=== PATIENT | female | born 1940 | race African-American/Black ===

== ENCOUNTER 2018-06-29 11:01 | Inpatient (IN) | payer MEDICARE, OTHER ==
[~2018-06-29] VITALS: Ht 177.8 cm; Wt 87.5 kg
[2018-06-29 11:02] VITALS: BP 110/41
[2018-06-29] MEDS ORDERED: PANTOPRAZOLE SO40 MG ORAL (11:05)
[2018-06-29] MEDS ORDERED: NAMENDA10 MG ORAL (11:05)
[2018-06-29] MEDS ORDERED: XALATAN2.5 ML LEFT EYE (11:05)
[2018-06-29] MEDS ORDERED: CENTRUM COMPLE1 EAC1 PO (11:05)
[2018-06-29] MEDS ORDERED: TRILEPTAL600 MG PO (11:05)
[2018-06-29] MEDS ORDERED: METFORMIN HCL500 M1 ORAL (11:05)
[2018-06-29] MEDS ORDERED: AMLODIPINE BESY10 MG ORAL (11:05)
[2018-06-29] MEDS ORDERED: XARELTO10 MG ORAL (11:05)
[2018-06-29] MEDS ORDERED: CATAPRES0.1 MG ORAL (11:05)
[2018-06-29] MEDS ORDERED: VENLAFAXINE HCL75 MG ORAL (11:05)
[2018-06-29] MEDS ORDERED: VITAMIN B-1100 MG ORAL (11:05)
[2018-06-29] MEDS: Ipratropium 0.02% Inh Soln 2.5ml UD HHN SCH ×3 (11:27→12:06)
[2018-06-29] MEDS: Albuterol ud Inhalation HHN SCH ×3 (11:28→12:06)
[2018-06-29] MEDS ORDERED: Solu-MEDROL 125mg Inj IVP ONE (11:30)
[2018-06-29] MEDS: Sodium Chloride 500ML 500 ML IV ONE ×2 (11:34→11:38)
[2018-06-29 11:48] LABS: APPEARANCE,URINE CLOUDY; BILIRUBIN, URINE NEGATIVE (NEGATIVE); GLUCOSE, URINE (UA) 1+ (NEGATIVE); KETONES,URINE NEGATIVE (NEGATIVE); LEUKOCYTE ESTERASE ,URINE 3+ (NEGATIVE); NITRITE,URINE NEGATIVE (NEGATIVE); PH,URINE 5 (4.5-8.0); PROTEIN,URINE 3+ (NEGATIVE); UROBILINOGEN,URINE 4 MG/DL (0.0-1.0)
[2018-06-29 11:50] LABS: BASOPHILS % (AUTO) 0.8 % (0.0-2.0); COLOR,URINE YELLOW; EOSINOPHILS % (AUTO) 0.4 % (0.0-3.0); HEMATOCRIT 45.5 % (37.0-47.0); HEMOGLOBIN 14.4 G/DL (12.0-16.0); MEAN CORPUSCULAR VOLUME 92 FL (80-99); MONOCYTES % (AUTO) 6.6 % (1.0-10.0); NEUTROPHILS % (AUTO) 81.3 % (45.0-75.0); PLATELET COUNT 289 K/UL (150-450); RED BLOOD COUNT 4.94 M/UL (4.20-5.40); RED CELL DISTRIBUTION WIDTH 12.3 % (11.6-14.8)
[2018-06-29 12:09] LABS: ANION GAP 4 mmol/L (5-15); BLOOD UREA NITROGEN 10 mg/dL (7-18); CALCIUM 9.5 MG/DL (8.5-10.1); CARBON DIOXIDE 28 MMOL/L (21-32); CHLORIDE 99 MMOL/L (98-107); CREATININE 0.7 MG/DL (0.55-1.30); POTASSIUM 4.6 MMOL/L (3.5-5.1); SODIUM 131 MMOL/L (136-145)
--- NOTE | 2018-06-29 12:09 | Diagnostic Imaging Report ---
Indication: Shortness of breath Technique: One view of the chest Comparison: none Findings: The heart is enlarged. There is bilateral interstitial edema possibly some airspace edema. There is evidence of bilateral pleural fluid Impression: Cardiomegaly Evidence of congestive heart failure, with interstitial and possibly airspace edema, bilateral pleural effusion
[2018-06-29 12:17] VITALS: BP 134/57
[2018-06-29 12:20] LABS: ALANINE AMINOTRANSFERASE 36 U/L (12-78); ALBUMIN 3.2 G/DL (3.4-5.0); ALBUMIN/GLOBULIN RATIO 0.8 (1.0-2.7); ALKALINE PHOSPHATASE 94 U/L (46-116); ASPARTATE AMINO TRANSFERASE 42 U/L (15-37); BILIRUBIN,TOTAL 0.6 MG/DL (0.2-1.0); CKMB 0.6 NG/ML (0.0-3.6); CREATINE KINASE 59 U/L (26-308)
[2018-06-29] MEDS ORDERED: Albuterol/Ipratropium 3ml neb HHN PRN (12:30)
[2018-06-29] MEDS ORDERED: Miralax 17gm pkt ORAL PRN (12:30)
[2018-06-29 13:12] VITALS: BP 122/53
[2018-06-29 13:43] VITALS: BP 102/46
--- NOTE | 2018-06-29 13:53 | Emergency Room Report ---
History of Present Illness General Chief Complaint: Dyspnea/Respdistress Source: Patient, Family Member, Medical Record Present Illness HPI 77-year-old female presents ED for shortness of breath 1 day. Coming from convalescent home. Wheezing. Low O2 sat. Started on breathing treatment by EMS.. Patient denies any fevers or chills. Denies chest pain. Denies cough. No other aggravating relieving factors. Denies any other associated symptoms Allergies: Coded Allergies: TAB INHIBITORS (Verified Allergy, Unknown, 06/29/18) Patient History Past Medical History: HTN, dementia Past Surgical History: none Pertinent Family History: none Social History: Denies: smoking, alcohol use, drug use Now: No Immunizations: UTD Reviewed Nursing Documentation: PMH: Agreed; PSxH: Agreed Nursing Documentation-PMH Past Medical History: No History, Except For Hx Hypertension: Yes - Contracture. UTI. Glaucoma History Of Psychiatric Problem: Yes - convulsion. depression. pressure ulcer stage 1 on sacral. Review of Systems All Other Systems: negative except mentioned in HPI Physical Exam Vital Signs Date Time Temp Pulse Resp B/P (MAP) Pulse Ox O2 Delivery O2 Flow Rate FiO2 06/29/18 10:56 99.0 110 22 124/62 96 Room Air 99.0 06/29/18 11:27 21 06/29/18 13:11 2.0 Sp02 EP Interpretation: reviewed, normal General Appearance: no apparent distress, alert, GCS 15, non-toxic Head: normocephalic, atraumatic Eyes: bilateral eye normal inspection, bilateral eye PERRL ENT: hearing grossly normal, normal pharynx, no angioedema, normal voice Neck: full range of motion, supple/symm/no masses Respiratory: chest non-tender, crackles, speaking full sentences, wheezing Cardiovascular #1: regular rate, rhythm, no edema Cardiovascular #2: 2+ carotid (R), 2+ carotid (L), 2+ radial (R), 2+ radial (L) , 2+ dorsalis pedis (R), 2+ dorsalis pedis (L) Gastrointestinal: normal bowel sounds, non tender, soft, non-distended, no guarding, no rebound Rectal: deferred Genitourinary: normal inspection, no CVA tenderness Musculoskeletal: back normal, gait/station normal, normal range of motion, non- tender Neurologic: alert, responsive, motor strength/tone normal, sensory intact, speech normal, other - dementia Psychiatric: judgement/insight normal, memory normal, mood/affect normal, no suicidal/homicidal ideation Reflexes: 3+ bicep (R), 3+ bicep (L), 3+ tricep (R), 3+ tricep (L), 3+ knee (R) , 3+ knee (L) Skin: normal color, no rash, warm/dry, well hydrated Lymphatic: no adenopathy Medical Decision Making Diagnostic Impression: Primary Impression: Pulmonary edema Qualified Codes: J81.0 - Acute pulmonary edema Additional Impression: Respiratory distress ER Course Hospital Course 77-year-old female presents ED complaining of shortness of breath, wheezing Differential diagnoses include: OK/unstable angina, contusion, muscle strain, PTX, rib fracture Clinical course Patient placed on stretcher. 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 After initial history and physical I ordered labs, EKG, chest x-ray, nebs labs reviewed- no leukocytosis, hemoglobin/hematocrit stable, electrolytes ok, troponins negative, BNP greater than 2000 EKG - NSR, no acute ischemic changes interpreted bym e Chest x-ray- cardiomegaly, billateral pleural effusions abx given. Discussed case with daughter Maria Esther Rangel ([phone]); she is power of finance attorney. States that patient was discharged lasting from [facility]. Patient was documented to have low ejection fraction and hospitalist discussed further treatment options with the patient but she declined. Patient does have dementia and is unable to make these decisions for herself. Case discussed with Dr. Locke and he agreed to accept the patient to his service for further care and support I. I feel this is a highly complex case requiring extensive working including EKG/Rhythm strip, Xray/CT/US, Blood/urine lab work, repeat exams while in ED, and administration of strong opiates/narcotics for pain control, admission to hospital or close patient follow up. Diagnosis - pulmoanry edema, respiratoy distress admitted to telemetry in serious condition Labs Test 06/29/18 11:20 White Blood Count 14.0 K/UL (4.8-10.8) Red Blood Count 4.94 M/UL (4.20-5.40) Hemoglobin 14.4 G/DL (12.0-16.0) Hematocrit 45.5 % (37.0-47.0) Mean Corpuscular Volume 92 FL (80-99) Mean Corpuscular Hemoglobin 29.1 PG (27.0-31.0) Mean Corpuscular Hemoglobin Concent 31.6 G/DL (32.0-36.0) Red Cell Distribution Width 12.3 % (11.6-14.8) Platelet Count 289 K/UL (150-450) Mean Platelet Volume 6.2 FL (6.5-10.1) Neutrophils (%) (Auto) 81.3 % (45.0-75.0) Lymphocytes (%) (Auto) 11.0 % (20.0-45.0) Monocytes (%) (Auto) 6.6 % (1.0-10.0) Eosinophils (%) (Auto) 0.4 % (0.0-3.0) Basophils (%) (Auto) 0.8 % (0.0-2.0) Urine Color Yellow Urine Appearance Cloudy Urine pH 5 (4.5-8.0) Urine Specific [place] 1.025 (1.005-1.035) Urine Protein 3+ (NEGATIVE) Urine Glucose (UA) 1+ (NEGATIVE) Urine Ketones Negative (NEGATIVE) Urine Occult Blood 2+ (NEGATIVE) Urine Nitrite Negative (NEGATIVE) Urine Bilirubin Negative (NEGATIVE) Urine Urobilinogen 4 MG/DL (0.0-1.0) Urine Leukocyte Esterase 3+ (NEGATIVE) Urine RBC 5-10 /HPF (0 - 2) Urine WBC Tntc /HPF (0 - 2) Urine Squamous Epithelial Cells Many /LPF (NONE/OCC) Urine Bacteria Few /HPF (NONE) Urine Yeast Many /HPF (NONE) Sodium Level 131 MMOL/L (136-145) Potassium Level 4.6 MMOL/L (3.5-5.1) Chloride Level 99 MMOL/L (98-107) Carbon Dioxide Level 28 MMOL/L (21-32) Anion Gap 4 mmol/L (5-15) Blood Urea Nitrogen 10 mg/dL (7-18) Creatinine 0.7 MG/DL (0.55-1.30) Estimat Glomerular Filtration Rate mL/min (>60) Glucose Level 280 MG/DL (74-106) Lactic Acid Level 1.00 mmol/L (0.4-2.0) Calcium Level 9.5 MG/DL (8.5-10.1) Total Bilirubin 0.6 MG/DL (0.2-1.0) Aspartate Amino Transf (AST/SGOT) 42 U/L (15-37) Alanine Aminotransferase (ALT/SGPT) 36 U/L (12-78) Alkaline Phosphatase 94 U/L (46-116) Total Creatine Kinase 59 U/L (26-308) Creatine Kinase MB 0.6 NG/ML (0.0-3.6) Creatine Kinase MB Relative Index 1.0 Troponin I 0.000 ng/mL (0.000-0.056) Pro-B-Type Natriuretic Peptide 2703 pg/mL (0-125) Total Protein 7.0 G/DL (6.4-8.2) Albumin 3.2 G/DL (3.4-5.0) Globulin 3.8 g/dL Albumin/Globulin Ratio 0.8 (1.0-2.7) EKG Diagnostic Results Rate: normal Rhythm: NSR ST Segments: no acute changes ASA given to the pt in ED: No Rhythm Strip Diag. Results EP Interpretation: yes Rhythm: NSR, no PVC's, no ectopy Chest X-Ray Diagnostic Results Chest X-Ray Diagnostic Results : Chest X-Ray Ordered: Yes # of Views/Limited/Complete: 1 View Indication: Shortness of Breath EP Interpretation: Yes Interpretation: no pneumothorax, no acute cardiopulmonary disease, other - bilateral effusion. cardiomegaly Impression: Other - pleural effusion Electronically Signed by: Electronically signed by Elvis Jacome MD Last Vital Signs Date Time Temp Pulse Resp B/P (MAP) Pulse Ox O2 Delivery O2 Flow Rate FiO2 06/29/18 13:43 97.9 119 20 102/46 (64) 91 97.9 06/29/18 13:12 Nasal Cannula 2.0 06/29/18 13:11 21 Status: improved Disposition: ADMITTED INPATIENT Condition: Serious Referrals: NON PHYSICIAN (PCP) Elvis Jacome MD Jun 29, 2018 13:53
[2018-06-29 16:00] VITALS: BP 106/47
[2018-06-29] MEDS: NovoLOG Insulin Flexpen SUBQ SCH ×2 (16:54→21:40)
--- NOTE | 2018-06-29 18:40 | Cardiology Report ---
APPROVED REPORT EXAM: Two-dimensional and M-mode echocardiogram with Doppler and color Doppler. INDICATION LV FUNCTION M-Mode DIMENSIONS IVSd1.5 (0.7-1.1cm)Left Atrium (MM)1.2 (1.6-4.0cm) LVDd5.7 (3.5-5.6cm)Aortic Root3.5 (2.0-3.7cm) PWd1.2 (0.7-1.1cm)Aortic Cusp Exc.1.8 (1.5-2.0cm) IVSs1.5 cm LVDs3.9 (2.5-4.0cm) PWs2.3 cm Technically difficult study due to poor apical windows. Antroseptal wall akinesia and septal wall dyskinesia is seen. Ischemic cardiomyopathy cannot be excluded. Mild left ventricular enlargement. Left ventricular ejection fraction is estimated to be 40%. No evidence of left ventricular hypertrophy. Small posterior pericardial effusion. Pleural effusion present. Left atrial chamber sizes is within normal limits . Right cardiac chamber sizes are within normal limits. Focal aortic valve sclerosis with adequate cusp excursion. Thickened mitral valve leaflets with normal excursion. Mitral annulus and aortic root calcification. Pulmonic valve not well visualized. Normal tricuspid valve structure. IVC dilated at 2.6 cm without physiologic collapse suggestive of increased RA pressure. A color flow and spectral Doppler study was performed and revealed: Trace aortic regurgitation. Mild mitral regurgitation. Diastolic function can not be assessed due to arrhythmia. Trace tricuspid regurgitation. Tricuspid systolic velocities suggests peak right ventricular systolic pressure of 33mmHg, Trace pulmonic regurgitation.
[2018-06-29 20:00] VITALS: BP 108/51
[2018-06-29] MEDS: OXcarbazepine 150mg tab ORAL SCH (21:38)
[2018-06-30] VITALS: BP 120/62
[2018-06-30 04:00] VITALS: BP 132/81
[2018-06-30] MEDS: NovoLOG Insulin Flexpen SUBQ SCH ×4 (06:12→21:17)
[2018-06-30 07:50] LABS: ANION GAP 5 mmol/L (5-15); BLOOD UREA NITROGEN 12 mg/dL (7-18); CALCIUM 9.8 MG/DL (8.5-10.1); CARBON DIOXIDE 31 MMOL/L (21-32); CHLORIDE 101 MMOL/L (98-107); CREATININE 0.8 MG/DL (0.55-1.30); POTASSIUM 4.4 MMOL/L (3.5-5.1); SODIUM 137 MMOL/L (136-145)
[2018-06-30 07:58] VITALS: BP 108/51
[2018-06-30] MEDS: Xarelto 10mg tab ORAL SCH (08:04)
--- NOTE | 2018-06-30 08:33 | Consultation ---
History of Present Illness General Date patient seen: Jun 30, 2018 Time patient seen: 08:28 Chief Complaint: Dyspnea/Respdistress Present Illness HPI 77 year old female with CHF, HTN, HDL presents with CP SOB, CXR shows pulmonary edema, LV systolic dysfunction with wall motion abnormalities. Troponin negative. Allergies: Coded Allergies: TAB INHIBITORS (Verified Allergy, Unknown, 06/29/18) Medication History Scheduled Amlodipine Besylate* (Amlodipine Besylate*), 10 MG ORAL DAILY, (Reported) Clonidine Hcl* (Catapres*), 0.1 MG ORAL EVERY 6 HOURS, (Reported) Latanoprost* (Xalatan*), 1 DROP LEFT EYE BEDTIME, (Reported) Memantine Hcl* (Namenda*), 10 MG ORAL QHS, (Reported) Metformin Hcl* (Metformin Hcl*), 500 MG ORAL TWICE A DAY, (Reported) Oxcarbazepine* (Trileptal*), 150 MG PO QHS, (Reported) Pantoprazole* (Pantoprazole*), 40 MG ORAL DAILY, (Reported) Rivaroxaban (Xarelto*), 20 MG ORAL DAILY, (Reported) Thiamine Hcl* (Vitamin B-1*), 100 MG ORAL DAILY, (Reported) Venlafaxine Hcl* (Venlafaxine Hcl*), 75 MG ORAL QID, (Reported) Miscellaneous Medications Multivitamin/Iron/Folic Acid (Centrum Complete Multivit Tab), 1 EACH PO, ( Reported) Patient History Healthcare decision maker Resuscitation status Full Code Advanced Directive on File Review of Systems Eye: Reports: no symptoms ENT: Reports: no symptoms Respiratory: Reports: shortness of breath Gastrointestinal: Reports: no symptoms Genitourinary: Reports: no symptoms Musculoskeletal: Reports: no symptoms Skin: Reports: no symptoms Neurological: Reports: no symptoms Endocrine: Reports: no symptoms Hematologic/Lymphatic: Reports: no symptoms Physical Exam General Appearance: no apparent distress Lines, tubes and drains: peripheral HEENT: normocephalic, atraumatic Neck: non-tender, normal alignment Respiratory/Chest: chest wall non-tender, crackles/rales Cardiovascular/Chest: normal peripheral pulses, normal rate Abdomen: normal bowel sounds, non tender Extremities: normal range of motion, non-tender Skin Exam: normal pigmentation Neurologic: 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 can 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 II-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 grossly normal, no motor/sensory deficits Last 24 Hour Vital Signs Date Time Temp Pulse Resp B/P (MAP) Pulse Ox O2 Delivery O2 Flow Rate FiO2 06/30/18 08:04 92 108/51 06/30/18 07:58 97.8 92 16 108/51 (70) 94 97.8 06/30/18 06:11 123/84 06/30/18 04:00 85 06/30/18 00:00 120/62 06/30/18 00:00 97.9 100 18 120/62 (81) 92 97.9 06/30/18 00:00 96 06/29/18 21:00 Nasal Cannula 2.0 06/29/18 20:00 105 06/29/18 20:00 98.2 104 20 108/51 (70) 91 98.2 06/29/18 17:12 106/47 06/29/18 16:00 105 06/29/18 16:00 97.3 106 21 106/47 (66) 94 97.3 06/29/18 14:38 Nasal Cannula 2.0 06/29/18 13:43 97.9 119 20 102/46 (64) 91 97.9 06/29/18 13:35 116 06/29/18 13:12 97.0 118 16 122/53 100 Nasal Cannula 2.0 97.0 06/29/18 13:11 97.0 118 16 122/53 100 Nasal Cannula 2.0 21 97.0 06/29/18 12:33 72 21 100 Room Air 21 06/29/18 12:17 86 15 134/57 99 06/29/18 12:06 103 14 100 Room Air 21 06/29/18 11:58 108 17 100 Room Air 21 06/29/18 11:27 107 21 100 06/29/18 11:27 108 21 Room Air 21 06/29/18 11:02 109 22 Room Air 06/29/18 11:02 97.0 106 21 110/41 99 Non-Rebreather 97.0 06/29/18 10:56 99.0 110 22 124/62 96 Room Air 99.0 Intake and Output 06/29/18 06/30/18 19:00 07:00 Intake Total 200 ml 240 ml Output Total 700 ml Balance 200 ml -460 ml Intake Oral 200 ml 240 ml Output Urine Total 700 ml # Voids 2 # Bowel Movements 1 2 Laboratory Tests Test 06/29/18 11:20 06/30/18 05:40 White Blood Count 14.0 K/UL (4.8-10.8) H Red Blood Count 4.94 M/UL (4.20-5.40) Hemoglobin 14.4 G/DL (12.0-16.0) Hematocrit 45.5 % (37.0-47.0) Mean Corpuscular Volume 92 FL (80-99) Mean Corpuscular Hemoglobin 29.1 PG (27.0-31.0) Mean Corpuscular Hemoglobin Concent 31.6 G/DL (32.0-36.0) L Red Cell Distribution Width 12.3 % (11.6-14.8) Platelet Count 289 K/UL (150-450) Mean Platelet Volume 6.2 FL (6.5-10.1) L Neutrophils (%) (Auto) 81.3 % (45.0-75.0) H Lymphocytes (%) (Auto) 11.0 % (20.0-45.0) L Monocytes (%) (Auto) 6.6 % (1.0-10.0) Eosinophils (%) (Auto) 0.4 % (0.0-3.0) Basophils (%) (Auto) 0.8 % (0.0-2.0) Urine Color Yellow Urine Appearance Cloudy Urine pH 5 (4.5-8.0) Urine Specific [place] 1.025 (1.005-1.035) Urine Protein 3+ (NEGATIVE) H Urine Glucose (UA) 1+ (NEGATIVE) H Urine Ketones Negative (NEGATIVE) Urine Occult Blood 2+ (NEGATIVE) H Urine Nitrite Negative (NEGATIVE) Urine Bilirubin Negative (NEGATIVE) Urine Urobilinogen 4 MG/DL (0.0-1.0) H Urine Leukocyte Esterase 3+ (NEGATIVE) H Urine RBC 5-10 /HPF (0 - 2) H Urine WBC Tntc /HPF (0 - 2) H Urine Squamous Epithelial Cells Many /LPF (NONE/OCC) H Urine Bacteria Few /HPF (NONE) Urine Yeast Many /HPF (NONE) H Sodium Level 131 MMOL/L (136-145) L 137 MMOL/L (136-145) Potassium Level 4.6 MMOL/L (3.5-5.1) 4.4 MMOL/L (3.5-5.1) Chloride Level 99 MMOL/L (98-107) 101 MMOL/L (98-107) Carbon Dioxide Level 28 MMOL/L (21-32) 31 MMOL/L (21-32) Anion Gap 4 mmol/L (5-15) L 5 mmol/L (5-15) Blood Urea Nitrogen 10 mg/dL (7-18) 12 mg/dL (7-18) Creatinine 0.7 MG/DL (0.55-1.30) 0.8 MG/DL (0.55-1.30) Estimat Glomerular Filtration Rate mL/min (>60) mL/min (>60) Glucose Level 280 MG/DL (74-106) H 138 MG/DL (74-106) #H Lactic Acid Level 1.00 mmol/L (0.4-2.0) Calcium Level 9.5 MG/DL (8.5-10.1) 9.8 MG/DL (8.5-10.1) Total Bilirubin 0.6 MG/DL (0.2-1.0) Aspartate Amino Transf (AST/SGOT) 42 U/L (15-37) H Alanine Aminotransferase (ALT/SGPT) 36 U/L (12-78) Alkaline Phosphatase 94 U/L (46-116) Total Creatine Kinase 59 U/L (26-308) Creatine Kinase MB 0.6 NG/ML (0.0-3.6) Creatine Kinase MB Relative Index 1.0 Troponin I 0.000 ng/mL (0.000-0.056) Pro-B-Type Natriuretic Peptide 2703 pg/mL (0-125) H Total Protein 7.0 G/DL (6.4-8.2) Albumin 3.2 G/DL (3.4-5.0) L Globulin 3.8 g/dL Albumin/Globulin Ratio 0.8 (1.0-2.7) L Microbiology Date/Time Source Procedure Growth Status 06/29/18 11:20 Urine,Clean Catch Urine Culture - Preliminary Resulted 06/29/18 11:30 Rectum Received Height (Feet): 5 Height (Inches): 10.00 Weight (Pounds): 193 Medications Current Medications Medications (Trade) Dose Ordered Sig/Young Route PRN Reason Start Time Stop Time Status Last Admin Dose Admin Acetaminophen (Tylenol) 650 mg Q4H PRN ORAL T>100.5 06/29/18 12:30 07/29/18 12:29 Albuterol/ Ipratropium (Albuterol/ Ipratropium) 3 ml Q4H PRN HHN Shortness of Breath 06/29/18 12:30 07/04/18 12:29 Amlodipine Besylate (Norvasc) 10 mg DAILY ORAL 06/30/18 09:00 07/30/18 08:59 06/30/18 08:04 Clonidine HCl (Catapres Tab) 0.1 mg EVERY 6 HOURS ORAL 06/29/18 18:00 07/29/18 17:59 06/30/18 06:11 Dextrose (Dextrose 50%) 25 ml PRN IV Hypoglycemia 06/29/18 12:45 07/29/18 12:44 Dextrose (Dextrose 50%) 50 ml PRN IV hypoglycemia 06/29/18 12:45 07/29/18 12:44 Furosemide (Lasix) 40 mg EVERY 8 HOURS IV 06/29/18 14:00 07/29/18 13:59 06/30/18 06:10 Insulin Aspart (NovoLOG) BEFORE MEALS AND HS SUBQ 06/29/18 16:30 07/29/18 16:29 06/30/18 06:12 Ondansetron HCl (Zofran) 4 mg Q6H PRN IVP Nausea & Vomiting 06/29/18 12:30 07/29/18 12:29 Oxcarbazepine (Trileptal) 150 mg QHS ORAL 06/29/18 21:00 07/29/18 20:59 06/29/18 21:38 Polyethylene Glycol (Miralax) 17 gm DAILYPRN PRN ORAL Constipation 06/29/18 12:30 07/29/18 12:29 Rivaroxaban (Xarelto) 20 mg DAILY ORAL 06/30/18 09:00 07/30/18 08:59 06/30/18 08:04 Temazepam (Restoril) 15 mg HSPRN PRN ORAL Insomnia 06/29/18 21:00 07/06/18 20:59 Assessment/Plan Status: stable Assessment/Plan Assessment: Shortness of breath Chest pain CHF systolic exacerbation Arrhythmias - atrial fibrillation Urinary tract infection Diabetes COPD Plan: Serial EKG/Troponin Echocardiogram reviewed -LVEF 40% global hypokinesis CXR reviewed with pulmonary edema Lasix 40 mg IV BID, monitor urine output and renal function 1.5 liter fluid restriction Pulmonary toilet/duonebs IV steroid boost Singulair Nitro prn chest pain Aspirin Statin Xarelto anticoagulation Change amlodipine to losartan 25 mg for afterload reduction Start metoprolol XL 50 mg daily Insulin per primary Ambulate Art Curtis M.D. Jun 30, 2018 08:33
[2018-06-30] MEDS: Losartan 25mg tab ORAL SCH (08:39)
[2018-06-30] MEDS: Metoprolol Succinate XL 25mg tab ORAL SCH (09:33)
--- NOTE | 2018-06-30 10:30 | Diagnostic Imaging Report ---
Indication: Dyspnea Technique: One view of the chest Comparison: 06/29/2018 Findings: Bilateral interstitial congestion appears somewhat improved. Bilateral pleural effusions persist, probably unchanged. The heart remains enlarged. Impression: Improved but persistent bilateral interstitial congestion, over one day Stable bilateral pleural effusions
--- NOTE | 2018-06-30 11:23 | Consultation ---
History of Present Illness General Date patient seen: Jun 30, 2018 Chief Complaint: Dyspnea/Respdistress Present Illness HPI 77-year-old female with hx of mdd and anxiety presents ED for shortness of breath 1 day. the pt has depressive and anxiety sxs. the pt is on effexor. the pt has not taken meds yet. the pt has no si/hi Allergies: Coded Allergies: TAB INHIBITORS (Verified Allergy, Unknown, 06/29/18) Medication History Scheduled Amlodipine Besylate* (Amlodipine Besylate*), 10 MG ORAL DAILY, (Reported) Clonidine Hcl* (Catapres*), 0.1 MG ORAL EVERY 6 HOURS, (Reported) Latanoprost* (Xalatan*), 1 DROP LEFT EYE BEDTIME, (Reported) Memantine Hcl* (Namenda*), 10 MG ORAL QHS, (Reported) Metformin Hcl* (Metformin Hcl*), 500 MG ORAL TWICE A DAY, (Reported) Oxcarbazepine* (Trileptal*), 150 MG PO QHS, (Reported) Pantoprazole* (Pantoprazole*), 40 MG ORAL DAILY, (Reported) Rivaroxaban (Xarelto*), 20 MG ORAL DAILY, (Reported) Thiamine Hcl* (Vitamin B-1*), 100 MG ORAL DAILY, (Reported) Venlafaxine Hcl* (Venlafaxine Hcl*), 75 MG ORAL QID, (Reported) Miscellaneous Medications Multivitamin/Iron/Folic Acid (Centrum Complete Multivit Tab), 1 EACH PO, ( Reported) Patient History Healthcare decision maker Resuscitation status Full Code Advanced Directive on File Past Medical/Surgical History Past Medical/Surgical History: (1) Respiratory distress (2) Pulmonary edema Review of Systems Psychiatric: Reports: prior hx, anxiety, depressed feelings, emotional problems Physical Exam General Appearance: no apparent distress, alert Neurologic: oriented x 3, responsive, depressed affect Last 24 Hour Vital Signs Date Time Temp Pulse Resp B/P (MAP) Pulse Ox O2 Delivery O2 Flow Rate FiO2 06/30/18 09:34 122/64 06/30/18 09:33 91 122/64 06/30/18 09:00 Nasal Cannula 2.0 06/30/18 08:39 108/51 06/30/18 08:04 92 108/51 06/30/18 08:00 92 06/30/18 07:58 97.8 92 16 108/51 (70) 94 97.8 06/30/18 06:11 123/84 06/30/18 04:00 85 06/30/18 00:00 120/62 06/30/18 00:00 97.9 100 18 120/62 (81) 92 97.9 06/30/18 00:00 96 06/29/18 21:00 Nasal Cannula 2.0 06/29/18 20:00 105 06/29/18 20:00 98.2 104 20 108/51 (70) 91 98.2 06/29/18 17:12 106/47 06/29/18 16:00 105 06/29/18 16:00 97.3 106 21 106/47 (66) 94 97.3 06/29/18 14:38 Nasal Cannula 2.0 06/29/18 13:43 97.9 119 20 102/46 (64) 91 97.9 06/29/18 13:35 116 06/29/18 13:12 97.0 118 16 122/53 100 Nasal Cannula 2.0 97.0 06/29/18 13:11 97.0 118 16 122/53 100 Nasal Cannula 2.0 21 97.0 06/29/18 12:33 72 21 100 Room Air 21 06/29/18 12:17 86 15 134/57 99 06/29/18 12:06 103 14 100 Room Air 21 06/29/18 11:58 108 17 100 Room Air 21 06/29/18 11:27 107 21 100 06/29/18 11:27 108 21 Room Air 21 Intake and Output 06/29/18 06/30/18 19:00 07:00 Intake Total 200 ml 240 ml Output Total 700 ml Balance 200 ml -460 ml Intake Oral 200 ml 240 ml Output Urine Total 700 ml # Voids 2 # Bowel Movements 1 2 Laboratory Tests Test 06/30/18 05:40 Sodium Level 137 MMOL/L (136-145) Potassium Level 4.4 MMOL/L (3.5-5.1) Chloride Level 101 MMOL/L (98-107) Carbon Dioxide Level 31 MMOL/L (21-32) Anion Gap 5 mmol/L (5-15) Blood Urea Nitrogen 12 mg/dL (7-18) Creatinine 0.8 MG/DL (0.55-1.30) Estimat Glomerular Filtration Rate mL/min (>60) Glucose Level 138 MG/DL (74-106) #H Calcium Level 9.8 MG/DL (8.5-10.1) Microbiology Date/Time Source Procedure Growth Status 06/29/18 11:30 Rectum Received Height (Feet): 5 Height (Inches): 10.00 Weight (Pounds): 193 Medications Current Medications Medications (Trade) Dose Ordered Sig/Young Route PRN Reason Start Time Stop Time Status Last Admin Dose Admin Acetaminophen (Tylenol) 650 mg Q4H PRN ORAL T>100.5 06/29/18 12:30 07/29/18 12:29 Albuterol/ Ipratropium (Albuterol/ Ipratropium) 3 ml Q4H PRN HHN Shortness of Breath 06/29/18 12:30 07/04/18 12:29 Clonidine HCl (Catapres Tab) 0.1 mg EVERY 12 HOURS ORAL 06/30/18 09:00 07/29/18 17:59 06/30/18 09:34 Dextrose (Dextrose 50%) 25 ml PRN IV Hypoglycemia 06/29/18 12:45 07/29/18 12:44 Dextrose (Dextrose 50%) 50 ml PRN IV hypoglycemia 06/29/18 12:45 07/29/18 12:44 Furosemide (Lasix) 40 mg EVERY 8 HOURS IV 06/29/18 14:00 07/29/18 13:59 06/30/18 06:10 Insulin Aspart (NovoLOG) BEFORE MEALS AND HS SUBQ 06/29/18 16:30 07/29/18 16:29 06/30/18 06:12 Losartan Potassium (Cozaar) 25 mg DAILY ORAL 06/30/18 09:00 07/30/18 08:59 Metoprolol Succinate (Toprol XL) 25 mg DAILY ORAL 06/30/18 09:00 07/30/18 08:59 06/30/18 09:33 Ondansetron HCl (Zofran) 4 mg Q6H PRN IVP Nausea & Vomiting 06/29/18 12:30 07/29/18 12:29 Oxcarbazepine (Trileptal) 150 mg QHS ORAL 06/29/18 21:00 07/29/18 20:59 06/29/18 21:38 Polyethylene Glycol (Miralax) 17 gm DAILYPRN PRN ORAL Constipation 06/29/18 12:30 07/29/18 12:29 Rivaroxaban (Xarelto) 20 mg DAILY ORAL 06/30/18 09:00 07/30/18 08:59 06/30/18 08:04 Temazepam (Restoril) 15 mg HSPRN PRN ORAL Insomnia 06/29/18 21:00 07/06/18 20:59 Assessment/Plan Assessment/Plan mdd anxiety effexor 75mg qam provided ro/Milton López MD Jun 30, 2018 11:23
[2018-06-30 11:56] VITALS: BP 126/55
[2018-06-30] MEDS: Venlafaxine XR 75mg cap ORAL SCH (13:29)
--- NOTE | 2018-06-30 14:49 | History and Physical ---
History of Present Illness General Date patient seen: Jun 30, 2018 Reason for Hospitalization: Dyspnea/Respdistress Present Illness HPI 77-year-old female with hx of dementia, CHF, CAD, [facility] presented to ED for shortness of breath. Pt was wheezing and had low O2 sat. Started on breathing treatment by EMS.. Patient denies any fevers or chills. Denies chest pain. Denies cough. No other aggravating relieving factors. Pt was recently discharged from [facility]. Her CXR showed pulmonary edema and pleural effusion. Allergies: Coded Allergies: TAB INHIBITORS (Verified Allergy, Unknown, 06/29/18) Medication History Scheduled Amlodipine Besylate* (Amlodipine Besylate*), 10 MG ORAL DAILY, (Reported) Clonidine Hcl* (Catapres*), 0.1 MG ORAL EVERY 6 HOURS, (Reported) Latanoprost* (Xalatan*), 1 DROP LEFT EYE BEDTIME, (Reported) Memantine Hcl* (Namenda*), 10 MG ORAL QHS, (Reported) Metformin Hcl* (Metformin Hcl*), 500 MG ORAL TWICE A DAY, (Reported) Oxcarbazepine* (Trileptal*), 150 MG PO QHS, (Reported) Pantoprazole* (Pantoprazole*), 40 MG ORAL DAILY, (Reported) Rivaroxaban (Xarelto*), 20 MG ORAL DAILY, (Reported) Thiamine Hcl* (Vitamin B-1*), 100 MG ORAL DAILY, (Reported) Venlafaxine Hcl* (Venlafaxine Hcl*), 75 MG ORAL QID, (Reported) Miscellaneous Medications Multivitamin/Iron/Folic Acid (Centrum Complete Multivit Tab), 1 EACH PO, ( Reported) Patient History Healthcare decision maker Resuscitation status Full Code Advanced Directive on File Past Medical/Surgical History Past Medical/Surgical History: (1) CAD (coronary artery disease) (2) Dementia (3) DVT (deep venous thrombosis) (4) Diabetes mellitus Review of Systems All Other Systems: negative except mentioned in HPI Physical Exam General Appearance: WD/WN, no apparent distress Lines, tubes and drains: peripheral, central line HEENT: normocephalic, atraumatic Neck: non-tender, normal alignment Respiratory/Chest: chest wall non-tender, lungs clear Cardiovascular/Chest: normal peripheral pulses, normal rate Abdomen: normal bowel sounds Genitourinary/Rectal: normal genital exam Extremities: normal range of motion 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 Last 24 Hour Vital Signs Date Time Temp Pulse Resp B/P (MAP) Pulse Ox O2 Delivery O2 Flow Rate FiO2 06/30/18 12:00 75 06/30/18 11:56 98.1 99 16 126/55 (78) 96 98.1 06/30/18 09:34 122/64 06/30/18 09:33 91 122/64 06/30/18 09:00 Nasal Cannula 2.0 06/30/18 08:39 108/51 06/30/18 08:04 92 108/51 06/30/18 08:00 92 06/30/18 07:58 97.8 92 16 108/51 (70) 94 97.8 06/30/18 06:11 123/84 06/30/18 04:00 85 06/30/18 00:00 120/62 06/30/18 00:00 97.9 100 18 120/62 (81) 92 97.9 06/30/18 00:00 96 06/29/18 21:00 Nasal Cannula 2.0 06/29/18 20:00 105 06/29/18 20:00 98.2 104 20 108/51 (70) 91 98.2 06/29/18 17:12 106/47 06/29/18 16:00 105 06/29/18 16:00 97.3 106 21 106/47 (66) 94 97.3 06/29/18 14:38 Nasal Cannula 2.0 Intake and Output 06/29/18 06/30/18 19:00 07:00 Intake Total 200 ml 240 ml Output Total 700 ml Balance 200 ml -460 ml Intake Oral 200 ml 240 ml Output Urine Total 700 ml # Voids 2 # Bowel Movements 1 2 Laboratory Tests Test 06/30/18 05:40 06/30/18 12:30 Sodium Level 137 MMOL/L (136-145) Potassium Level 4.4 MMOL/L (3.5-5.1) Chloride Level 101 MMOL/L (98-107) Carbon Dioxide Level 31 MMOL/L (21-32) Anion Gap 5 mmol/L (5-15) Blood Urea Nitrogen 12 mg/dL (7-18) Creatinine 0.8 MG/DL (0.55-1.30) Estimat Glomerular Filtration Rate mL/min (>60) Glucose Level 138 MG/DL (74-106) #H Calcium Level 9.8 MG/DL (8.5-10.1) Troponin I 0.024 ng/mL (0.000-0.056) Height (Feet): 5 Height (Inches): 10.00 Weight (Pounds): 193 Medications Current Medications Medications (Trade) Dose Ordered Sig/Young Route PRN Reason Start Time Stop Time Status Last Admin Dose Admin Acetaminophen (Tylenol) 650 mg Q4H PRN ORAL T>100.5 06/29/18 12:30 07/29/18 12:29 Albuterol/ Ipratropium (Albuterol/ Ipratropium) 3 ml Q4H PRN HHN Shortness of Breath 06/29/18 12:30 07/04/18 12:29 Clonidine HCl (Catapres Tab) 0.1 mg EVERY 12 HOURS ORAL 06/30/18 09:00 07/29/18 17:59 06/30/18 09:34 Dextrose (Dextrose 50%) 25 ml PRN IV Hypoglycemia 06/29/18 12:45 07/29/18 12:44 Dextrose (Dextrose 50%) 50 ml PRN IV hypoglycemia 06/29/18 12:45 07/29/18 12:44 Furosemide (Lasix) 40 mg EVERY 8 HOURS IV 06/29/18 14:00 07/29/18 13:59 06/30/18 13:30 Insulin Aspart (NovoLOG) BEFORE MEALS AND HS SUBQ 06/29/18 16:30 07/29/18 16:29 06/30/18 11:23 Losartan Potassium (Cozaar) 25 mg DAILY ORAL 06/30/18 09:00 07/30/18 08:59 Metoprolol Succinate (Toprol XL) 25 mg DAILY ORAL 06/30/18 09:00 07/30/18 08:59 06/30/18 09:33 Ondansetron HCl (Zofran) 4 mg Q6H PRN IVP Nausea & Vomiting 06/29/18 12:30 07/29/18 12:29 Oxcarbazepine (Trileptal) 150 mg QHS ORAL 06/29/18 21:00 07/29/18 20:59 06/29/18 21:38 Polyethylene Glycol (Miralax) 17 gm DAILYPRN PRN ORAL Constipation 06/29/18 12:30 07/29/18 12:29 Rivaroxaban (Xarelto) 20 mg DAILY ORAL 06/30/18 09:00 07/30/18 08:59 06/30/18 08:04 Temazepam (Restoril) 15 mg HSPRN PRN ORAL Insomnia 06/29/18 21:00 07/06/18 20:59 Venlafaxine HCl (Effexor-XR) 75 mg DAILY ORAL 06/30/18 13:00 07/30/18 12:59 06/30/18 13:29 Assessment/Plan Problem List: (1) Acute respiratory failure ICD Codes: J96.00 - Acute respiratory failure, unspecified whether with hypoxia or hypercapnia SNOMED: 07252925 (2) Pulmonary edema ICD Codes: J81.1 - Chronic pulmonary edema SNOMED: 14896282 Qualifiers: Qualified Codes: J81.0 - Acute pulmonary edema (3) CAD (coronary artery disease) ICD Codes: I25.10 - Atherosclerotic heart disease of [place] coronary artery without angina pectoris SNOMED: 15020675 (4) DVT (deep venous thrombosis) ICD Codes: I82.409 - Acute embolism and thrombosis of unspecified deep veins of unspecified lower extremity SNOMED: 287094028 (5) Diabetes mellitus ICD Codes: E11.9 - Type 2 diabetes mellitus without complications SNOMED: 75111970 (6) Dementia ICD Codes: F03.90 - Unspecified dementia without behavioral disturbance SNOMED: 01902347 Assessment/Plan echo venous doppler check BNP respiratory treatment check electrolytes titrate fio2 to sat of 92% d/w pts daughter extensively Mariah Locke MD Jun 30, 2018 14:49
[2018-06-30 15:26] VITALS: BP 132/65
[2018-06-30 19:56] VITALS: BP 101/51
[2018-06-30] MEDS: OXcarbazepine 150mg tab ORAL SCH (21:16)
[2018-07-01 00:15] VITALS: BP 104/51
[2018-07-01 04:00] VITALS: BP 118/52
[2018-07-01] MEDS: NovoLOG Insulin Flexpen SUBQ SCH ×4 (05:58→21:33)
[2018-07-01 07:43] LABS: EOSINOPHILS % (AUTO) 1.1 % (0.0-3.0); HEMATOCRIT 41.3 % (37.0-47.0); HEMOGLOBIN 13.6 G/DL (12.0-16.0); LYMPHOCYTES % (AUTO) 25.7 % (20.0-45.0); MEAN CORPUSCULAR VOLUME 91 FL (80-99); MONOCYTES % (AUTO) 7.2 % (1.0-10.0); PLATELET COUNT 277 K/UL (150-450); RED BLOOD COUNT 4.54 M/UL (4.20-5.40); RED CELL DISTRIBUTION WIDTH 12.4 % (11.6-14.8); WHITE BLOOD COUNT 11.2 K/UL (4.8-10.8)
[2018-07-01 08:00] VITALS: BP 104/50
[2018-07-01 08:18] LABS: ALANINE AMINOTRANSFERASE 24 U/L (12-78); ALBUMIN 3.1 G/DL (3.4-5.0); ALBUMIN/GLOBULIN RATIO 0.9 (1.0-2.7); ALKALINE PHOSPHATASE 66 U/L (46-116); ANION GAP 4 mmol/L (5-15); ASPARTATE AMINO TRANSFERASE 14 U/L (15-37); BILIRUBIN,TOTAL 0.5 MG/DL (0.2-1.0); BLOOD UREA NITROGEN 20 mg/dL (7-18); CALCIUM 9.9 MG/DL (8.5-10.1); CARBON DIOXIDE 36 MMOL/L (21-32); CHLORIDE 99 MMOL/L (98-107); CREATININE 0.8 MG/DL (0.55-1.30); POTASSIUM 3.5 MMOL/L (3.5-5.1); SODIUM 139 MMOL/L (136-145)
--- NOTE | 2018-07-01 08:26 | Diagnostic Imaging Report ---
Indication: Dyspnea Technique: One view of the chest Comparison: 06/30/2018 Findings: Previously demonstrated bilateral pleural fluid appears slightly improved. Portal and interstitial congestive changes also appear slightly improved. The heart remains enlarged. Impression: Interim slight improvement of previously demonstrated bilateral pleural effusions and interstitial congestion
[2018-07-01] MEDS: Metoprolol Succinate XL 25mg tab ORAL SCH (09:37)
[2018-07-01] MEDS: Venlafaxine XR 75mg cap ORAL SCH (09:37)
[2018-07-01] MEDS: Losartan 25mg tab ORAL SCH (09:37)
[2018-07-01] MEDS: Xarelto 10mg tab ORAL SCH (09:38)
--- NOTE | 2018-07-01 10:17 | Cardiology Progress Note ---
Assessment/Plan Status: stable Assessment/Plan Assessment: Shortness of breath Chest pain CHF systolic exacerbation Arrhythmias - atrial fibrillation Urinary tract infection Diabetes COPD Plan: Serial EKG/Troponin Echocardiogram reviewed -LVEF 40% global hypokinesis CXR reviewed with pulmonary edema Lasix 40 mg IV BID, monitor urine output and renal function 1.5 liter fluid restriction Pulmonary toilet/duonebs IV steroid boost Singulair Nitro prn chest pain Aspirin Statin Xarelto anticoagulation Change amlodipine to losartan 25 mg for afterload reduction Start metoprolol XL 50 mg daily Insulin per primary Ambulate Subjective Cardiovascular: Reports: no symptoms Respiratory: Reports: no symptoms Gastrointestinal/Abdominal: Reports: no symptoms Genitourinary: Reports: no symptoms Subjective No acute events vitals stable, CXR Interim slight improvement of previously demonstrated bilateral pleural effusions and interstitial congestion Objective Last 24 Hour Vital Signs Date Time Temp Pulse Resp B/P (MAP) Pulse Ox O2 Delivery O2 Flow Rate FiO2 07/01/18 09:37 104/50 07/01/18 09:37 80 104/50 07/01/18 09:00 104/50 07/01/18 08:00 97.9 80 18 104/50 (68) 97 97.9 80 07/01/18 04:00 96.3 77 16 118/52 (74) 96 96.3 77 07/01/18 04:00 69 07/01/18 00:15 97.5 75 20 104/51 (68) 96 97.5 75 07/01/18 00:00 71 06/30/18 21:00 Nasal Cannula 2.0 06/30/18 20:00 75 06/30/18 19:56 97.7 79 15 101/51 (68) 93 97.7 79 06/30/18 16:00 71 06/30/18 15:26 97.9 81 16 132/65 (87) 96 97.9 06/30/18 12:00 75 06/30/18 11:56 98.1 99 16 126/55 (78) 96 98.1 General Appearance: no apparent distress, alert EENT: PERRL/EOMI, normal ENT inspection Neck: non-tender, normal alignment Rhythm: NSR Cardiovascular: normal peripheral pulses, normal rate Respiratory/Chest: chest wall non-tender, lungs clear Abdomen: normal bowel sounds, non tender Extremities: normal range of motion, non-tender Neurologic: pt escort II-XII grossly normal Intake and Output 06/30/18 07/01/18 19:00 07:00 Intake Total 120 ml Output Total 1900 ml 1500 ml Balance -1780 ml -1500 ml Intake Oral 120 ml Output Urine Total 1900 ml 1500 ml # Voids 3 # Bowel Movements 6 1 Laboratory Tests Test 06/30/18 12:30 07/01/18 07:16 Troponin I 0.024 ng/mL (0.000-0.056) 0.003 ng/mL (0.000-0.056) White Blood Count 11.2 K/UL (4.8-10.8) H Red Blood Count 4.54 M/UL (4.20-5.40) Hemoglobin 13.6 G/DL (12.0-16.0) Hematocrit 41.3 % (37.0-47.0) Mean Corpuscular Volume 91 FL (80-99) Mean Corpuscular Hemoglobin 30.0 PG (27.0-31.0) Mean Corpuscular Hemoglobin Concent 33.0 G/DL (32.0-36.0) Red Cell Distribution Width 12.4 % (11.6-14.8) Platelet Count 277 K/UL (150-450) Mean Platelet Volume 6.0 FL (6.5-10.1) L Neutrophils (%) (Auto) 65.0 % (45.0-75.0) Lymphocytes (%) (Auto) 25.7 % (20.0-45.0) Monocytes (%) (Auto) 7.2 % (1.0-10.0) Eosinophils (%) (Auto) 1.1 % (0.0-3.0) Basophils (%) (Auto) 1.0 % (0.0-2.0) Sodium Level 139 MMOL/L (136-145) Potassium Level 3.5 MMOL/L (3.5-5.1) Chloride Level 99 MMOL/L (98-107) Carbon Dioxide Level 36 MMOL/L (21-32) H Anion Gap 4 mmol/L (5-15) L Blood Urea Nitrogen 20 mg/dL (7-18) H Creatinine 0.8 MG/DL (0.55-1.30) Estimat Glomerular Filtration Rate mL/min (>60) Glucose Level 98 MG/DL (74-106) Calcium Level 9.9 MG/DL (8.5-10.1) Total Bilirubin 0.5 MG/DL (0.2-1.0) Aspartate Amino Transf (AST/SGOT) 14 U/L (15-37) L Alanine Aminotransferase (ALT/SGPT) 24 U/L (12-78) Alkaline Phosphatase 66 U/L (46-116) Pro-B-Type Natriuretic Peptide 1696 pg/mL (0-125) H Total Protein 6.5 G/DL (6.4-8.2) Albumin 3.1 G/DL (3.4-5.0) L Globulin 3.4 g/dL Albumin/Globulin Ratio 0.9 (1.0-2.7) L Microbiology Date/Time Source Procedure Growth Status 06/29/18 11:35 Blood Blood Culture - Preliminary NO GROWTH AFTER 24 HOURS Resulted 06/29/18 11:20 Blood Blood Culture - Preliminary NO GROWTH AFTER 24 HOURS Resulted 06/29/18 11:30 Nasal Nares MRSA Culture - Final NO METHICILLIN RESISTANT STAPH AUREUS... Complete 06/29/18 11:20 Urine,Clean Catch Urine Culture - Preliminary YEAST Resulted 06/29/18 11:30 Rectum VRE Culture - Final Enterococcus Faecalis - Vre Complete 06/29/18 11:30 Rectum - Final NO CARBAPENEM-RESISTANT ENTEROBACTERI... Complete Art Curtis M.D. Jul 01, 2018 10:17
[2018-07-01 12:00] VITALS: BP 116/54
--- NOTE | 2018-07-01 12:54 | General Progress Note ---
Assessment/Plan Problem List: (1) Pulmonary edema ICD Codes: J81.1 - Chronic pulmonary edema SNOMED: 43625112 Qualifiers: Qualified Codes: J81.0 - Acute pulmonary edema (2) CAD (coronary artery disease) ICD Codes: I25.10 - Atherosclerotic heart disease of [place] coronary artery without angina pectoris SNOMED: 49257723 (3) Diabetes mellitus ICD Codes: E11.9 - Type 2 diabetes mellitus without complications SNOMED: 19248977 (4) DVT (deep venous thrombosis) ICD Codes: I82.409 - Acute embolism and thrombosis of unspecified deep veins of unspecified lower extremity SNOMED: 227440527 Status Narrative (1) Acute respiratory failure (2) Pulmonary edema (3) CAD (coronary artery disease) (4) DVT (deep venous thrombosis) (5) Diabetes mellitus (6) Dementia Assessment/Plan meds reviewed labs reviewed has UTI per Cardio DC clonidine Monitor lytes gastric support labs in am Subjective Date patient seen: Jul 01, 2018 Time patient seen: 12:00 ROS Limited/Unobtainable: Yes Constitutional: Reports: other - Seen for Dr bonilla Int Med. Patient poor historian Respiratory: Reports: SOB with excertion Allergies: Coded Allergies: TAB INHIBITORS (Verified Allergy, Unknown, 06/29/18) Objective Last 24 Hour Vital Signs Date Time Temp Pulse Resp B/P (MAP) Pulse Ox O2 Delivery O2 Flow Rate FiO2 07/01/18 09:37 104/50 07/01/18 09:37 80 104/50 07/01/18 09:00 104/50 07/01/18 08:00 Nasal Cannula 2.0 07/01/18 08:00 97.9 80 18 104/50 (68) 97 97.9 80 07/01/18 04:00 96.3 77 16 118/52 (74) 96 96.3 77 07/01/18 04:00 69 07/01/18 00:15 97.5 75 20 104/51 (68) 96 97.5 75 07/01/18 00:00 71 06/30/18 21:00 Nasal Cannula 2.0 06/30/18 20:00 75 06/30/18 19:56 97.7 79 15 101/51 (68) 93 97.7 79 06/30/18 16:00 71 06/30/18 15:26 97.9 81 16 132/65 (87) 96 97.9 Intake and Output 06/30/18 07/01/18 19:00 07:00 Intake Total 120 ml Output Total 1900 ml 1500 ml Balance -1780 ml -1500 ml Intake Oral 120 ml Output Urine Total 1900 ml 1500 ml # Voids 3 # Bowel Movements 6 1 Laboratory Tests 07/01/18 07:16: White Blood Count 11.2H, Red Blood Count 4.54, Hemoglobin 13.6, Hematocrit 41.3 , Mean Corpuscular Volume 91, Mean Corpuscular Hemoglobin 30.0, Mean Corpuscular Hemoglobin Concent 33.0, Red Cell Distribution Width 12.4, Platelet Count 277, Mean Platelet Volume 6.0L, Neutrophils (%) (Auto) 65.0, Lymphocytes ( %) (Auto) 25.7, Monocytes (%) (Auto) 7.2, Eosinophils (%) (Auto) 1.1, Basophils (%) (Auto) 1.0, Sodium Level 139, Potassium Level 3.5, Chloride Level 99, Carbon Dioxide Level 36H, Anion Gap 4L, Blood Urea Nitrogen 20H, Creatinine 0.8 , Estimat Glomerular Filtration Rate , Glucose Level 98, Calcium Level 9.9, Total Bilirubin 0.5, Aspartate Amino Transf (AST/SGOT) 14L, Alanine Aminotransferase (ALT/SGPT) 24, Alkaline Phosphatase 66, Troponin I 0.003, Pro-B -Type Natriuretic Peptide 1696H, Total Protein 6.5, Albumin 3.1L, Globulin 3.4, Albumin/Globulin Ratio 0.9L 07/01/18 12:25: Troponin I [Pending] Height (Feet): 5 Height (Inches): 10.00 Weight (Pounds): 194 Albino Retana MD Jul 01, 2018 12:54
--- NOTE | 2018-07-01 15:45 | General Progress Note ---
Assessment/Plan Assessment/Plan mdd anxiety effexor 75mg qam provided ro/st Subjective Date patient seen: Jul 01, 2018 Neurologic/Psychiatric: Reports: anxiety, depressed, emotional problems Allergies: Coded Allergies: TAB INHIBITORS (Verified Allergy, Unknown, 06/29/18) Objective Last 24 Hour Vital Signs Date Time Temp Pulse Resp B/P (MAP) Pulse Ox O2 Delivery O2 Flow Rate FiO2 07/01/18 12:00 98.6 77 22 116/54 (74) 97 98.6 77 07/01/18 11:40 70 07/01/18 09:37 104/50 07/01/18 09:37 80 104/50 07/01/18 09:00 104/50 07/01/18 08:00 Nasal Cannula 2.0 07/01/18 08:00 97.9 80 18 104/50 (68) 97 97.9 80 07/01/18 07:18 82 07/01/18 04:00 96.3 77 16 118/52 (74) 96 96.3 77 07/01/18 04:00 69 07/01/18 00:15 97.5 75 20 104/51 (68) 96 97.5 75 07/01/18 00:00 71 06/30/18 21:00 Nasal Cannula 2.0 06/30/18 20:00 75 06/30/18 19:56 97.7 79 15 101/51 (68) 93 97.7 79 06/30/18 16:00 71 Intake and Output 06/30/18 07/01/18 19:00 07:00 Intake Total 120 ml Output Total 1900 ml 1500 ml Balance -1780 ml -1500 ml Intake Oral 120 ml Output Urine Total 1900 ml 1500 ml # Voids 3 # Bowel Movements 6 1 Laboratory Tests 07/01/18 07:16: White Blood Count 11.2H, Red Blood Count 4.54, Hemoglobin 13.6, Hematocrit 41.3 , Mean Corpuscular Volume 91, Mean Corpuscular Hemoglobin 30.0, Mean Corpuscular Hemoglobin Concent 33.0, Red Cell Distribution Width 12.4, Platelet Count 277, Mean Platelet Volume 6.0L, Neutrophils (%) (Auto) 65.0, Lymphocytes ( %) (Auto) 25.7, Monocytes (%) (Auto) 7.2, Eosinophils (%) (Auto) 1.1, Basophils (%) (Auto) 1.0, Sodium Level 139, Potassium Level 3.5, Chloride Level 99, Carbon Dioxide Level 36H, Anion Gap 4L, Blood Urea Nitrogen 20H, Creatinine 0.8 , Estimat Glomerular Filtration Rate , Glucose Level 98, Calcium Level 9.9, Total Bilirubin 0.5, Aspartate Amino Transf (AST/SGOT) 14L, Alanine Aminotransferase (ALT/SGPT) 24, Alkaline Phosphatase 66, Troponin I 0.003, Pro-B -Type Natriuretic Peptide 1696H, Total Protein 6.5, Albumin 3.1L, Globulin 3.4, Albumin/Globulin Ratio 0.9L 07/01/18 12:25: Troponin I 0.007, C-Reactive Protein, Quantitative 0.7 Height (Feet): 5 Height (Inches): 10.00 Weight (Pounds): 194 Milton Schultz MD Jul 01, 2018 15:45
[2018-07-01 16:00] VITALS: BP 112/61
--- NOTE | 2018-07-01 16:13 | Pulmonology Progress Note ---
Assessment/Plan Problems: (1) Acute respiratory failure (2) Pulmonary edema (3) CAD (coronary artery disease) (4) DVT (deep venous thrombosis) (5) Diabetes mellitus (6) Dementia Assessment/Plan improving BNP and cxr improving less sob continue diuretics sliding scale dvt prophylaxis Subjective ROS Limited/Unobtainable: No Constitutional: Reports: no symptoms HEENT: Repors: no symptoms Respiratory: Reports: no symptoms Allergies: Coded Allergies: TAB INHIBITORS (Verified Allergy, Unknown, 06/29/18) Objective Last 24 Hour Vital Signs Date Time Temp Pulse Resp B/P (MAP) Pulse Ox O2 Delivery O2 Flow Rate FiO2 07/01/18 12:00 98.6 77 22 116/54 (74) 97 98.6 77 07/01/18 11:40 70 07/01/18 09:37 104/50 07/01/18 09:37 80 104/50 07/01/18 09:00 104/50 07/01/18 08:00 Nasal Cannula 2.0 07/01/18 08:00 97.9 80 18 104/50 (68) 97 97.9 80 07/01/18 07:18 82 07/01/18 04:00 96.3 77 16 118/52 (74) 96 96.3 77 07/01/18 04:00 69 07/01/18 00:15 97.5 75 20 104/51 (68) 96 97.5 75 07/01/18 00:00 71 06/30/18 21:00 Nasal Cannula 2.0 06/30/18 20:00 75 06/30/18 19:56 97.7 79 15 101/51 (68) 93 97.7 79 Intake and Output 06/30/18 07/01/18 19:00 07:00 Intake Total 120 ml Output Total 1900 ml 1500 ml Balance -1780 ml -1500 ml Intake Oral 120 ml Output Urine Total 1900 ml 1500 ml # Voids 3 # Bowel Movements 6 1 General Appearance: WD/WN HEENT: normocephalic, atraumatic Respiratory/Chest: chest wall non-tender, lungs clear Breasts: no masses Cardiovascular: normal peripheral pulses Abdomen: normal bowel sounds, soft, non tender Extremities: no cyanosis, no clubbing Skin: no rash 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 Complete 06/29/18 11:20 Urine,Clean Catch Urine Culture - Preliminary YEAST Resulted 06/29/18 11:30 Rectum VRE Culture - Final Enterococcus Faecalis - Vre Complete 06/29/18 11:30 Rectum - Final NO CARBAPENEM-RESISTANT ENTEROBACTERI... Complete Laboratory Tests 07/01/18 07:16: White Blood Count 11.2H, Red Blood Count 4.54, Hemoglobin 13.6, Hematocrit 41.3 , Mean Corpuscular Volume 91, Mean Corpuscular Hemoglobin 30.0, Mean Corpuscular Hemoglobin Concent 33.0, Red Cell Distribution Width 12.4, Platelet Count 277, Mean Platelet Volume 6.0L, Neutrophils (%) (Auto) 65.0, Lymphocytes ( %) (Auto) 25.7, Monocytes (%) (Auto) 7.2, Eosinophils (%) (Auto) 1.1, Basophils (%) (Auto) 1.0, Sodium Level 139, Potassium Level 3.5, Chloride Level 99, Carbon Dioxide Level 36H, Anion Gap 4L, Blood Urea Nitrogen 20H, Creatinine 0.8 , Estimat Glomerular Filtration Rate , Glucose Level 98, Calcium Level 9.9, Total Bilirubin 0.5, Aspartate Amino Transf (AST/SGOT) 14L, Alanine Aminotransferase (ALT/SGPT) 24, Alkaline Phosphatase 66, Troponin I 0.003, Pro-B -Type Natriuretic Peptide 1696H, Total Protein 6.5, Albumin 3.1L, Globulin 3.4, Albumin/Globulin Ratio 0.9L 07/01/18 12:25: Troponin I 0.007, C-Reactive Protein, Quantitative 0.7 Current Medications Medications (Trade) Dose Ordered Sig/Young Route PRN Reason Start Time Stop Time Status Last Admin Dose Admin Acetaminophen (Tylenol) 650 mg Q4H PRN ORAL T>100.5 06/29/18 12:30 07/29/18 12:29 Albuterol/ Ipratropium (Albuterol/ Ipratropium) 3 ml Q4H PRN HHN Shortness of Breath 06/29/18 12:30 07/04/18 12:29 Dextrose (Dextrose 50%) 25 ml PRN IV Hypoglycemia 06/29/18 12:45 07/29/18 12:44 Dextrose (Dextrose 50%) 50 ml PRN IV hypoglycemia 06/29/18 12:45 07/29/18 12:44 Famotidine (Pepcid) 20 mg BID ORAL 07/01/18 13:04 07/31/18 13:03 07/01/18 13:27 Furosemide (Lasix) 40 mg EVERY 8 HOURS IV 06/29/18 14:00 07/29/18 13:59 07/01/18 13:27 Insulin Aspart (NovoLOG) BEFORE MEALS AND HS SUBQ 06/29/18 16:30 07/29/18 16:29 07/01/18 11:59 Losartan Potassium (Cozaar) 25 mg DAILY ORAL 06/30/18 09:00 07/30/18 08:59 07/01/18 09:37 Metoprolol Succinate (Toprol XL) 25 mg DAILY ORAL 06/30/18 09:00 07/30/18 08:59 07/01/18 09:37 Ondansetron HCl (Zofran) 4 mg Q6H PRN IVP Nausea & Vomiting 06/29/18 12:30 07/29/18 12:29 Oxcarbazepine (Trileptal) 150 mg QHS ORAL 06/29/18 21:00 07/29/18 20:59 06/30/18 21:16 Polyethylene Glycol (Miralax) 17 gm DAILYPRN PRN ORAL Constipation 06/29/18 12:30 07/29/18 12:29 Rivaroxaban (Xarelto) 20 mg DAILY ORAL 06/30/18 09:00 07/30/18 08:59 07/01/18 09:38 Temazepam (Restoril) 15 mg HSPRN PRN ORAL Insomnia 06/29/18 21:00 07/06/18 20:59 Venlafaxine HCl (Effexor-XR) 75 mg DAILY ORAL 06/30/18 13:00 07/30/18 12:59 07/01/18 09:37 Mariah Locke MD Jul 01, 2018 16:13
[2018-07-01 20:00] VITALS: BP 104/58
[2018-07-01] MEDS: OXcarbazepine 150mg tab ORAL SCH (21:31)
--- NOTE | 2018-07-01 23:37 | Diagnostic Imaging Report ---
APPROVED REPORT CPT Code: 13565 Present Symptoms Comments: BILATERAL LEGS PAIN. BILATERAL: Imaging reveals a patent deep venous system bilaterally. There is no evidence of thrombus within the femoral, popliteal or tibial segments. The greater saphenous veins are also within normal limits. Doppler indicates normal spontaneous flow within these segments.
[2018-07-02] VITALS: BP 100/55
[2018-07-02 04:00] VITALS: BP 107/60
[2018-07-02 05:22] LABS: BASOPHILS % (AUTO) 1.4 % (0.0-2.0); EOSINOPHILS % (AUTO) 2.4 % (0.0-3.0); HEMATOCRIT 41.8 % (37.0-47.0); HEMOGLOBIN 13.9 G/DL (12.0-16.0); LYMPHOCYTES % (AUTO) 26.4 % (20.0-45.0); MEAN CORPUSCULAR VOLUME 90 FL (80-99); MONOCYTES % (AUTO) 9.4 % (1.0-10.0); NEUTROPHILS % (AUTO) 60.3 % (45.0-75.0); PLATELET COUNT 271 K/UL (150-450); RED BLOOD COUNT 4.63 M/UL (4.20-5.40); RED CELL DISTRIBUTION WIDTH 12.3 % (11.6-14.8); WHITE BLOOD COUNT 9.5 K/UL (4.8-10.8)
[2018-07-02 05:52] LABS: ALANINE AMINOTRANSFERASE 17 U/L (12-78); ALBUMIN 2.9 G/DL (3.4-5.0); ALBUMIN/GLOBULIN RATIO 0.9 (1.0-2.7); ALKALINE PHOSPHATASE 66 U/L (46-116); ANION GAP 3 mmol/L (5-15); ASPARTATE AMINO TRANSFERASE 11 U/L (15-37); BILIRUBIN,TOTAL 0.5 MG/DL (0.2-1.0); BLOOD UREA NITROGEN 21 mg/dL (7-18); CALCIUM 9.1 MG/DL (8.5-10.1); CARBON DIOXIDE 37 MMOL/L (21-32); CHLORIDE 100 MMOL/L (98-107); CREATININE 0.8 MG/DL (0.55-1.30); GAMMA GLUTAMYL TRANSPEPTIDASE 62 U/L (5-85); HDL CHOLESTEROL 51 MG/DL (40-60); POTASSIUM 3.6 MMOL/L (3.5-5.1); SODIUM 139 MMOL/L (136-145); TRIGLYCERIDES 79 MG/DL (30-150)
[2018-07-02] MEDS: NovoLOG Insulin Flexpen SUBQ SCH ×4 (06:22→21:00)
[2018-07-02 07:57] LABS: CHOLESTEROL 186 MG/DL (< 200)
[2018-07-02 08:00] VITALS: BP 112/55
[2018-07-02] MEDS: Xarelto 10mg tab ORAL SCH (08:56)
[2018-07-02] MEDS: Venlafaxine XR 75mg cap ORAL SCH (08:57)
[2018-07-02] MEDS: Metoprolol Succinate XL 25mg tab ORAL SCH (08:57)
[2018-07-02] MEDS: Losartan 25mg tab ORAL SCH (08:59)
--- NOTE | 2018-07-02 10:10 | Diagnostic Imaging Report ---
Indication: Dyspnea Technique: One view of the chest Comparison: 07/01/2018 Findings: The heart is enlarged. Bilateral pleural effusions persist, probably not significantly changed. Interstitial congestion appears to have decreased. Impression: Decreased interstitial congestion, over one day. Stable bilateral pleural effusions
--- NOTE | 2018-07-02 10:31 | Cardiology Progress Note ---
Assessment/Plan Status: stable Assessment/Plan Assessment: Shortness of breath Chest pain CHF systolic exacerbation Arrhythmias - atrial fibrillation Urinary tract infection Diabetes COPD Plan: Serial EKG/Troponin Echocardiogram reviewed -LVEF 40% global hypokinesis CXR reviewed with pulmonary edema - improving post diuresis on subsequent imaging Transition medications to PO Pulmonary toilet/duonebs Aspirin Statin Xarelto Continue blood pressure medications - controlled Ambulate Subjective Cardiovascular: Reports: no symptoms Respiratory: Reports: no symptoms Gastrointestinal/Abdominal: Reports: no symptoms Genitourinary: Reports: no symptoms Subjective No acute events vitals stable, CXR Interim slight improvement of previously demonstrated bilateral pleural effusions and interstitial congestion BP controlled, MG low today, will replace, no complaints Objective Last 24 Hour Vital Signs Date Time Temp Pulse Resp B/P (MAP) Pulse Ox O2 Delivery O2 Flow Rate FiO2 07/02/18 08:59 112/55 07/02/18 08:57 82 112/55 07/02/18 08:00 97.1 82 18 112/55 (74) 94 97.1 07/02/18 08:00 85 07/02/18 04:00 64 07/02/18 04:00 97.5 73 20 107/60 (76) 98 97.5 07/02/18 00:00 69 07/02/18 00:00 97.9 68 18 100/55 (70) 95 97.9 07/01/18 21:00 Nasal Cannula 2.0 07/01/18 20:00 69 07/01/18 20:00 97.7 80 18 104/58 (73) 94 97.7 07/01/18 16:00 71 07/01/18 16:00 98.6 73 18 112/61 (78) 97 98.6 73 07/01/18 12:00 98.6 77 22 116/54 (74) 97 98.6 77 07/01/18 11:40 70 General Appearance: no apparent distress, alert EENT: PERRL/EOMI, normal ENT inspection Neck: non-tender, normal alignment, supple Rhythm: NSR Cardiovascular: normal peripheral pulses, normal rate, regular rhythm Respiratory/Chest: chest wall non-tender, lungs clear Abdomen: normal bowel sounds, non tender Extremities: normal range of motion 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 Intake and Output 07/01/18 07/02/18 19:00 07:00 Intake Total 591 ml 120 ml Output Total 500 ml Balance 591 ml -380 ml Intake Oral 591 ml 120 ml Output Urine Total 500 ml # Voids 3 Laboratory Tests Test 07/01/18 12:25 07/02/18 05:00 Troponin I 0.007 ng/mL (0.000-0.056) 0.006 ng/mL (0.000-0.056) C-Reactive Protein, Quantitative 0.7 mg/dL (0.00-0.90) White Blood Count 9.5 K/UL (4.8-10.8) Red Blood Count 4.63 M/UL (4.20-5.40) Hemoglobin 13.9 G/DL (12.0-16.0) Hematocrit 41.8 % (37.0-47.0) Mean Corpuscular Volume 90 FL (80-99) Mean Corpuscular Hemoglobin 30.0 PG (27.0-31.0) Mean Corpuscular Hemoglobin Concent 33.3 G/DL (32.0-36.0) Red Cell Distribution Width 12.3 % (11.6-14.8) Platelet Count 271 K/UL (150-450) Mean Platelet Volume 6.2 FL (6.5-10.1) L Neutrophils (%) (Auto) 60.3 % (45.0-75.0) Lymphocytes (%) (Auto) 26.4 % (20.0-45.0) Monocytes (%) (Auto) 9.4 % (1.0-10.0) Eosinophils (%) (Auto) 2.4 % (0.0-3.0) Basophils (%) (Auto) 1.4 % (0.0-2.0) Sodium Level 139 MMOL/L (136-145) Potassium Level 3.6 MMOL/L (3.5-5.1) Chloride Level 100 MMOL/L (98-107) Carbon Dioxide Level 37 MMOL/L (21-32) H Anion Gap 3 mmol/L (5-15) L Blood Urea Nitrogen 21 mg/dL (7-18) H Creatinine 0.8 MG/DL (0.55-1.30) Estimat Glomerular Filtration Rate mL/min (>60) Glucose Level 112 MG/DL (74-106) H Hemoglobin A1c 7.6 % (4.3-6.0) H Uric Acid 7.8 MG/DL (2.6-7.2) H Calcium Level 9.1 MG/DL (8.5-10.1) Phosphorus Level 4.0 MG/DL (2.5-4.9) Magnesium Level 1.4 MG/DL (1.8-2.4) L Total Bilirubin 0.5 MG/DL (0.2-1.0) Gamma Glutamyl Transpeptidase 62 U/L (5-85) Aspartate Amino Transf (AST/SGOT) 11 U/L (15-37) L Alanine Aminotransferase (ALT/SGPT) 17 U/L (12-78) Alkaline Phosphatase 66 U/L (46-116) Pro-B-Type Natriuretic Peptide 2220 pg/mL (0-125) H Total Protein 6.3 G/DL (6.4-8.2) L Albumin 2.9 G/DL (3.4-5.0) L Globulin 3.4 g/dL Albumin/Globulin Ratio 0.9 (1.0-2.7) L Triglycerides Level 79 MG/DL (30-150) Cholesterol Level 186 MG/DL (< 200) LDL Cholesterol 120 mg/dL (<100) H HDL Cholesterol 51 MG/DL (40-60) Cholesterol/HDL Ratio 3.6 (3.3-4.4) Thyroid Stimulating Hormone (TSH) 0.795 uiU/mL (0.358-3.740) Microbiology Date/Time Source Procedure Growth Status 06/29/18 11:35 Blood Blood Culture - Preliminary NO GROWTH AFTER 48 HOURS Resulted 06/29/18 11:20 Blood Blood Culture - Preliminary NO GROWTH AFTER 48 HOURS Resulted 06/29/18 11:30 Nasal Nares MRSA Culture - Final NO METHICILLIN RESISTANT STAPH AUREUS... Complete 06/29/18 11:20 Urine,Clean Catch Urine Culture - Preliminary YEAST Resulted 06/29/18 11:30 Rectum VRE Culture - Final Enterococcus Faecalis - Vre Complete 06/29/18 11:30 Rectum - Final NO CARBAPENEM-RESISTANT ENTEROBACTERI... Complete Art Curtis M.D. Jul 02, 2018 10:31
[2018-07-02 12:00] VITALS: BP 123/56
--- NOTE | 2018-07-02 13:00 | Pulmonology Progress Note ---
Assessment/Plan Problems: (1) Acute respiratory failure (2) Pulmonary edema (3) CAD (coronary artery disease) (4) Pleural effusion (5) Diabetes mellitus (6) Dementia (7) DVT (deep venous thrombosis) Assessment/Plan improving BNP and cxr improving slowly US of chest to see if we can do thoracentesis less sob continue diuretics sliding scale dvt prophylaxis Subjective ROS Limited/Unobtainable: No Constitutional: Reports: no symptoms HEENT: Repors: no symptoms Respiratory: Reports: no symptoms Allergies: Coded Allergies: TAB INHIBITORS (Verified Allergy, Unknown, 06/29/18) Objective Last 24 Hour Vital Signs Date Time Temp Pulse Resp B/P (MAP) Pulse Ox O2 Delivery O2 Flow Rate FiO2 07/02/18 12:00 80 07/02/18 12:00 97.2 79 18 123/56 (78) 94 97.2 07/02/18 09:00 Nasal Cannula 2.0 07/02/18 08:59 112/55 07/02/18 08:57 82 112/55 07/02/18 08:00 97.1 82 18 112/55 (74) 94 97.1 07/02/18 08:00 85 07/02/18 04:00 64 07/02/18 04:00 97.5 73 20 107/60 (76) 98 97.5 07/02/18 00:00 69 07/02/18 00:00 97.9 68 18 100/55 (70) 95 97.9 07/01/18 21:00 Nasal Cannula 2.0 07/01/18 20:00 69 07/01/18 20:00 97.7 80 18 104/58 (73) 94 97.7 07/01/18 16:00 71 07/01/18 16:00 98.6 73 18 112/61 (78) 97 98.6 73 Intake and Output 07/01/18 07/02/18 19:00 07:00 Intake Total 591 ml 120 ml Output Total 500 ml Balance 591 ml -380 ml Intake Oral 591 ml 120 ml Output Urine Total 500 ml # Voids 3 General Appearance: WD/WN HEENT: normocephalic, atraumatic Respiratory/Chest: chest wall non-tender, decreased breath sounds, crackles/ rales Cardiovascular: normal peripheral pulses, normal rate Abdomen: normal bowel sounds, soft, non tender Extremities: no cyanosis 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 Laboratory Tests 07/02/18 05:00: White Blood Count 9.5, Red Blood Count 4.63, Hemoglobin 13.9, Hematocrit 41.8, Mean Corpuscular Volume 90, Mean Corpuscular Hemoglobin 30.0, Mean Corpuscular Hemoglobin Concent 33.3, Red Cell Distribution Width 12.3, Platelet Count 271, Mean Platelet Volume 6.2L, Neutrophils (%) (Auto) 60.3, Lymphocytes (%) (Auto) 26.4, Monocytes (%) (Auto) 9.4, Eosinophils (%) (Auto) 2.4, Basophils (%) (Auto ) 1.4, Sodium Level 139, Potassium Level 3.6, Chloride Level 100, Carbon Dioxide Level 37H, Anion Gap 3L, Blood Urea Nitrogen 21H, Creatinine 0.8, Estimat Glomerular Filtration Rate , Glucose Level 112H, Hemoglobin A1c 7.6H, Uric Acid 7.8H, Calcium Level 9.1, Phosphorus Level 4.0, Magnesium Level 1.4L, Total Bilirubin 0.5, Gamma Glutamyl Transpeptidase 62, Aspartate Amino Transf ( AST/SGOT) 11L, Alanine Aminotransferase (ALT/SGPT) 17, Alkaline Phosphatase 66, Troponin I 0.006, Pro-B-Type Natriuretic Peptide 2220H, Total Protein 6.3L, Albumin 2.9L, Globulin 3.4, Albumin/Globulin Ratio 0.9L, Triglycerides Level 79 , Cholesterol Level 186, LDL Cholesterol 120H, HDL Cholesterol 51, Cholesterol/ HDL Ratio 3.6, Thyroid Stimulating Hormone (TSH) 0.795 Current Medications Medications (Trade) Dose Ordered Sig/Young Route PRN Reason Start Time Stop Time Status Last Admin Dose Admin Acetaminophen (Tylenol) 650 mg Q4H PRN ORAL T>100.5 06/29/18 12:30 07/29/18 12:29 Albuterol/ Ipratropium (Albuterol/ Ipratropium) 3 ml Q4H PRN HHN Shortness of Breath 06/29/18 12:30 07/04/18 12:29 Dextrose (Dextrose 50%) 25 ml PRN IV Hypoglycemia 06/29/18 12:45 07/29/18 12:44 Dextrose (Dextrose 50%) 50 ml PRN IV hypoglycemia 06/29/18 12:45 07/29/18 12:44 Famotidine (Pepcid) 20 mg BID ORAL 07/01/18 13:04 07/31/18 13:03 07/02/18 08:56 Furosemide (Lasix) 20 mg EVERY 12 HOURS ORAL 07/02/18 21:00 08/01/18 20:59 Insulin Aspart (NovoLOG) BEFORE MEALS AND HS SUBQ 06/29/18 16:30 07/29/18 16:29 07/02/18 11:37 Losartan Potassium (Cozaar) 25 mg DAILY ORAL 06/30/18 09:00 07/30/18 08:59 07/01/18 09:37 Magnesium Chloride (Slow-Mag) 1 tab TWICE A DAY ORAL 07/02/18 18:00 08/01/18 17:59 Magnesium Sulfate 100 ml @ 100 mls/hr Q1H IVPB 07/02/18 11:30 07/02/18 13:29 07/02/18 12:53 Metoprolol Succinate (Toprol XL) 25 mg DAILY ORAL 06/30/18 09:00 07/30/18 08:59 07/02/18 08:57 Ondansetron HCl (Zofran) 4 mg Q6H PRN IVP Nausea & Vomiting 06/29/18 12:30 07/29/18 12:29 Oxcarbazepine (Trileptal) 150 mg QHS ORAL 06/29/18 21:00 07/29/18 20:59 07/01/18 21:31 Polyethylene Glycol (Miralax) 17 gm DAILYPRN PRN ORAL Constipation 06/29/18 12:30 07/29/18 12:29 Rivaroxaban (Xarelto) 20 mg DAILY ORAL 06/30/18 09:00 07/30/18 08:59 07/02/18 08:56 Temazepam (Restoril) 15 mg HSPRN PRN ORAL Insomnia 06/29/18 21:00 07/06/18 20:59 Venlafaxine HCl (Effexor-XR) 75 mg DAILY ORAL 06/30/18 13:00 07/30/18 12:59 07/02/18 08:57 Mariah Locke MD Jul 02, 2018 13:00
[2018-07-02 13:55] LABS: INR 1.2 (0.9-1.1)
[2018-07-02 16:00] VITALS: BP 119/59
[2018-07-02] MEDS: Magnesium Chloride w/Calcium Tab ORAL SCH (17:38)
[2018-07-02 20:00] VITALS: BP 120/61
--- NOTE | 2018-07-02 20:04 | General Progress Note ---
Assessment/Plan Assessment/Plan mdd anxiety effexor 75mg qam provided ro/st Subjective Date patient seen: Jul 02, 2018 Neurologic/Psychiatric: Reports: anxiety, depressed Allergies: Coded Allergies: TAB INHIBITORS (Verified Allergy, Unknown, 06/29/18) Objective Last 24 Hour Vital Signs Date Time Temp Pulse Resp B/P (MAP) Pulse Ox O2 Delivery O2 Flow Rate FiO2 07/02/18 16:00 98.7 83 18 119/59 (79) 95 98.7 07/02/18 16:00 85 07/02/18 12:00 80 07/02/18 12:00 97.2 79 18 123/56 (78) 94 97.2 07/02/18 09:00 Nasal Cannula 2.0 07/02/18 08:59 112/55 07/02/18 08:57 82 112/55 07/02/18 08:00 97.1 82 18 112/55 (74) 94 97.1 07/02/18 08:00 85 07/02/18 04:00 64 07/02/18 04:00 97.5 73 20 107/60 (76) 98 97.5 07/02/18 00:00 69 07/02/18 00:00 97.9 68 18 100/55 (70) 95 97.9 07/01/18 21:00 Nasal Cannula 2.0 Intake and Output 07/01/18 07/02/18 19:00 07:00 Intake Total 591 ml 120 ml Output Total 500 ml Balance 591 ml -380 ml Intake Oral 591 ml 120 ml Output Urine Total 500 ml # Voids 3 Laboratory Tests 07/02/18 05:00: White Blood Count 9.5, Red Blood Count 4.63, Hemoglobin 13.9, Hematocrit 41.8, Mean Corpuscular Volume 90, Mean Corpuscular Hemoglobin 30.0, Mean Corpuscular Hemoglobin Concent 33.3, Red Cell Distribution Width 12.3, Platelet Count 271, Mean Platelet Volume 6.2L, Neutrophils (%) (Auto) 60.3, Lymphocytes (%) (Auto) 26.4, Monocytes (%) (Auto) 9.4, Eosinophils (%) (Auto) 2.4, Basophils (%) (Auto ) 1.4, Sodium Level 139, Potassium Level 3.6, Chloride Level 100, Carbon Dioxide Level 37H, Anion Gap 3L, Blood Urea Nitrogen 21H, Creatinine 0.8, Estimat Glomerular Filtration Rate , Glucose Level 112H, Hemoglobin A1c 7.6H, Uric Acid 7.8H, Calcium Level 9.1, Phosphorus Level 4.0, Magnesium Level 1.4L, Total Bilirubin 0.5, Gamma Glutamyl Transpeptidase 62, Aspartate Amino Transf ( AST/SGOT) 11L, Alanine Aminotransferase (ALT/SGPT) 17, Alkaline Phosphatase 66, Troponin I 0.006, Pro-B-Type Natriuretic Peptide 2220H, Total Protein 6.3L, Albumin 2.9L, Globulin 3.4, Albumin/Globulin Ratio 0.9L, Triglycerides Level 79 , Cholesterol Level 186, LDL Cholesterol 120H, HDL Cholesterol 51, Cholesterol/ HDL Ratio 3.6, Thyroid Stimulating Hormone (TSH) 0.795 07/02/18 13:20: Prothrombin Time 12.1H, Prothromb Time International Ratio 1.2H, Activated Partial Thromboplast Time 35H Height (Feet): 5 Height (Inches): 10.00 Weight (Pounds): 192 Milton Schultz MD Jul 02, 2018 20:04
[2018-07-02] MEDS: OXcarbazepine 150mg tab ORAL SCH (21:25)
[2018-07-03] VITALS: BP 123/64
[2018-07-03 04:00] VITALS: BP 122/54
[2018-07-03] MEDS: NovoLOG Insulin Flexpen SUBQ SCH ×3 (05:46→17:23)
[2018-07-03 06:56] LABS: BASOPHILS % (AUTO) 1.1 % (0.0-2.0); EOSINOPHILS % (AUTO) 2.9 % (0.0-3.0); HEMATOCRIT 41.8 % (37.0-47.0); HEMOGLOBIN 13.6 G/DL (12.0-16.0); LYMPHOCYTES % (AUTO) 21.2 % (20.0-45.0); MEAN CORPUSCULAR VOLUME 91 FL (80-99); MONOCYTES % (AUTO) 7.7 % (1.0-10.0); NEUTROPHILS % (AUTO) 67.1 % (45.0-75.0); PLATELET COUNT 292 K/UL (150-450); RED BLOOD COUNT 4.57 M/UL (4.20-5.40); RED CELL DISTRIBUTION WIDTH 12.3 % (11.6-14.8); WHITE BLOOD COUNT 9.3 K/UL (4.8-10.8)
[2018-07-03 07:28] LABS: ALANINE AMINOTRANSFERASE 20 U/L (12-78); ALBUMIN 3.1 G/DL (3.4-5.0); ALBUMIN/GLOBULIN RATIO 0.9 (1.0-2.7); ALKALINE PHOSPHATASE 72 U/L (46-116); ANION GAP 4 mmol/L (5-15); ASPARTATE AMINO TRANSFERASE 13 U/L (15-37); BILIRUBIN,TOTAL 0.6 MG/DL (0.2-1.0); BLOOD UREA NITROGEN 21 mg/dL (7-18); CALCIUM 10.2 MG/DL (8.5-10.1); CARBON DIOXIDE 35 MMOL/L (21-32); CHLORIDE 99 MMOL/L (98-107); CREATININE 0.9 MG/DL (0.55-1.30); POTASSIUM 3.4 MMOL/L (3.5-5.1); SODIUM 138 MMOL/L (136-145)
[2018-07-03 08:00] VITALS: BP 109/64
[2018-07-03] MEDS: Metoprolol Succinate XL 25mg tab ORAL SCH (09:00)
[2018-07-03] MEDS: Xarelto 10mg tab ORAL SCH (09:00)
[2018-07-03] MEDS: Losartan 25mg tab ORAL SCH (09:00)
[2018-07-03] MEDS: Venlafaxine XR 75mg cap ORAL SCH (09:43)
[2018-07-03] MEDS: Magnesium Chloride w/Calcium Tab ORAL SCH ×2 (09:43→18:30)
[2018-07-03] MEDS ORDERED: Lidocaine 1% Plain 30 ml INJ SCH (11:00)
--- NOTE | 2018-07-03 11:14 | Pre-Procedure Note/Attestation ---
Pre-Procedure Note/Attestation Complete Prior to Procedure Planned Procedure: not applicable Procedure Narrative: US guided thoracentesis Indications for Procedure Pre-Operative Diagnosis: pleural effusion Attestation I attest that I discussed the nature of the procedure; its benefits; risks and complications; and alternatives (and the risks and benefits of such alternatives ), prior to the procedure, with the patient (or the patient's legal customer contact representative). I attest that, if there was a reasonable possibility of needing a blood transfusion, the patient (or the patient's legal customer contact representative) was given the [facility] standardized written summary, pursuant to the [place] Blood Safety Act ([place] Health and Safety Code # 1645, as amended). I attest that I re-evaluated the patient just prior to the surgery and that there has been no change in the patient's H&P, except as documented below: Discussed by phone with Pt.'s daughter Maria Esther at 1030 Dagoberto Wen MD Jul 03, 2018 11:14
[2018-07-03 12:00] VITALS: BP 121/59
--- NOTE | 2018-07-03 13:02 | Brief Operative Note ---
Immediate Post Operative Note Operative Note Pre-op Diagnosis: pleural effusion Procedure: thoracentesis Post-op Diagnosis: same Findings: consistent w/pre-op dx studies Surgeon: Max WEN Specimen: yes - 400 ml clear yellow fluid. Specimen sent to lab Complications: none Condition: stable Fluids: none Implant(s) used?: No Dagoberto Wen MD Jul 03, 2018 13:02
--- NOTE | 2018-07-03 13:07 | Diagnostic Imaging Report ---
Indications: Pleural effusion Technique: Ultrasound used to localize optimal puncture site. Sterile prepping and draping chest. Local anesthesia with 1% lidocaine. Under real-time ultrasound guidance, puncture pleural space using thoracentesis needle. Stylet removed. Catheter placed to vacuum bottle suction. Total 400 milliliters of clear yellow fluid aspirated. Patient tolerated procedure well, without immediate complication. Findings: Followup sonography demonstrates complete resolution of pleural fluid. Impression: Successful ultrasound-guided thoracentesis, yielding 400 milliliters of fluid
--- NOTE | 2018-07-03 13:09 | Diagnostic Imaging Report ---
Indication: Postthoracentesis Technique: One view of the chest Comparison: 07/02/2018 Findings: Interim resolution of previously demonstrated right-sided pleural effusion. Right lung and pleural space are now clear. No pneumothorax. Left basilar pleural fluid and atelectatic changes are again demonstrated the heart is borderline enlarged. Impression: Resolved right pleural effusion, post thoracentesis. No radiographically evident complication Stable left pleural effusion and basilar atelectatic change
[2018-07-03] MEDS ORDERED: FUROSEMIDE20 M1 ORAL (13:26)
--- NOTE | 2018-07-03 13:28 | Pulmonology Progress Note ---
Assessment/Plan Problems: (1) Acute respiratory failure (2) Pulmonary edema (3) CAD (coronary artery disease) (4) Pleural effusion (5) Diabetes mellitus (6) Dementia (7) DVT (deep venous thrombosis) Assessment/Plan thoracentesis done, 400 cc remvoed improving BNP and cxr improving slowly US of chest to see if we can do thoracentesis less sob continue diuretics sliding scale dvt prophylaxis dc to [facility] Subjective ROS Limited/Unobtainable: No Constitutional: Reports: no symptoms HEENT: Repors: no symptoms Respiratory: Reports: no symptoms Allergies: Coded Allergies: TAB INHIBITORS (Verified Allergy, Unknown, 06/29/18) Objective Last 24 Hour Vital Signs Date Time Temp Pulse Resp B/P (MAP) Pulse Ox O2 Delivery O2 Flow Rate FiO2 07/03/18 12:00 97.7 79 18 121/59 (79) 97 97.7 07/03/18 12:00 79 07/03/18 09:00 Nasal Cannula 2.0 07/03/18 09:00 109/64 07/03/18 09:00 81 109/64 07/03/18 08:00 81 07/03/18 08:00 98.1 80 18 109/64 (79) 96 98.1 07/03/18 04:00 98.5 81 21 122/54 (76) 93 98.5 07/03/18 04:00 85 07/03/18 00:00 79 07/03/18 00:00 98.7 80 20 123/64 (83) 93 98.7 07/02/18 21:00 Nasal Cannula 2.0 07/02/18 20:00 99.3 78 20 120/61 (80) 95 99.3 07/02/18 20:00 70 07/02/18 16:00 98.7 83 18 119/59 (79) 95 98.7 07/02/18 16:00 85 Intake and Output 07/02/18 07/03/18 19:00 07:00 Intake Total 354 ml 100 ml Output Total 450 ml 800 ml Balance -96 ml -700 ml Intake Oral 354 ml 100 ml Output Urine Total 450 ml 800 ml General Appearance: WD/WN HEENT: normocephalic, atraumatic Respiratory/Chest: chest wall non-tender, lungs clear Cardiovascular: normal peripheral pulses Abdomen: normal bowel sounds, soft, non tender Genitourinary: normal external genitalia Skin: no rash, no ulcers 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 Lymphatic: no groin adenopathy Laboratory Tests 07/03/18 05:35: White Blood Count 9.3, Red Blood Count 4.57, Hemoglobin 13.6, Hematocrit 41.8, Mean Corpuscular Volume 91, Mean Corpuscular Hemoglobin 29.7, Mean Corpuscular Hemoglobin Concent 32.4, Red Cell Distribution Width 12.3, Platelet Count 292, Mean Platelet Volume 6.8, Neutrophils (%) (Auto) 67.1, Lymphocytes (%) (Auto) 21.2, Monocytes (%) (Auto) 7.7, Eosinophils (%) (Auto) 2.9, Basophils (%) (Auto ) 1.1, Sodium Level 138, Potassium Level 3.4L, Chloride Level 99, Carbon Dioxide Level 35H, Anion Gap 4L, Blood Urea Nitrogen 21H, Creatinine 0.9, Estimat Glomerular Filtration Rate , Glucose Level 227#H, Calcium Level 10.2H, Total Bilirubin 0.6, Aspartate Amino Transf (AST/SGOT) 13L, Alanine Aminotransferase (ALT/SGPT) 20, Alkaline Phosphatase 72, Pro-B-Type Natriuretic Peptide 2785H, Total Protein 6.6, Albumin 3.1L, Globulin 3.5, Albumin/Globulin Ratio 0.9L Current Medications Medications (Trade) Dose Ordered Sig/Young Route PRN Reason Start Time Stop Time Status Last Admin Dose Admin Acetaminophen (Tylenol) 650 mg Q4H PRN ORAL T>100.5 06/29/18 12:30 07/29/18 12:29 Albuterol/ Ipratropium (Albuterol/ Ipratropium) 3 ml Q4H PRN HHN Shortness of Breath 06/29/18 12:30 07/04/18 12:29 Dextrose (Dextrose 50%) 25 ml PRN IV Hypoglycemia 06/29/18 12:45 07/29/18 12:44 Dextrose (Dextrose 50%) 50 ml PRN IV hypoglycemia 06/29/18 12:45 07/29/18 12:44 Famotidine (Pepcid) 20 mg BID ORAL 07/01/18 13:04 07/31/18 13:03 07/03/18 09:43 Furosemide (Lasix) 20 mg EVERY 12 HOURS ORAL 07/02/18 21:00 08/01/18 20:59 07/03/18 09:43 Insulin Aspart (NovoLOG) BEFORE MEALS AND HS SUBQ 06/29/18 16:30 07/29/18 16:29 07/03/18 12:45 Lidocaine HCl (Xylocaine 1% 30ml) 30 ml ONCE INJ 07/03/18 11:00 07/03/18 18:00 Losartan Potassium (Cozaar) 25 mg DAILY ORAL 06/30/18 09:00 07/30/18 08:59 07/01/18 09:37 Magnesium Chloride (Slow-Mag) 1 tab TWICE A DAY ORAL 07/02/18 18:00 08/01/18 17:59 07/03/18 09:43 Metoprolol Succinate (Toprol XL) 25 mg DAILY ORAL 06/30/18 09:00 07/30/18 08:59 07/02/18 08:57 Ondansetron HCl (Zofran) 4 mg Q6H PRN IVP Nausea & Vomiting 06/29/18 12:30 07/29/18 12:29 Oxcarbazepine (Trileptal) 150 mg QHS ORAL 06/29/18 21:00 07/29/18 20:59 07/02/18 21:25 Polyethylene Glycol (Miralax) 17 gm DAILYPRN PRN ORAL Constipation 06/29/18 12:30 07/29/18 12:29 Rivaroxaban (Xarelto) 20 mg DAILY ORAL 06/30/18 09:00 07/30/18 08:59 07/02/18 08:56 Temazepam (Restoril) 15 mg HSPRN PRN ORAL Insomnia 06/29/18 21:00 07/06/18 20:59 Venlafaxine HCl (Effexor-XR) 75 mg DAILY ORAL 06/30/18 13:00 07/30/18 12:59 07/03/18 09:43 Mariah Locke MD Jul 03, 2018 13:28
[2018-07-03 16:00] VITALS: BP 125/66
--- NOTE | 2018-07-03 18:50 | Cardiology Progress Note ---
Assessment/Plan Status: stable Assessment/Plan Assessment: Shortness of breath Chest pain CHF systolic exacerbation Arrhythmias - atrial fibrillation Urinary tract infection Diabetes COPD Plan: Serial EKG/Troponin Echocardiogram reviewed -LVEF 40% global hypokinesis CXR reviewed with pulmonary edema - improving post diuresis on subsequent imaging Transition medications to PO Pulmonary toilet/duonebs Aspirin Statin Xarelto Continue blood pressure medications - controlled Ambulate Subjective Cardiovascular: Reports: no symptoms Respiratory: Reports: no symptoms Gastrointestinal/Abdominal: Reports: no symptoms Genitourinary: Reports: no symptoms Subjective No acute events vitals stable, CXR Interim slight improvement of previously demonstrated bilateral pleural effusions and interstitial congestion BP controlled, MG low today, will replace, no complaints Objective Last 24 Hour Vital Signs Date Time Temp Pulse Resp B/P (MAP) Pulse Ox O2 Delivery O2 Flow Rate FiO2 07/03/18 16:00 79 07/03/18 16:00 98.7 83 18 125/66 (85) 95 98.7 07/03/18 12:00 97.7 79 18 121/59 (79) 97 97.7 07/03/18 12:00 79 07/03/18 09:00 Nasal Cannula 2.0 07/03/18 09:00 109/64 07/03/18 09:00 81 109/64 07/03/18 08:00 81 07/03/18 08:00 98.1 80 18 109/64 (79) 96 98.1 07/03/18 04:00 98.5 81 21 122/54 (76) 93 98.5 07/03/18 04:00 85 07/03/18 00:00 79 07/03/18 00:00 98.7 80 20 123/64 (83) 93 98.7 07/02/18 21:00 Nasal Cannula 2.0 07/02/18 20:00 99.3 78 20 120/61 (80) 95 99.3 07/02/18 20:00 70 General Appearance: no apparent distress, alert EENT: PERRL/EOMI, normal ENT inspection Neck: non-tender, normal alignment, normal inspection, no JVD Rhythm: NSR Cardiovascular: normal peripheral pulses, normal rate, regular rhythm Respiratory/Chest: chest wall non-tender, lungs clear Abdomen: normal bowel sounds, non tender Extremities: normal range of motion, non-tender 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 normal Intake and Output 07/02/18 07/03/18 19:00 07:00 Intake Total 354 ml 100 ml Output Total 450 ml 800 ml Balance -96 ml -700 ml Intake Oral 354 ml 100 ml Output Urine Total 450 ml 800 ml Laboratory Tests Test 07/03/18 05:35 07/03/18 11:56 White Blood Count 9.3 K/UL (4.8-10.8) Red Blood Count 4.57 M/UL (4.20-5.40) Hemoglobin 13.6 G/DL (12.0-16.0) Hematocrit 41.8 % (37.0-47.0) Mean Corpuscular Volume 91 FL (80-99) Mean Corpuscular Hemoglobin 29.7 PG (27.0-31.0) Mean Corpuscular Hemoglobin Concent 32.4 G/DL (32.0-36.0) Red Cell Distribution Width 12.3 % (11.6-14.8) Platelet Count 292 K/UL (150-450) Mean Platelet Volume 6.8 FL (6.5-10.1) Neutrophils (%) (Auto) 67.1 % (45.0-75.0) Lymphocytes (%) (Auto) 21.2 % (20.0-45.0) Monocytes (%) (Auto) 7.7 % (1.0-10.0) Eosinophils (%) (Auto) 2.9 % (0.0-3.0) Basophils (%) (Auto) 1.1 % (0.0-2.0) Sodium Level 138 MMOL/L (136-145) Potassium Level 3.4 MMOL/L (3.5-5.1) L Chloride Level 99 MMOL/L (98-107) Carbon Dioxide Level 35 MMOL/L (21-32) H Anion Gap 4 mmol/L (5-15) L Blood Urea Nitrogen 21 mg/dL (7-18) H Creatinine 0.9 MG/DL (0.55-1.30) Estimat Glomerular Filtration Rate mL/min (>60) Glucose Level 227 MG/DL (74-106) #H Calcium Level 10.2 MG/DL (8.5-10.1) H Total Bilirubin 0.6 MG/DL (0.2-1.0) Aspartate Amino Transf (AST/SGOT) 13 U/L (15-37) L Alanine Aminotransferase (ALT/SGPT) 20 U/L (12-78) Alkaline Phosphatase 72 U/L (46-116) Pro-B-Type Natriuretic Peptide 2785 pg/mL (0-125) H Total Protein 6.6 G/DL (6.4-8.2) Albumin 3.1 G/DL (3.4-5.0) L Globulin 3.5 g/dL Albumin/Globulin Ratio 0.9 (1.0-2.7) L Body Fluid Source Thoracentesis Body Fluid Volume 4.5 mL Body Fluid Appearance Slightly cloudy Body Fluid RBC 326 /CUMM Body Fluid Total Nucleated Cells 153 /CUMM Body Fluid Polynuclear WBCs (%) 8 % Body Fluid Mononuclear WBCs (%) 82 % Body Fluid Mesothelial Cells (%) 10 % Body Fluid Glucose Pending Body Fluid Total Protein Pending Body Fluid Albumin Pending Art Curtis M.D. Jul 03, 2018 18:50
--- NOTE | 2018-07-06 08:29 | Discharge Summary ---
Discharge Summary Discharge Summary _ DATE OF ADMISSION: 06/29/2018 DATE OF DISCHARGE: 07/03/2018 REASON FOR ADMISSION: 77 years old female with past medical history significant for congestive heart failure, hypertension, hyperlipidemia, presented with shortness of breath, tachycardia , tachypnea and low oxygen saturation. No fever. Paramedics placed patient on supplemental oxygen. Chest x-ray revealed pulmonary edema and bilateral pleural effusion. EKG revealed normal sinus rhythm, no acute ischemic changes. Troponin negative. Pro BNP 2703. Leukocytosis with WBC 14. Stable hemoglobin and hematocrit. Stable electrolytes and renal parameters. Blood glucose 280. Urinalysis with evidence of pyuria ,few bacteria and many yeast. Patient admitted with diagnoses of acute respiratory failure, pulmonary edema, bilateral pleural effusion , diabetes mellitus, coronary artery disease, dementia CONSULTANTS: digital printer operator dr. Curtis tree feller Dr. Retana psychiatrist [facility] COU[facility]SE: Patient admitted to telemetry floor. Cardiology consult initially was requested. Supplemental oxygen provided as needed to keep pulse oximetry above 92%. Pulmonary toilet provided. Patient started on diuretic with close monitoring of cardiorenal parameters and volumes. Echocardiogram revealed ejection fraction of 40% . Venous duplex bilateral lower extremity revealed no evidence of on DVT. Lipid panel revealed elevated LDL of 120. Patient was continued on Aspirin and statin. Blood pressure was managed with calcium channel carmela and angiotensin receptor carmela. Clonidine was stopped. Patient demonstrated intermittent atrial fibrillation on telemetry with controlled rate. Anticoagulation with Xarelto was continued. Hemoglobin and hematocrit stable. Lasix initially was given intravenously and switched to oral route, to be continued at the halfway facility with close monitoring of cardiorenal parameters and volumes. Patient undergone thoracentesis of right pleural effusion on 07/02, yielding 400 ML of clear yellow fluid. Culture of pleural fluid was negative. Chest x-ray post thoracentesis demonstrated resolution of right pleural effusion and stable left pleural effusion. Blood culture were negative. Urine culture revealed Marylou. Initial leukocytosis resolved. Blood sugar was managed with sliding scale insulin. Hemoglobin A1c 7.6. Patient needs tighter anti-glycemic regimen as outpatient since hemoglobin A1c still not at goal. Creative Services Producer closely followed. Renal parameters and electrolytes were closely monitored. Electrolytes were replaced as needed, including magnesium. Nephrotoxins were avoided. Bowel regimen instituted. Supportive care provided. Psychiatry seen and evaluated patient , and diagnosed patient with major depressive disorder and anxiety disorder. Patient was on Effexor. Reality orientation and supportive therapy provided. Patient stabilize. No signs of respiratory distress ,pulse oximetry stable. Patient was ready for discharge to halfway facility for continuation of care FINAL DIAGNOSES: Acute respiratory failure ( due to CHF exacerbnation) Systolic CHF exacerbation Atrial fibrillation Pulmonary edema Bilateral pleural effusion Status post thoracentesis right pleural effusion Diabetes mellitus Hypertension COPD Coronary artery disease Dementia Major depressive disorder Anxiety DISCHARGE MEDICATIONS: See Medication Reconciliation list. DISCHARGE INSTRUCTIONS: Patient was discharged to the halfway facility. Follow up with medical doctor at the facility. I have been assigned to dictate discharge summary for this account. I was not involved in the patient's management. Kamryn Alcazar NP Jul 06, 2018 08:29
== END 2018-07-03 19:21 | DRG 291 ==
LOC: EDBD 11:01 → EMR 11:30 → 2E 12:10 → ENRESERV 12:14 → EDBEDREQ 12:24
PROC: 0W993ZZ Drainage of Right Pleural Cavity, Percutaneous Approach (ICD-10-PCS; principal; 2018-07-02)
DX: I11.0 Hypertensive heart disease with heart failure (principal); J96.00 Acute respiratory failure, unspecified whether with hypoxia or hypercapnia; N39.0 Urinary tract infection, site not specified; J91.8 Pleural effusion in other conditions classified elsewhere; B37.49 Other urogenital candidiasis; E78.5 Hyperlipidemia, unspecified; E11.9 Type 2 diabetes mellitus without complications; I25.10 Atherosclerotic heart disease of native coronary artery without angina pectoris; F03.90 Unspecified dementia, unspecified severity, without behavioral disturbance, psychotic disturbance, mood disturbance, and anxiety; I48.91 Unspecified atrial fibrillation; Z79.01 Long term (current) use of anticoagulants; I50.23 Acute on chronic systolic (congestive) heart failure; J44.9 Chronic obstructive pulmonary disease, unspecified; F32.9 Major depressive disorder, single episode, unspecified; F41.9 Anxiety disorder, unspecified; Z88.8 Allergy status to other drugs, medicaments and biological substances; Z86.718 Personal history of other venous thrombosis and embolism
CPT/HCPCS: 36415; 71045; 76942; 80048; 80053; 80061; 81003; 82550; 82553; 82962; 82977; 83036; 83605; 83735; 83880; 84100; 84443; 84484; 84550; 85025; 85610; 85730; 86140; 87040; 87070; 87081; 87086; 87205; 88104; 89051; 93005; 93306; 93970; 94640; 94664; J1815; J8499

== ENCOUNTER 2018-09-30 12:49 | Inpatient (IN) | payer MEDICARE, OTHER ==
[~2018-09-30] VITALS: Ht 162.6 cm; Wt 77.1 kg
[~2018-09-30 12:49] MED LIST: AMLODIPINE BESY10 MG ORAL; CATAPRES0.1 MG ORAL; CENTRUM COMPLE1 EAC1 PO; FUROSEMIDE20 M1 ORAL; METFORMIN HCL500 M1 ORAL; NAMENDA10 MG ORAL; PANTOPRAZOLE SO40 MG ORAL; TRILEPTAL600 MG PO; VENLAFAXINE HCL75 MG ORAL; VITAMIN B-1100 MG ORAL; XALATAN2.5 ML LEFT EYE; XARELTO10 MG ORAL
[2018-09-30 13:00] VITALS: BP 139/84
[2018-09-30] MEDS ORDERED: Sodium Chloride 500ML 500 ML IV ONE (13:04)
[2018-09-30] MEDS ORDERED: Albuterol ud Inhalation HHN ONE (13:15)
[2018-09-30] MEDS ORDERED: Solu-MEDROL 125mg Inj IVP ONE (13:15)
[2018-09-30] MEDS ORDERED: Ipratropium 0.02% Inh Soln 2.5ml UD HHN ONE (13:15)
[2018-09-30 13:30] LABS: BASOPHILS % (AUTO) 0.6 % (0.0-2.0); EOSINOPHILS % (AUTO) 0.2 % (0.0-3.0); HEMOGLOBIN 13.4 G/DL (12.0-16.0); LYMPHOCYTES % (AUTO) 10.1 % (20.0-45.0); MEAN CORPUSCULAR VOLUME 89 FL (80-99); MONOCYTES % (AUTO) 5.7 % (1.0-10.0); NEUTROPHILS % (AUTO) 83.4 % (45.0-75.0); PLATELET COUNT 224 K/UL (150-450); RED BLOOD COUNT 4.73 M/UL (4.20-5.40); RED CELL DISTRIBUTION WIDTH 13.1 % (11.6-14.8); WHITE BLOOD COUNT 8.9 K/UL (4.8-10.8)
[2018-09-30 13:33] LABS: ANION GAP 2 mmol/L (5-15); BLOOD UREA NITROGEN 13 mg/dL (7-18); CALCIUM 9.8 MG/DL (8.5-10.1); CARBON DIOXIDE 35 MMOL/L (21-32); CHLORIDE 103 MMOL/L (98-107); CREATININE 0.7 MG/DL (0.55-1.30); POTASSIUM 4.4 MMOL/L (3.5-5.1); SODIUM 140 MMOL/L (136-145)
[2018-09-30 13:33] LABS: BILIRUBIN, URINE NEGATIVE (NEGATIVE); GLUCOSE, URINE (UA) NEGATIVE (NEGATIVE); KETONES,URINE 2+ (NEGATIVE); LEUKOCYTE ESTERASE ,URINE 3+ (NEGATIVE); NITRITE,URINE POSITIVE (NEGATIVE); PH,URINE 5 (4.5-8.0); PROTEIN,URINE 3+ (NEGATIVE); UROBILINOGEN,URINE 4 MG/DL (0.0-1.0)
[2018-09-30 13:34] LABS: COLOR,URINE YELLOW
[2018-09-30 13:37] LABS: APPEARANCE,URINE SLIGHTLY CLOUDY
[2018-09-30 13:47] LABS: ALANINE AMINOTRANSFERASE 18 U/L (12-78); ALBUMIN 2.8 G/DL (3.4-5.0); ALBUMIN/GLOBULIN RATIO 0.7 (1.0-2.7); ALKALINE PHOSPHATASE 85 U/L (46-116); ASPARTATE AMINO TRANSFERASE 15 U/L (15-37); BILIRUBIN,TOTAL 0.8 MG/DL (0.2-1.0); CKMB 0.5 NG/ML (0.0-3.6); CREATINE KINASE 19 U/L (26-308)
[2018-09-30] MEDS ORDERED: ZINC SULFATE220 M1 ORAL (14:21)
[2018-09-30] MEDS ORDERED: ASPIR 8181 MG ORAL (14:21)
[2018-09-30] MEDS ORDERED: IPRATROPIU0.2 MG/1 M HHN (14:21)
[2018-09-30] MEDS ORDERED: BISACODYL5 MG RECTAL (14:21)
[2018-09-30] MEDS ORDERED: MIRALAX17 G2 ORAL (14:21)
[2018-09-30] MEDS ORDERED: DOCUSATE SODIU100 MG ORAL (14:21)
[2018-09-30] MEDS ORDERED: FOLIC ACID1 MG ORAL (14:21)
[2018-09-30] MEDS ORDERED: NAMENDA10 MG ORAL (14:21)
[2018-09-30] MEDS ORDERED: CRANBERRY425 MG PO (14:21)
[2018-09-30] MEDS ORDERED: MILK OF MA400 MG/51 ORAL (14:21)
[2018-09-30] MEDS ORDERED: LOSARTAN POTAS100 MG ORAL (14:21)
[2018-09-30] MEDS ORDERED: VENLAFAXINE HCL25 MG ORAL (14:21)
[2018-09-30] MEDS ORDERED: LANTUS SOL100 UNIT/1 SUBQ (14:21)
[2018-09-30] MEDS ORDERED: ATROVENT HFA12.9 GM IH (14:21)
[2018-09-30] MEDS ORDERED: LIPITOR20 MG ORAL (14:21)
[2018-09-30] MEDS ORDERED: FERROUS SULFAT325 MG ORAL (14:21)
[2018-09-30] MEDS ORDERED: FLEET ENEMA133 ML RECTAL (14:21)
[2018-09-30] MEDS ORDERED: FUROSEMIDE20 M1 ORAL (14:21)
[2018-09-30] MEDS ORDERED: CARVEDILOL12.5 MG ORAL (14:21)
[2018-09-30] MEDS ORDERED: Miralax 17gm pkt ORAL PRN (14:45)
[2018-09-30] MEDS ORDERED: Albuterol/Ipratropium 3ml neb HHN PRN (14:45)
[2018-09-30] MEDS ORDERED: Morphine Sulfate 2mg/ml Inj IVP PRN (14:45)
--- NOTE | 2018-09-30 15:07 | Diagnostic Imaging Report ---
Indication: Shortness of breath Technique: One view of the chest Comparison: 07/03/2018 Findings: There is a large left pleural effusion, much larger than on the prior study. There is a moderate size right pleural effusion, new since the prior study. There is mild interstitial congestion. The heart borders are obscured, previously enlarged. Impression: Large left and moderate right pleural effusions Mild interstitial congestion
--- NOTE | 2018-09-30 15:10 | Emergency Room Report ---
History of Present Illness General Chief Complaint: Dyspnea/Respdistress Source: Medical Record Present Illness HPI 78-year-old female presents ED for evaluation of shortness of breath. Coming from [facility] facility. Nursing staff noted the patient was having increased O2 sats today. History of COPD. Patient is nonverbal at baseline due to dementia. Patient was given breathing treatment with O2 sats improving. Unable to provide any additional history at this time. No reported fevers or chills. No other aggravating relieving factors. No other associated symptoms Allergies: Coded Allergies: TAB INHIBITORS (Verified Allergy, Unknown, 06/29/18) Patient History Past Medical History: HTN, CHF, GERD, dementia, seizures, psych hx Past Surgical History: none Pertinent Family History: none Social History: Denies: smoking, alcohol use, drug use Now: No Immunizations: UTD Reviewed Nursing Documentation: PMH: Agreed; PSxH: Agreed Nursing Documentation-PMH Past Medical History: No History, Except For Hx Cardiac Problems: Yes - CHF Hx Hypertension: Yes - Thrombosis of left femoral vein Hx COPD: Yes Hx Diabetes: Yes Hx Cancer: No Hx Gastrointestinal Problems: Yes - GERD History Of Psychiatric Problem: Yes - Psychosis Hx Neurological Problems: Yes - Generalized muscle weakness, Dementia Hx Dementia: Yes Hx Seizures: Yes Review of Systems All Other Systems: limited Physical Exam Vital Signs Date Time Temp Pulse Resp B/P (MAP) Pulse Ox O2 Delivery O2 Flow Rate FiO2 09/30/18 12:47 97.0 105 22 139/84 98 Non-Rebreather 15.0 Sp02 EP Interpretation: reviewed, normal General Appearance: no apparent distress, non-toxic, other - nonverbal Head: normocephalic Eyes: bilateral eye normal inspection, bilateral eye PERRL ENT: normal ENT inspection Neck: normal inspection Respiratory: decreased breath sounds, crackles Cardiovascular #1: regular rate, rhythm, no edema Gastrointestinal: normal inspection Rectal: deferred Genitourinary: no CVA tenderness Musculoskeletal: normal inspection Neurologic: other - nonverbal Psychiatric: other - nobverbal Skin: normal inspection Lymphatic: normal inspection Medical Decision Making Diagnostic Impression: Primary Impression: Pulmonary edema Qualified Codes: J81.0 - Acute pulmonary edema Additional Impressions: COPD (chronic obstructive pulmonary disease) Qualified Codes: J44.9 - Chronic obstructive pulmonary disease, unspecified UTI (urinary tract infection) Qualified Codes: N39.0 - Urinary tract infection, site not specified Hypercapnia ER Course Hospital Course 78-year-old F presenting to ED with SOB. h/o COPD Differential diagnoses include: Pneumonia, CHF exacerbation, pneumothorax, fluid overload Clinical course Patient placed on stretcher. On electronic device monitor with stable vitals. After initial history and physical, I ordered nebulizer treatments. I ordered labs, IV fluids, EKG, chest x-ray, blood cultures, UA. Labs - no leukocytosis noted, hemoglobin/hematocrit stable, electrolytes okay, lactate okay, troponins negative, BNP elevated, UA+ bacteria CXR - bilateral infiltrates vs pulmonary edema EKG - arrythmia, no acute ischemic changes interpted by me ABG - PCO2 67 not in respiratory distress, no retractions. given abx. Case discussed with Dr. Locke and he agreed to the patient to his service for further care and support I feel this is a highly complex case requiring extensive working including EKG/ Rhythm strip, Xray/CT/US, Blood/urine lab work, repeat exams while in ED, and administration of strong opiates/narcotics for pain control, admission to hospital or close patient follow up. Diagnosis -pulmoanry edema, COPD, UTI, hypercapnia Patient admitted to telemetry in serious condition Labs Test 09/30/18 13:00 09/30/18 13:04 09/30/18 13:25 White Blood Count 8.9 K/UL (4.8-10.8) Red Blood Count 4.73 M/UL (4.20-5.40) Hemoglobin 13.4 G/DL (12.0-16.0) Hematocrit 42.0 % (37.0-47.0) Mean Corpuscular Volume 89 FL (80-99) Mean Corpuscular Hemoglobin 28.2 PG (27.0-31.0) Mean Corpuscular Hemoglobin Concent 31.8 G/DL (32.0-36.0) Red Cell Distribution Width 13.1 % (11.6-14.8) Platelet Count 224 K/UL (150-450) Mean Platelet Volume 6.6 FL (6.5-10.1) Neutrophils (%) (Auto) 83.4 % (45.0-75.0) Lymphocytes (%) (Auto) 10.1 % (20.0-45.0) Monocytes (%) (Auto) 5.7 % (1.0-10.0) Eosinophils (%) (Auto) 0.2 % (0.0-3.0) Basophils (%) (Auto) 0.6 % (0.0-2.0) Sodium Level 140 MMOL/L (136-145) Potassium Level 4.4 MMOL/L (3.5-5.1) Chloride Level 103 MMOL/L (98-107) Carbon Dioxide Level 35 MMOL/L (21-32) Anion Gap 2 mmol/L (5-15) Blood Urea Nitrogen 13 mg/dL (7-18) Creatinine 0.7 MG/DL (0.55-1.30) Estimat Glomerular Filtration Rate mL/min (>60) Glucose Level 165 MG/DL (74-106) Calcium Level 9.8 MG/DL (8.5-10.1) Total Bilirubin 0.8 MG/DL (0.2-1.0) Aspartate Amino Transf (AST/SGOT) 15 U/L (15-37) Alanine Aminotransferase (ALT/SGPT) 18 U/L (12-78) Alkaline Phosphatase 85 U/L (46-116) Total Creatine Kinase 19 U/L (26-308) Creatine Kinase MB 0.5 NG/ML (0.0-3.6) Creatine Kinase MB Relative Index 2.6 Troponin I 0.021 ng/mL (0.000-0.056) Pro-B-Type Natriuretic Peptide 7886 pg/mL (0-125) Total Protein 6.7 G/DL (6.4-8.2) Albumin 2.8 G/DL (3.4-5.0) Globulin 3.9 g/dL Albumin/Globulin Ratio 0.7 (1.0-2.7) Arterial Blood pH 7.340 (7.350-7.450) Arterial Blood Partial Pressure CO2 67.7 mmHg (35.0-45.0) Arterial Blood Partial Pressure O2 69.7 mmHg (75.0-100.0) Arterial Blood HCO3 36.1 mmol/L (22.0-26.0) Arterial Blood Oxygen Saturation 92.4 % (95-100) Arterial Blood Base Excess 8.0 (-2-2) [place] Test Positive Urine Color Yellow Urine Appearance Slightly cloudy Urine pH 5 (4.5-8.0) Urine Specific [place] 1.025 (1.005-1.035) Urine Protein 3+ (NEGATIVE) Urine Glucose (UA) Negative (NEGATIVE) Urine Ketones 2+ (NEGATIVE) Urine Blood 4+ (NEGATIVE) Urine Nitrite Positive (NEGATIVE) Urine Bilirubin Negative (NEGATIVE) Urine Urobilinogen 4 MG/DL (0.0-1.0) Urine Leukocyte Esterase 3+ (NEGATIVE) Urine RBC 2-4 /HPF (0 - 2) Urine WBC 15-20 /HPF (0 - 2) Urine Squamous Epithelial Cells Few /LPF (NONE/OCC) Urine Amorphous Sediment Few /LPF (NONE) Urine Bacteria Moderate /HPF (NONE) EKG Diagnostic Results Rate: normal Rhythm: NSR ST Segments: no acute changes ASA given to the pt in ED: No Rhythm Strip Diag. Results EP Interpretation: yes Rhythm: NSR, no PVC's, no ectopy Chest X-Ray Diagnostic Results Chest X-Ray Diagnostic Results : Chest X-Ray Ordered: Yes # of Views/Limited/Complete: 1 View Indication: Shortness of Breath EP Interpretation: Yes Interpretation: no pneumothorax, other - bilateral pulmonary edema Impression: Other - pulmonary edema/CHF Electronically Signed by: Electronically signed by Elvis Jacome MD Last Vital Signs Date Time Temp Pulse Resp B/P (MAP) Pulse Ox O2 Delivery O2 Flow Rate FiO2 09/30/18 13:32 82 14 Non-Rebreather 15.0 09/30/18 13:00 97.0 139/84 98 Status: improved Disposition: ADMITTED INPATIENT Condition: Serious Referrals: NON PHYSICIAN (PCP) Elvis Jacome MD Sep 30, 2018 15:10
[2018-09-30 15:20] VITALS: BP 144/80
--- NOTE | 2018-09-30 15:20 | Consultation ---
History of Present Illness General Chief Complaint: Dyspnea/Respdistress Present Illness HPI 78-year-old female presents ED for evaluation of shortness of breath. the pt is non communicative and is having hx of anxiety and depression. the pt is on venlafaxine qid/[ Allergies: Coded Allergies: TAB INHIBITORS (Verified Allergy, Unknown, 06/29/18) Medication History Scheduled Amlodipine Besylate* (Amlodipine Besylate*), 10 MG ORAL DAILY, (Reported) Aspirin* (Aspir 81*), 81 MG ORAL DAILY, (Reported) Atorvastatin Calcium* (Lipitor*), 20 MG ORAL BEDTIME, (Reported) Bisacodyl* (Dulcolax*), 10 MG RECTAL DAILY, (Reported) Carvedilol* (Carvedilol*), 12.5 MG ORAL EVERY 12 HOURS, (Reported) Clonidine Hcl* (Catapres*), 0.1 MG ORAL EVERY 6 HOURS, (Reported) Cranberry Extract (Cranberry), 425 MG PO BID, (Reported) Docusate Sodium* (Docusate Sodium*), 100 MG ORAL DAILY, (Reported) Ferrous Sulfate* (Ferrous Sulfate*), 330 MG ORAL DAILY, (Reported) Folic Acid* (Folic Acid*), 1 MG ORAL DAILY, (Reported) Furosemide* (Lasix*), 20 MG ORAL EVERY 12 HOURS Furosemide* (Lasix*), 20 MG ORAL DAILY, (Reported) Insulin Glargine (Lantus), 10 SUBQ BEDTIME, (Reported) Ipratropium [place] (Atrovent Hfa), 12.9 GM IH Q4HR, (Reported) Latanoprost* (Xalatan*), 1 DROP LEFT EYE BEDTIME, (Reported) Losartan Potassium (Losartan Potassium), 25 MG ORAL DAILY, (Reported) Magnesium Hydroxide* (Milk Of Magnesia*), 30 ML ORAL DAILY, (Reported) Memantine Hcl* (Namenda*), 10 MG ORAL QHS, (Reported) Memantine Hcl* (Namenda*), 10 MG ORAL DAILY, (Reported) Metformin Hcl* (Metformin Hcl*), 500 MG ORAL TWICE A DAY, (Reported) Na Phos,M-B/Na Phos,Di-Ba* (Fleet Enema*), 133 ML RECTAL DAILY, (Reported) Oxcarbazepine* (Trileptal*), 150 MG PO QHS, (Reported) Pantoprazole* (Pantoprazole*), 40 MG ORAL DAILY, (Reported) Polyethylene Glycol 3350* (Miralax*), 17 GM ORAL DAILY, (Reported) Rivaroxaban (Xarelto*), 20 MG ORAL DAILY, (Reported) Thiamine Hcl* (Vitamin B-1*), 100 MG ORAL DAILY, (Reported) Venlafaxine Hcl* (Venlafaxine Hcl*), 75 MG ORAL QID, (Reported) Venlafaxine Hcl* (Effexor*), 75 MG ORAL QID, (Reported) Zinc Sulfate (Zinc Sulfate*), 220 MG ORAL DAILY, (Reported) Scheduled PRN Ipratropium [place] 0.5MG/2.5ML (Ipratropium [place] 0.5MG/2.5ML), 0.5 MG HHN Q6H PRN for Shortness of Breath, (Reported) Miscellaneous Medications Multivitamin/Iron/Folic Acid (Centrum Complete Multivit Tab), 1 EACH PO, ( Reported) Patient History Limited by: medical condition History Provided By: Medical Record, PMD Healthcare decision maker Resuscitation status Advanced Directive on File Review of Systems Psychiatric: Reports: prior hx, anxiety, depressed feelings, emotional problems Physical Exam General Appearance: alert, confused Neurologic: depressed affect Last 24 Hour Vital Signs Date Time Temp Pulse Resp B/P (MAP) Pulse Ox O2 Delivery O2 Flow Rate FiO2 09/30/18 13:32 82 14 Non-Rebreather 15.0 09/30/18 13:00 97.0 22 139/84 98 Non-Rebreather 15.0 09/30/18 12:47 97.0 105 22 139/84 98 Non-Rebreather 15.0 Laboratory Tests Test 09/30/18 13:00 09/30/18 13:04 09/30/18 13:25 White Blood Count 8.9 K/UL (4.8-10.8) Red Blood Count 4.73 M/UL (4.20-5.40) Hemoglobin 13.4 G/DL (12.0-16.0) Hematocrit 42.0 % (37.0-47.0) Mean Corpuscular Volume 89 FL (80-99) Mean Corpuscular Hemoglobin 28.2 PG (27.0-31.0) Mean Corpuscular Hemoglobin Concent 31.8 G/DL (32.0-36.0) L Red Cell Distribution Width 13.1 % (11.6-14.8) Platelet Count 224 K/UL (150-450) Mean Platelet Volume 6.6 FL (6.5-10.1) Neutrophils (%) (Auto) 83.4 % (45.0-75.0) H Lymphocytes (%) (Auto) 10.1 % (20.0-45.0) L Monocytes (%) (Auto) 5.7 % (1.0-10.0) Eosinophils (%) (Auto) 0.2 % (0.0-3.0) Basophils (%) (Auto) 0.6 % (0.0-2.0) Sodium Level 140 MMOL/L (136-145) Potassium Level 4.4 MMOL/L (3.5-5.1) Chloride Level 103 MMOL/L (98-107) Carbon Dioxide Level 35 MMOL/L (21-32) H Anion Gap 2 mmol/L (5-15) L Blood Urea Nitrogen 13 mg/dL (7-18) Creatinine 0.7 MG/DL (0.55-1.30) Estimat Glomerular Filtration Rate mL/min (>60) Glucose Level 165 MG/DL (74-106) H Calcium Level 9.8 MG/DL (8.5-10.1) Total Bilirubin 0.8 MG/DL (0.2-1.0) Aspartate Amino Transf (AST/SGOT) 15 U/L (15-37) Alanine Aminotransferase (ALT/SGPT) 18 U/L (12-78) Alkaline Phosphatase 85 U/L (46-116) Total Creatine Kinase 19 U/L (26-308) L Creatine Kinase MB 0.5 NG/ML (0.0-3.6) Creatine Kinase MB Relative Index 2.6 Troponin I 0.021 ng/mL (0.000-0.056) Pro-B-Type Natriuretic Peptide 7886 pg/mL (0-125) H Total Protein 6.7 G/DL (6.4-8.2) Albumin 2.8 G/DL (3.4-5.0) L Globulin 3.9 g/dL Albumin/Globulin Ratio 0.7 (1.0-2.7) L Arterial Blood pH 7.340 (7.350-7.450) Arterial Blood Partial Pressure CO2 67.7 mmHg (35.0-45.0) *H Arterial Blood Partial Pressure O2 69.7 mmHg (75.0-100.0) L Arterial Blood HCO3 36.1 mmol/L (22.0-26.0) H Arterial Blood Oxygen Saturation 92.4 % (95-100) L Arterial Blood Base Excess 8.0 (-2-2) H [place] Test Positive Urine Color Yellow Urine Appearance Slightly cloudy Urine pH 5 (4.5-8.0) Urine Specific [place] 1.025 (1.005-1.035) Urine Protein 3+ (NEGATIVE) H Urine Glucose (UA) Negative (NEGATIVE) Urine Ketones 2+ (NEGATIVE) H Urine Blood 4+ (NEGATIVE) H Urine Nitrite Positive (NEGATIVE) H Urine Bilirubin Negative (NEGATIVE) Urine Urobilinogen 4 MG/DL (0.0-1.0) H Urine Leukocyte Esterase 3+ (NEGATIVE) H Urine RBC 2-4 /HPF (0 - 2) H Urine WBC 15-20 /HPF (0 - 2) H Urine Squamous Epithelial Cells Few /LPF (NONE/OCC) Urine Amorphous Sediment Few /LPF (NONE) H Urine Bacteria Moderate /HPF (NONE) H Microbiology Date/Time Source Procedure Growth Status 09/30/18 13:30 Nasal Nares Influenza Types A,B Antigen (AAKASH) - Final Complete Height (Feet): 5 Height (Inches): 4.00 Weight (Pounds): 170 Medications Current Medications Medications (Trade) Dose Ordered Sig/Young Route PRN Reason Start Time Stop Time Status Last Admin Dose Admin Acetaminophen (Tylenol) 650 mg Q4H PRN ORAL fever 09/30/18 14:45 10/30/18 14:44 Albuterol/ Ipratropium (Albuterol/ Ipratropium) 3 ml Q4H PRN HHN Shortness of Breath 09/30/18 14:45 10/05/18 14:44 Cefepime HCl 1 gm/ Dextrose 55 ml @ 110 mls/hr Q24H IVPB 09/30/18 17:00 10/07/18 16:59 Heparin Sodium (Porcine) (Heparin 5000 units/ml) 5,000 units EVERY 12 HOURS SUBQ 09/30/18 21:00 10/30/18 20:59 Levofloxacin 150 ml @ 100 mls/hr NOW ONCE IVPB 09/30/18 15:00 09/30/18 16:29 09/30/18 15:04 Morphine Sulfate (Morphine Sulfate) 2 mg Q4H PRN IVP Moderate Pain (Pain Scale 4-6) 09/30/18 14:45 10/07/18 14:44 Ondansetron HCl (Zofran) 4 mg Q6H PRN IVP Nausea & Vomiting 09/30/18 14:45 10/30/18 14:44 Phenazopyridine HCl (Pyridium) 100 mg DAILYPRN PRN ORAL dysuria 09/30/18 14:45 10/30/18 14:44 Polyethylene Glycol (Miralax) 17 gm DAILYPRN PRN ORAL Constipation 09/30/18 14:45 10/30/18 14:44 Temazepam (Restoril) 15 mg HSPRN PRN ORAL Insomnia 09/30/18 14:45 10/07/18 14:44 Vancomycin HCl (Vanco rx to dose) 1 ea DAILY PRN MISC PER PHARM 09/30/18 15:15 10/30/18 15:14 Vancomycin HCl 1 gm/Dextrose 275 ml @ 183.3 mls/ hr Q24H IVPB 09/30/18 19:00 10/05/18 18:59 Assessment/Plan Problem List: (1) Dementia ICD Codes: F03.90 - Unspecified dementia without behavioral disturbance SNOMED: 47103852 (2) Major depression ICD Codes: F32.9 - Major depressive disorder, single episode, unspecified SNOMED: 990391065 Assessment/Plan venlafaxine 225mg qam. dc the qid Milton Schultz MD Sep 30, 2018 15:19
--- NOTE | 2018-09-30 16:22 | Consultation ---
Consult Note Consult Note # [id number] Jose Manuel Dong MD Sep 30, 2018 16:22
[2018-09-30] MEDS: Cefepime 1gm in D5W 55ml IVPB SCH (17:30)
[2018-09-30] MEDS ORDERED: Vancomycin 1 GM in D5W 275 ML IVPB SCH (19:00)
[2018-09-30 20:00] VITALS: BP 148/88
[2018-09-30] MEDS ORDERED: Cefepime HCl 2 GM in D5W 110 ML IV SCH (21:00)
[2018-09-30] MEDS: Heparin 5000 units/ml inj SUBQ SCH (21:04)
[2018-10-01] VITALS: BP 149/84
[2018-10-01 04:00] VITALS: BP 152/83
[2018-10-01] MEDS: NovoLOG Insulin Flexpen SUBQ SCH ×4 (06:37→21:28)
[2018-10-01 07:06] LABS: APPEARANCE,URINE SLIGHTLY CLOUDY; BILIRUBIN, URINE NEGATIVE (NEGATIVE); GLUCOSE, URINE (UA) NEGATIVE (NEGATIVE); KETONES,URINE 4+ (NEGATIVE); LEUKOCYTE ESTERASE ,URINE 1+ (NEGATIVE); NITRITE,URINE POSITIVE (NEGATIVE); PH,URINE 5 (4.5-8.0); PROTEIN,URINE 2+ (NEGATIVE); UROBILINOGEN,URINE 1 MG/DL (0.0-1.0)
[2018-10-01 07:11] LABS: COLOR,URINE YELLOW
[2018-10-01 08:00] VITALS: BP 141/69
[2018-10-01 08:42] LABS: BASOPHILS % (AUTO) 0.5 % (0.0-2.0); HEMATOCRIT 42.1 % (37.0-47.0); LYMPHOCYTES % (AUTO) 13.3 % (20.0-45.0); MEAN CORPUSCULAR VOLUME 88 FL (80-99); MONOCYTES % (AUTO) 7.6 % (1.0-10.0); NEUTROPHILS % (AUTO) 78.6 % (45.0-75.0); PLATELET COUNT 239 K/UL (150-450); RED BLOOD COUNT 4.76 M/UL (4.20-5.40); WHITE BLOOD COUNT 8.9 K/UL (4.8-10.8)
[2018-10-01 09:17] LABS: ALANINE AMINOTRANSFERASE 17 U/L (12-78); ALBUMIN 2.8 G/DL (3.4-5.0); ALBUMIN/GLOBULIN RATIO 0.7 (1.0-2.7); ALKALINE PHOSPHATASE 81 U/L (46-116); ANION GAP 2 mmol/L (5-15); ASPARTATE AMINO TRANSFERASE 12 U/L (15-37); BILIRUBIN,TOTAL 0.7 MG/DL (0.2-1.0); BLOOD UREA NITROGEN 14 mg/dL (7-18); CALCIUM 10.1 MG/DL (8.5-10.1); CARBON DIOXIDE 34 MMOL/L (21-32); CHLORIDE 104 MMOL/L (98-107); CREATININE 0.8 MG/DL (0.55-1.30); POTASSIUM 3.9 MMOL/L (3.5-5.1); SODIUM 140 MMOL/L (136-145)
--- NOTE | 2018-10-01 09:45 | Consultation ---
DATE OF CONSULTATION: 09/30/2018 NOTE: POOR AUDIO INFECTIOUS DISEASE CONSULTATION CONSULTING PHYSICIAN: Jose Manuel Dong M.D. REFERRING PHYSICIAN: Mariah Locke M.D. REASON FOR CONSULTATION: Evaluation of the patient for pneumonia. HISTORY OF PRESENT ILLNESS: The patient is a 78-year-old female with multiple medical problems as listed below who was admitted to this medical center due to the shortness of breath. Chest x-ray showed bilateral effusion. The patient has been started on IV antibiotics. The patient resides in nursing facility. Rapid influenza test is negative. PAST MEDICAL HISTORY: 1. Hypertension. 2. CHF. 3. GERD. 4. Dementia. 5. Seizure disorder. 6. Psych history (question exact nature of that). 7. History of pleural effusion, status post thoracocentesis in June 2018 (no evidence of exudates, no evidence of infectious process.) ALLERGIES: No allergies to antibiotics. FAMILY HISTORY: Noncontributory. SOCIAL HISTORY: Ex-smoker. No history of alcohol or drug abuse. MEDICATIONS: IV vancomycin and cefepime. REVIEW OF SYSTEMS: HEENT: No recent change in vision or hearing. PULMONARY: The patient has mild cough with no sputum production, confused, and shortness of breath. CARDIOVASCULAR: No chest pain or palpitations. GASTROINTESTINAL/ABDOMEN: No nausea or vomiting. GENITOURINARY: No dysuria. MUSCULOSKELETAL: No pain in extremity. NEUROLOGIC: Awake and alert. PHYSICAL EXAMINATION: VITAL SIGNS: Temperature 97.7, blood pressure 144/80, pulse 86, and respiratory rate 18. HEENT: No pale conjunctivae. No icterus. CHEST: Diminished bilateral breathing sounds, mainly at the bases. ABDOMEN: Soft and nontender. EXTREMITIES: No cyanosis. LABORATORY AND DIAGNOSTIC DATA: White blood cell cells 8.8, hemoglobin 13, and platelets 224,000. UA of 15 to 20 white blood cells. BUN 13 and creatinine 0.7. ALT, AST, and alkaline phosphatase are unremarkable. Rapid influenza test is negative. ASSESSMENT: 1. Shortness of breath/probable pneumonia. 2. Bilateral pleural effusion. 3. Probable bacteremia. 4. Influenza screen negative. PLAN: 1. We will continue the patient on IV cefepime. 2. Discontinue vancomycin. 3. Monitor CBC. 4. Monitor BMP. 5. Monitor cultures (blood, urine, sputum). 6. . 7. defer to Pulmonology ada accommodation consultant. 8. Monitor chest x-ray. 9. Based on the patient's clinical course and labs, we will do further recommendation. Jose Manuel Dong M.D. DR: STACY JOB#: [id number] CC:
[2018-10-01] MEDS: Venlafaxine HCl 37.5mg Tab ORAL SCH (09:58)
[2018-10-01] MEDS: Heparin 5000 units/ml inj SUBQ SCH ×2 (10:00→21:29)
--- NOTE | 2018-10-01 10:58 | Consultation ---
History of Present Illness General Date patient seen: Oct 01, 2018 Chief Complaint: Dyspnea/Respdistress Present Illness HPI 78-year-old female with hx of dementia, CHF, EF of 40%, CAD, [facility] resident presented to ED for shortness of breath. Pt was wheezing and had low O2 sat. Started on breathing treatment by EMS.. Patient denies any fevers or chills. Denies chest pain. . No other aggravating relieving factors. Her CXR showed pulmonary edema and pleural effusion. Pt received steroids and abx in ER and admitted to telemetry for further for further management. Allergies: Coded Allergies: TAB INHIBITORS (Verified Allergy, Unknown, 06/29/18) Medication History Scheduled Amlodipine Besylate* (Amlodipine Besylate*), 10 MG ORAL DAILY, (Reported) Aspirin* (Aspir 81*), 81 MG ORAL DAILY, (Reported) Atorvastatin Calcium* (Lipitor*), 20 MG ORAL BEDTIME, (Reported) Bisacodyl* (Dulcolax*), 10 MG RECTAL DAILY, (Reported) Carvedilol* (Carvedilol*), 12.5 MG ORAL EVERY 12 HOURS, (Reported) Clonidine Hcl* (Catapres*), 0.1 MG ORAL EVERY 6 HOURS, (Reported) Cranberry Extract (Cranberry), 425 MG PO BID, (Reported) Docusate Sodium* (Docusate Sodium*), 100 MG ORAL DAILY, (Reported) Ferrous Sulfate* (Ferrous Sulfate*), 330 MG ORAL DAILY, (Reported) Folic Acid* (Folic Acid*), 1 MG ORAL DAILY, (Reported) Furosemide* (Lasix*), 20 MG ORAL EVERY 12 HOURS Furosemide* (Lasix*), 20 MG ORAL DAILY, (Reported) Insulin Glargine (Lantus), 10 SUBQ BEDTIME, (Reported) Ipratropium [place] (Atrovent Hfa), 12.9 GM IH Q4HR, (Reported) Latanoprost* (Xalatan*), 1 DROP LEFT EYE BEDTIME, (Reported) Losartan Potassium (Losartan Potassium), 25 MG ORAL DAILY, (Reported) Magnesium Hydroxide* (Milk Of Magnesia*), 30 ML ORAL DAILY, (Reported) Memantine Hcl* (Namenda*), 10 MG ORAL QHS, (Reported) Memantine Hcl* (Namenda*), 10 MG ORAL DAILY, (Reported) Metformin Hcl* (Metformin Hcl*), 500 MG ORAL TWICE A DAY, (Reported) Na Phos,M-B/Na Phos,Di-Ba* (Fleet Enema*), 133 ML RECTAL DAILY, (Reported) Oxcarbazepine* (Trileptal*), 150 MG PO QHS, (Reported) Pantoprazole* (Pantoprazole*), 40 MG ORAL DAILY, (Reported) Polyethylene Glycol 3350* (Miralax*), 17 GM ORAL DAILY, (Reported) Rivaroxaban (Xarelto*), 20 MG ORAL DAILY, (Reported) Thiamine Hcl* (Vitamin B-1*), 100 MG ORAL DAILY, (Reported) Venlafaxine Hcl* (Venlafaxine Hcl*), 75 MG ORAL QID, (Reported) Venlafaxine Hcl* (Effexor*), 75 MG ORAL QID, (Reported) Zinc Sulfate (Zinc Sulfate*), 220 MG ORAL DAILY, (Reported) Scheduled PRN Ipratropium [place] 0.5MG/2.5ML (Ipratropium [place] 0.5MG/2.5ML), 0.5 MG HHN Q6H PRN for Shortness of Breath, (Reported) Miscellaneous Medications Multivitamin/Iron/Folic Acid (Centrum Complete Multivit Tab), 1 EACH PO, ( Reported) Patient History Healthcare decision maker Resuscitation status Full Code Advanced Directive on File Past Medical/Surgical History Past Medical/Surgical History: (1) Heart failure, left, 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% (2) Major depression (3) Dementia (4) COPD (chronic obstructive pulmonary disease) (5) Diabetes mellitus (6) CAD (coronary artery disease) Review of Systems All Other Systems: negative except mentioned in HPI Physical Exam General Appearance: WD/WN Lines, tubes and drains: peripheral HEENT: normocephalic Respiratory/Chest: chest wall non-tender, rhonchi - left, rhonchi - right Cardiovascular/Chest: normal peripheral pulses, normal rate Abdomen: normal bowel sounds, non tender Genitourinary/Rectal: normal genital exam Last 24 Hour Vital Signs Date Time Temp Pulse Resp B/P (MAP) Pulse Ox O2 Delivery O2 Flow Rate FiO2 10/01/18 08:00 98.4 106 20 141/69 (93) 97 11/15/18 04:00 97.9 108 20 152/83 (106) 96 10/01/18 04:00 101 10/01/18 00:00 98.0 99 20 149/84 (105) 96 10/01/18 00:00 101 09/30/18 21:00 Nasal Cannula 2.0 09/30/18 20:16 103 18 Nasal Cannula 2.0 28 09/30/18 20:15 Nasal Cannula 2.0 28 09/30/18 20:14 97 Nasal Cannula 2.0 28 09/30/18 20:00 97.0 105 22 148/88 (108) 96 09/30/18 20:00 101 09/30/18 16:03 97.7 85 16 144/80 99 Venturi Mask 10.0 55 09/30/18 16:00 87 09/30/18 15:58 Venturi Mask 5.0 09/30/18 15:20 97.7 85 16 144/80 99 Venturi Mask 10.0 55 09/30/18 14:05 82 14 99 Venturi Mask 10.0 55 09/30/18 13:44 83 14 Non-Rebreather 15.0 100 09/30/18 13:44 83 14 96 Non-Rebreather 15.0 100 09/30/18 13:44 100 09/30/18 13:32 82 14 Non-Rebreather 15.0 09/30/18 13:00 97.0 22 139/84 98 Non-Rebreather 15.0 09/30/18 12:47 97.0 105 22 139/84 98 Non-Rebreather 15.0 Intake and Output 09/30/18 10/01/18 19:00 07:00 Intake Total 1000 ml Balance 1000 ml IV Total 1000 ml Other 0 ml # Voids 1 3 # Bowel Movements 1 Laboratory Tests Test 09/30/18 13:00 09/30/18 13:04 09/30/18 13:25 10/01/18 08:26 White Blood Count 8.9 K/UL (4.8-10.8) 8.9 K/UL (4.8-10.8) Red Blood Count 4.73 M/UL (4.20-5.40) 4.76 M/UL (4.20-5.40) Hemoglobin 13.4 G/DL (12.0-16.0) 14.0 G/DL (12.0-16.0) Hematocrit 42.0 % (37.0-47.0) 42.1 % (37.0-47.0) Mean Corpuscular Volume 89 FL (80-99) 88 FL (80-99) Mean Corpuscular Hemoglobin 28.2 PG (27.0-31.0) 29.3 PG (27.0-31.0) Mean Corpuscular Hemoglobin Concent 31.8 G/DL (32.0-36.0) L 33.1 G/DL (32.0-36.0) Red Cell Distribution Width 13.1 % (11.6-14.8) 13.0 % (11.6-14.8) Platelet Count 224 K/UL (150-450) 239 K/UL (150-450) Mean Platelet Volume 6.6 FL (6.5-10.1) 6.8 FL (6.5-10.1) Neutrophils (%) (Auto) 83.4 % (45.0-75.0) H 78.6 % (45.0-75.0) H Lymphocytes (%) (Auto) 10.1 % (20.0-45.0) L 13.3 % (20.0-45.0) L Monocytes (%) (Auto) 5.7 % (1.0-10.0) 7.6 % (1.0-10.0) Eosinophils (%) (Auto) 0.2 % (0.0-3.0) 0.0 % (0.0-3.0) Basophils (%) (Auto) 0.6 % (0.0-2.0) 0.5 % (0.0-2.0) Sodium Level 140 MMOL/L (136-145) 140 MMOL/L (136-145) Potassium Level 4.4 MMOL/L (3.5-5.1) 3.9 MMOL/L (3.5-5.1) Chloride Level 103 MMOL/L (98-107) 104 MMOL/L (98-107) Carbon Dioxide Level 35 MMOL/L (21-32) H 34 MMOL/L (21-32) H Anion Gap 2 mmol/L (5-15) L 2 mmol/L (5-15) L Blood Urea Nitrogen 13 mg/dL (7-18) 14 mg/dL (7-18) Creatinine 0.7 MG/DL (0.55-1.30) 0.8 MG/DL (0.55-1.30) Estimat Glomerular Filtration Rate mL/min (>60) mL/min (>60) Glucose Level 165 MG/DL (74-106) H 189 MG/DL (74-106) H Calcium Level 9.8 MG/DL (8.5-10.1) 10.1 MG/DL (8.5-10.1) Total Bilirubin 0.8 MG/DL (0.2-1.0) 0.7 MG/DL (0.2-1.0) Aspartate Amino Transf (AST/SGOT) 15 U/L (15-37) 12 U/L (15-37) L Alanine Aminotransferase (ALT/SGPT) 18 U/L (12-78) 17 U/L (12-78) Alkaline Phosphatase 85 U/L (46-116) 81 U/L (46-116) Total Creatine Kinase 19 U/L (26-308) L Creatine Kinase MB 0.5 NG/ML (0.0-3.6) Creatine Kinase MB Relative Index 2.6 Troponin I 0.021 ng/mL (0.000-0.056) Pro-B-Type Natriuretic Peptide 7886 pg/mL (0-125) H Total Protein 6.7 G/DL (6.4-8.2) 6.7 G/DL (6.4-8.2) Albumin 2.8 G/DL (3.4-5.0) L 2.8 G/DL (3.4-5.0) L Globulin 3.9 g/dL 3.9 g/dL Albumin/Globulin Ratio 0.7 (1.0-2.7) L 0.7 (1.0-2.7) L Arterial Blood pH 7.340 (7.350-7.450) Arterial Blood Partial Pressure CO2 67.7 mmHg (35.0-45.0) *H Arterial Blood Partial Pressure O2 69.7 mmHg (75.0-100.0) L Arterial Blood HCO3 36.1 mmol/L (22.0-26.0) H Arterial Blood Oxygen Saturation 92.4 % (95-100) L Arterial Blood Base Excess 8.0 (-2-2) H [place] Test Positive Urine Color Yellow Urine Appearance Slightly cloudy Urine pH 5 (4.5-8.0) Urine Specific [place] 1.025 (1.005-1.035) Urine Protein 3+ (NEGATIVE) H Urine Glucose (UA) Negative (NEGATIVE) Urine Ketones 2+ (NEGATIVE) H Urine Blood 4+ (NEGATIVE) H Urine Nitrite Positive (NEGATIVE) H Urine Bilirubin Negative (NEGATIVE) Urine Urobilinogen 4 MG/DL (0.0-1.0) H Urine Leukocyte Esterase 3+ (NEGATIVE) H Urine RBC 2-4 /HPF (0 - 2) H Urine WBC 15-20 /HPF (0 - 2) H Urine Squamous Epithelial Cells Few /LPF (NONE/OCC) Urine Amorphous Sediment Few /LPF (NONE) H Urine Bacteria Moderate /HPF (NONE) H C-Reactive Protein, Quantitative 2.5 mg/dL (0.00-0.90) H Microbiology Date/Time Source Procedure Growth Status 09/30/18 13:30 Nasal Nares Influenza Types A,B Antigen (AAKASH) - Final Complete 10/01/18 06:30 Indwelling Cath Urine Culture - Preliminary Resulted Height (Feet): 5 Height (Inches): 4.00 Weight (Pounds): 170 Medications Current Medications Medications (Trade) Dose Ordered Sig/Young Route PRN Reason Start Time Stop Time Status Last Admin Dose Admin Acetaminophen (Tylenol) 650 mg Q4H PRN ORAL fever 09/30/18 14:45 10/30/18 14:44 10/01/18 10:01 Albuterol/ Ipratropium (Albuterol/ Ipratropium) 3 ml Q4H PRN HHN Shortness of Breath 09/30/18 14:45 10/05/18 14:44 Cefepime HCl 1 gm/ Dextrose 55 ml @ 110 mls/hr Q24H IVPB 09/30/18 17:00 10/07/18 16:59 09/30/18 17:30 Dextrose (Dextrose 50%) 25 ml Q30M PRN IV Hypoglycemia 09/30/18 21:30 10/30/18 21:29 Dextrose (Dextrose 50%) 50 ml Q30M PRN IV Hypoglycemia 09/30/18 21:30 10/30/18 21:29 Furosemide 100 mg/ Dextrose 110 ml @ 11 mls/hr Q10H IV 10/01/18 12:00 10/31/18 11:59 Heparin Sodium (Porcine) (Heparin 5000 units/ml) 5,000 units EVERY 12 HOURS SUBQ 09/30/18 21:00 10/30/18 20:59 10/01/18 10:00 Insulin Aspart (NovoLOG) BEFORE MEALS AND HS SUBQ 10/01/18 06:30 10/31/18 06:29 10/01/18 06:37 Morphine Sulfate (Morphine Sulfate) 2 mg Q4H PRN IVP Moderate Pain (Pain Scale 4-6) 09/30/18 14:45 10/07/18 14:44 Ondansetron HCl (Zofran) 4 mg Q6H PRN IVP Nausea & Vomiting 09/30/18 14:45 10/30/18 14:44 Phenazopyridine HCl (Pyridium) 100 mg DAILYPRN PRN ORAL dysuria 09/30/18 14:45 10/30/18 14:44 Polyethylene Glycol (Miralax) 17 gm DAILYPRN PRN ORAL Constipation 09/30/18 14:45 10/30/18 14:44 Temazepam (Restoril) 15 mg HSPRN PRN ORAL Insomnia 09/30/18 14:45 10/07/18 14:44 Venlafaxine HCl (Effexor) 225 mg DAILY ORAL 10/01/18 09:00 10/31/18 08:59 10/01/18 09:58 Assessment/Plan Problem List: (1) Acute respiratory failure ICD Codes: J96.00 - Acute respiratory failure, unspecified whether with hypoxia or hypercapnia SNOMED: 97552433 (2) Pulmonary edema ICD Codes: J81.1 - Chronic pulmonary edema SNOMED: 07561536 Qualifiers: Qualified Codes: J81.0 - Acute pulmonary edema (3) Heart failure, left, 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% ICD Codes: I50.1 - Left ventricular failure, unspecified SNOMED: 35796492 (4) CAD (coronary artery disease) ICD Codes: I25.10 - Atherosclerotic heart disease of [place] coronary artery without angina pectoris SNOMED: 66696127 (5) COPD (chronic obstructive pulmonary disease) ICD Codes: J44.9 - Chronic obstructive pulmonary disease, unspecified SNOMED: 09626910 Qualifiers: Qualified Codes: J44.9 - Chronic obstructive pulmonary disease, unspecified (6) Dementia ICD Codes: F03.90 - Unspecified dementia without behavioral disturbance SNOMED: 07447435 (7) Diabetes mellitus ICD Codes: E11.9 - Type 2 diabetes mellitus without complications SNOMED: 70768165 Assessment/Plan respiratory treatment echo optimize cardiac meds diuretics sliding scale measure intake and output dvt prophylaxis Reconsider Code status, because of recurrent admission, dementia, and CHF, poor quality of life social service consult Mariah Locke MD Oct 01, 2018 10:58
[2018-10-01 12:00] VITALS: BP 123/50
--- NOTE | 2018-10-01 15:46 | Infectious Diseases Prog Note ---
Assessment/Plan Assessment/Plan ASSESSMENT: Shortness of breath/probable pneumonia. Bilateral pleural effusion. Ro Probable bacteremia. Influenza screen negative. UCx : 100K GNR Colonizer Hypertension CHF GERD. Dementia Seizure disorder Psych history (question exact nature of that). History of pleural effusion, status post thoracocentesis in June 2018 (no evidence of exudates, no evidence of infectious process) PLAN: Continue the patient on IV cefepime d# 2 09/30 Sp Vancomycin d# 1 Monitor CBC Monitor BMP Monitor cultures (blood, urine, sputum) Monitor CXR need for Thoracocentesis: defer to Pulmonology personal consultant Subjective Allergies: Coded Allergies: TAB INHIBITORS (Verified Allergy, Unknown, 06/29/18) Subjective comfortable Objective Vital Signs Last 24 Hour Vital Signs Date Time Temp Pulse Resp B/P (MAP) Pulse Ox O2 Delivery O2 Flow Rate FiO2 10/01/18 12:00 97.5 89 20 123/50 (74) 100 10/01/18 12:00 83 10/01/18 09:00 Nasal Cannula 2.0 10/01/18 08:00 98.4 106 20 141/69 (93) 97 10/01/18 08:00 106 10/01/18 04:00 97.9 108 20 152/83 (106) 96 10/01/18 04:00 101 10/01/18 00:00 98.0 99 20 149/84 (105) 96 10/01/18 00:00 101 09/30/18 21:00 Nasal Cannula 2.0 09/30/18 20:16 103 18 Nasal Cannula 2.0 28 09/30/18 20:15 Nasal Cannula 2.0 28 09/30/18 20:14 97 Nasal Cannula 2.0 28 09/30/18 20:00 97.0 105 22 148/88 (108) 96 09/30/18 20:00 101 09/30/18 16:03 97.7 85 16 144/80 99 Venturi Mask 10.0 55 09/30/18 16:00 87 09/30/18 15:58 Venturi Mask 5.0 Height (Feet): 5 Height (Inches): 4.00 Weight (Pounds): 170 HEENT: anicteric Respiratory/Chest: no respiratory distress Cardiovascular: regularly irregular Abdomen: non distended Microbiology Date/Time Source Procedure Growth Status 09/30/18 13:30 Nasal Nares Influenza Types A,B Antigen (AAKASH) - Final Complete 10/01/18 06:30 Indwelling Cath Urine Culture - Preliminary Resulted 09/30/18 06:30 Urine,Clean Catch Urine Culture - Preliminary Gram Negative Bacillus 1 Resulted Laboratory Tests Test 10/01/18 08:26 White Blood Count 8.9 K/UL (4.8-10.8) Red Blood Count 4.76 M/UL (4.20-5.40) Hemoglobin 14.0 G/DL (12.0-16.0) Hematocrit 42.1 % (37.0-47.0) Mean Corpuscular Volume 88 FL (80-99) Mean Corpuscular Hemoglobin 29.3 PG (27.0-31.0) Mean Corpuscular Hemoglobin Concent 33.1 G/DL (32.0-36.0) Red Cell Distribution Width 13.0 % (11.6-14.8) Platelet Count 239 K/UL (150-450) Mean Platelet Volume 6.8 FL (6.5-10.1) Neutrophils (%) (Auto) 78.6 % (45.0-75.0) H Lymphocytes (%) (Auto) 13.3 % (20.0-45.0) L Monocytes (%) (Auto) 7.6 % (1.0-10.0) Eosinophils (%) (Auto) 0.0 % (0.0-3.0) Basophils (%) (Auto) 0.5 % (0.0-2.0) Sodium Level 140 MMOL/L (136-145) Potassium Level 3.9 MMOL/L (3.5-5.1) Chloride Level 104 MMOL/L (98-107) Carbon Dioxide Level 34 MMOL/L (21-32) H Anion Gap 2 mmol/L (5-15) L Blood Urea Nitrogen 14 mg/dL (7-18) Creatinine 0.8 MG/DL (0.55-1.30) Estimat Glomerular Filtration Rate mL/min (>60) Glucose Level 189 MG/DL (74-106) H Calcium Level 10.1 MG/DL (8.5-10.1) Total Bilirubin 0.7 MG/DL (0.2-1.0) Aspartate Amino Transf (AST/SGOT) 12 U/L (15-37) L Alanine Aminotransferase (ALT/SGPT) 17 U/L (12-78) Alkaline Phosphatase 81 U/L (46-116) C-Reactive Protein, Quantitative 2.5 mg/dL (0.00-0.90) H Total Protein 6.7 G/DL (6.4-8.2) Albumin 2.8 G/DL (3.4-5.0) L Globulin 3.9 g/dL Albumin/Globulin Ratio 0.7 (1.0-2.7) L Current Medications Medications (Trade) Dose Ordered Sig/Young Route PRN Reason Start Time Stop Time Status Last Admin Dose Admin Acetaminophen (Tylenol) 650 mg Q4H PRN ORAL fever 09/30/18 14:45 10/30/18 14:44 10/01/18 10:01 Albuterol/ Ipratropium (Albuterol/ Ipratropium) 3 ml Q4H PRN HHN Shortness of Breath 09/30/18 14:45 10/05/18 14:44 Cefepime HCl 1 gm/ Dextrose 55 ml @ 110 mls/hr Q24H IVPB 09/30/18 17:00 10/07/18 16:59 09/30/18 17:30 Dextrose (Dextrose 50%) 25 ml Q30M PRN IV Hypoglycemia 09/30/18 21:30 10/30/18 21:29 Dextrose (Dextrose 50%) 50 ml Q30M PRN IV Hypoglycemia 09/30/18 21:30 10/30/18 21:29 Furosemide 100 mg/ Dextrose 110 ml @ 11 mls/hr Q10H IV 10/01/18 12:00 10/31/18 11:59 10/01/18 12:27 Heparin Sodium (Porcine) (Heparin 5000 units/ml) 5,000 units EVERY 12 HOURS SUBQ 09/30/18 21:00 10/30/18 20:59 10/01/18 10:00 Insulin Aspart (NovoLOG) BEFORE MEALS AND HS SUBQ 10/01/18 06:30 10/31/18 06:29 10/01/18 11:54 Morphine Sulfate (Morphine Sulfate) 2 mg Q4H PRN IVP Moderate Pain (Pain Scale 4-6) 09/30/18 14:45 10/07/18 14:44 Ondansetron HCl (Zofran) 4 mg Q6H PRN IVP Nausea & Vomiting 09/30/18 14:45 10/30/18 14:44 Phenazopyridine HCl (Pyridium) 100 mg DAILYPRN PRN ORAL dysuria 09/30/18 14:45 10/30/18 14:44 Polyethylene Glycol (Miralax) 17 gm DAILYPRN PRN ORAL Constipation 09/30/18 14:45 10/30/18 14:44 Temazepam (Restoril) 15 mg HSPRN PRN ORAL Insomnia 09/30/18 14:45 10/07/18 14:44 Venlafaxine HCl (Effexor) 225 mg DAILY ORAL 10/01/18 09:00 10/31/18 08:59 10/01/18 09:58 Jose Manuel Dong MD Oct 01, 2018 15:46
[2018-10-01 16:00] VITALS: BP 119/55
[2018-10-01] MEDS: Cefepime 1gm in D5W 55ml IVPB SCH (16:56)
--- NOTE | 2018-10-01 19:39 | General Progress Note ---
Assessment/Plan Problem List: (1) Dementia ICD Codes: F03.90 - Unspecified dementia without behavioral disturbance SNOMED: 69307039 (2) Major depression ICD Codes: F32.9 - Major depressive disorder, single episode, unspecified SNOMED: 385972357 Status: stable Assessment/Plan venlafaxine 225mg qam. dc the qid Subjective Date patient seen: Oct 01, 2018 Neurologic/Psychiatric: Reports: anxiety, depressed, emotional problems Allergies: Coded Allergies: TAB INHIBITORS (Verified Allergy, Unknown, 06/29/18) Objective Last 24 Hour Vital Signs Date Time Temp Pulse Resp B/P (MAP) Pulse Ox O2 Delivery O2 Flow Rate FiO2 10/01/18 16:00 97.0 89 20 119/55 (76) 99 10/01/18 16:00 85 10/01/18 12:00 97.5 89 20 123/50 (74) 100 10/01/18 12:00 83 10/01/18 09:00 Nasal Cannula 2.0 10/01/18 08:00 98.4 106 20 141/69 (93) 97 10/01/18 08:00 106 10/01/18 04:00 97.9 108 20 152/83 (106) 96 10/01/18 04:00 101 10/01/18 00:00 98.0 99 20 149/84 (105) 96 10/01/18 00:00 101 09/30/18 21:00 Nasal Cannula 2.0 09/30/18 20:16 103 18 Nasal Cannula 2.0 28 09/30/18 20:15 Nasal Cannula 2.0 28 09/30/18 20:14 97 Nasal Cannula 2.0 28 09/30/18 20:00 97.0 105 22 148/88 (108) 96 09/30/18 20:00 101 Intake and Output 09/30/18 10/01/18 18:59 06:59 Intake Total 1000 ml Balance 1000 ml IV Total 1000 ml Other 0 ml # Voids 1 3 # Bowel Movements 1 Laboratory Tests 10/01/18 08:26: White Blood Count 8.9, Red Blood Count 4.76, Hemoglobin 14.0, Hematocrit 42.1, Mean Corpuscular Volume 88, Mean Corpuscular Hemoglobin 29.3, Mean Corpuscular Hemoglobin Concent 33.1, Red Cell Distribution Width 13.0, Platelet Count 239, Mean Platelet Volume 6.8, Neutrophils (%) (Auto) 78.6H, Lymphocytes (%) (Auto) 13.3L, Monocytes (%) (Auto) 7.6, Eosinophils (%) (Auto) 0.0, Basophils (%) (Auto ) 0.5, Sodium Level 140, Potassium Level 3.9, Chloride Level 104, Carbon Dioxide Level 34H, Anion Gap 2L, Blood Urea Nitrogen 14, Creatinine 0.8, Estimat Glomerular Filtration Rate , Glucose Level 189H, Calcium Level 10.1, Total Bilirubin 0.7, Aspartate Amino Transf (AST/SGOT) 12L, Alanine Aminotransferase (ALT/SGPT) 17, Alkaline Phosphatase 81, C-Reactive Protein, Quantitative 2.5H, Total Protein 6.7, Albumin 2.8L, Globulin 3.9, Albumin/ Globulin Ratio 0.7L Height (Feet): 5 Height (Inches): 4.00 Weight (Pounds): 170 General Appearance: no apparent distress, alert, confused Milton Schultz MD Oct 01, 2018 19:39
[2018-10-01 20:00] VITALS: BP 112/59
[2018-10-02] VITALS: BP 142/86
[2018-10-02 04:00] VITALS: BP 125/68
[2018-10-02] MEDS: NovoLOG Insulin Flexpen SUBQ SCH ×2 (06:11→12:46)
[2018-10-02 06:44] LABS: HEMATOCRIT 44.9 % (37.0-47.0); HEMOGLOBIN 15.1 G/DL (12.0-16.0); LYMPHOCYTES % (AUTO) 29.5 % (20.0-45.0); MEAN CORPUSCULAR VOLUME 90 FL (80-99); NEUTROPHILS % (AUTO) 58.5 % (45.0-75.0); PLATELET COUNT 229 K/UL (150-450); RED CELL DISTRIBUTION WIDTH 13.3 % (11.6-14.8); WHITE BLOOD COUNT 7.4 K/UL (4.8-10.8)
[2018-10-02 07:18] LABS: ALANINE AMINOTRANSFERASE 18 U/L (12-78); ALBUMIN 3.1 G/DL (3.4-5.0); ALBUMIN/GLOBULIN RATIO 0.8 (1.0-2.7); ALKALINE PHOSPHATASE 83 U/L (46-116); ANION GAP 2 mmol/L (5-15); ASPARTATE AMINO TRANSFERASE 15 U/L (15-37); BILIRUBIN,TOTAL 0.6 MG/DL (0.2-1.0); BLOOD UREA NITROGEN 16 mg/dL (7-18); CALCIUM 10.2 MG/DL (8.5-10.1); CARBON DIOXIDE 39 MMOL/L (21-32); CHLORIDE 103 MMOL/L (98-107); CREATININE 0.9 MG/DL (0.55-1.30); POTASSIUM 3.5 MMOL/L (3.5-5.1); SODIUM 145 MMOL/L (136-145)
[2018-10-02 08:00] VITALS: BP 122/68
[2018-10-02] MEDS: Venlafaxine HCl 37.5mg Tab ORAL SCH (09:05)
[2018-10-02] MEDS: Heparin 5000 units/ml inj SUBQ SCH (09:06)
--- NOTE | 2018-10-02 10:02 | Diagnostic Imaging Report ---
Indication: Dyspnea, cough Technique: One view of the chest Comparison: 09/30/2018 Findings: Large left pleural effusion appears somewhat improved. Smaller right pleural effusion also appears improved. There is decreased interstitial congestion. The heart borders are obscured, heart probably enlarged Impression: Improved bilateral left greater than right pleural effusions and decreased interstitial congestion, over 2 days
--- NOTE | 2018-10-02 10:26 | History and Physical ---
History of Present Illness General Date patient seen: Oct 02, 2018 Reason for Hospitalization: Dyspnea/Respdistress Present Illness HPI 78-year-old female with hx of dementia, CHF, EF of 40%, CAD, correction resident presented to ED for shortness of breath. Pt was wheezing and had low O2 sat. Started on breathing treatment by EMS.. Patient denies any fevers or chills. Denies chest pain. . No other aggravating relieving factors. Her CXR showed pulmonary edema and pleural effusion. Pt received steroids and abx in ER and admitted to telemetry for further for further management. Allergies: Coded Allergies: TAB INHIBITORS (Verified Allergy, Unknown, 06/29/18) Medication History Scheduled Amlodipine Besylate* (Amlodipine Besylate*), 10 MG ORAL DAILY, (Reported) Aspirin* (Aspir 81*), 81 MG ORAL DAILY, (Reported) Atorvastatin Calcium* (Lipitor*), 20 MG ORAL BEDTIME, (Reported) Bisacodyl* (Dulcolax*), 10 MG RECTAL DAILY, (Reported) Carvedilol* (Carvedilol*), 12.5 MG ORAL EVERY 12 HOURS, (Reported) Clonidine Hcl* (Catapres*), 0.1 MG ORAL EVERY 6 HOURS, (Reported) Cranberry Extract (Cranberry), 425 MG PO BID, (Reported) Docusate Sodium* (Docusate Sodium*), 100 MG ORAL DAILY, (Reported) Ferrous Sulfate* (Ferrous Sulfate*), 330 MG ORAL DAILY, (Reported) Folic Acid* (Folic Acid*), 1 MG ORAL DAILY, (Reported) Furosemide* (Lasix*), 20 MG ORAL EVERY 12 HOURS Furosemide* (Lasix*), 20 MG ORAL DAILY, (Reported) Insulin Glargine (Lantus), 10 SUBQ BEDTIME, (Reported) Ipratropium [place] (Atrovent Hfa), 12.9 GM IH Q4HR, (Reported) Latanoprost* (Xalatan*), 1 DROP LEFT EYE BEDTIME, (Reported) Losartan Potassium (Losartan Potassium), 25 MG ORAL DAILY, (Reported) Magnesium Hydroxide* (Milk Of Magnesia*), 30 ML ORAL DAILY, (Reported) Memantine Hcl* (Namenda*), 10 MG ORAL QHS, (Reported) Memantine Hcl* (Namenda*), 10 MG ORAL DAILY, (Reported) Metformin Hcl* (Metformin Hcl*), 500 MG ORAL TWICE A DAY, (Reported) Na Phos,M-B/Na Phos,Di-Ba* (Fleet Enema*), 133 ML RECTAL DAILY, (Reported) Oxcarbazepine* (Trileptal*), 150 MG PO QHS, (Reported) Pantoprazole* (Pantoprazole*), 40 MG ORAL DAILY, (Reported) Polyethylene Glycol 3350* (Miralax*), 17 GM ORAL DAILY, (Reported) Rivaroxaban (Xarelto*), 20 MG ORAL DAILY, (Reported) Thiamine Hcl* (Vitamin B-1*), 100 MG ORAL DAILY, (Reported) Venlafaxine Hcl* (Venlafaxine Hcl*), 75 MG ORAL QID, (Reported) Venlafaxine Hcl* (Effexor*), 75 MG ORAL QID, (Reported) Zinc Sulfate (Zinc Sulfate*), 220 MG ORAL DAILY, (Reported) Scheduled PRN Ipratropium [place] 0.5MG/2.5ML (Ipratropium [place] 0.5MG/2.5ML), 0.5 MG HHN Q6H PRN for Shortness of Breath, (Reported) Miscellaneous Medications Multivitamin/Iron/Folic Acid (Centrum Complete Multivit Tab), 1 EACH PO, ( Reported) Patient History Healthcare decision maker Resuscitation status Full Code Advanced Directive on File Review of Systems All Other Systems: negative except mentioned in HPI Physical Exam General Appearance: WD/WN Lines, tubes and drains: peripheral HEENT: normocephalic, atraumatic Neck: non-tender, supple Respiratory/Chest: chest wall non-tender, rhonchi - left, rhonchi - right Cardiovascular/Chest: normal peripheral pulses, normal rate Abdomen: normal bowel sounds, non tender Genitourinary/Rectal: normal genital exam Extremities: normal range of motion, non-pitting Last 24 Hour Vital Signs Date Time Temp Pulse Resp B/P (MAP) Pulse Ox O2 Delivery O2 Flow Rate FiO2 10/02/18 08:00 97.6 82 19 122/68 (86) 96 10/02/18 07:25 Nasal Cannula 2.0 28 10/02/18 07:25 91 18 Nasal Cannula 2.0 28 10/02/18 07:25 97 Nasal Cannula 2.0 28 10/02/18 04:00 97.3 87 20 125/68 (87) 95 10/02/18 04:00 86 10/02/18 00:00 97.0 79 20 142/86 (104) 99 10/02/18 00:00 104 10/01/18 21:00 Nasal Cannula 2.0 28 10/01/18 21:00 98 Nasal Cannula 2.0 28 10/01/18 21:00 Nasal Cannula 2.0 10/01/18 20:59 103 16 Nasal Cannula 2.0 28 10/01/18 20:00 84 10/01/18 20:00 97.5 88 20 112/59 (76) 100 10/01/18 16:00 97.0 89 20 119/55 (76) 99 10/01/18 16:00 85 10/01/18 12:00 97.5 89 20 123/50 (74) 100 10/01/18 12:00 83 Intake and Output 10/01/18 10/02/18 19:00 07:00 Intake Total 661.5 ml 126 ml Output Total 300 ml 1700 ml Balance 361.5 ml -1574 ml Intake Oral 480 ml IV Total 181.5 ml 126 ml Output Urine Total 300 ml 1700 ml # Voids 1 3 Laboratory Tests Test 10/02/18 05:15 White Blood Count 7.4 K/UL (4.8-10.8) Red Blood Count 5.00 M/UL (4.20-5.40) Hemoglobin 15.1 G/DL (12.0-16.0) Hematocrit 44.9 % (37.0-47.0) Mean Corpuscular Volume 90 FL (80-99) Mean Corpuscular Hemoglobin 30.1 PG (27.0-31.0) Mean Corpuscular Hemoglobin Concent 33.6 G/DL (32.0-36.0) Red Cell Distribution Width 13.3 % (11.6-14.8) Platelet Count 229 K/UL (150-450) Mean Platelet Volume 6.1 FL (6.5-10.1) L Neutrophils (%) (Auto) 58.5 % (45.0-75.0) Lymphocytes (%) (Auto) 29.5 % (20.0-45.0) Monocytes (%) (Auto) 10.0 % (1.0-10.0) Eosinophils (%) (Auto) 1.0 % (0.0-3.0) Basophils (%) (Auto) 1.0 % (0.0-2.0) Sodium Level 145 MMOL/L (136-145) Potassium Level 3.5 MMOL/L (3.5-5.1) Chloride Level 103 MMOL/L (98-107) Carbon Dioxide Level 39 MMOL/L (21-32) H Anion Gap 2 mmol/L (5-15) L Blood Urea Nitrogen 16 mg/dL (7-18) Creatinine 0.9 MG/DL (0.55-1.30) Estimat Glomerular Filtration Rate mL/min (>60) Glucose Level 169 MG/DL (74-106) H Calcium Level 10.2 MG/DL (8.5-10.1) H Total Bilirubin 0.6 MG/DL (0.2-1.0) Aspartate Amino Transf (AST/SGOT) 15 U/L (15-37) Alanine Aminotransferase (ALT/SGPT) 18 U/L (12-78) Alkaline Phosphatase 83 U/L (46-116) Pro-B-Type Natriuretic Peptide 6707 pg/mL (0-125) H Total Protein 7.2 G/DL (6.4-8.2) Albumin 3.1 G/DL (3.4-5.0) L Globulin 4.1 g/dL Albumin/Globulin Ratio 0.8 (1.0-2.7) L Height (Feet): 5 Height (Inches): 4.00 Weight (Pounds): 170 Medications Current Medications Medications (Trade) Dose Ordered Sig/Young Route PRN Reason Start Time Stop Time Status Last Admin Dose Admin Acetaminophen (Tylenol) 650 mg Q4H PRN ORAL fever 09/30/18 14:45 10/30/18 14:44 10/01/18 10:01 Albuterol/ Ipratropium (Albuterol/ Ipratropium) 3 ml Q4H PRN HHN Shortness of Breath 09/30/18 14:45 10/05/18 14:44 Cefepime HCl 1 gm/ Dextrose 55 ml @ 110 mls/hr Q24H IVPB 09/30/18 17:00 10/07/18 16:59 10/01/18 16:56 Dextrose (Dextrose 50%) 25 ml Q30M PRN IV Hypoglycemia 09/30/18 21:30 10/30/18 21:29 Dextrose (Dextrose 50%) 50 ml Q30M PRN IV Hypoglycemia 09/30/18 21:30 10/30/18 21:29 Furosemide 100 mg/ Dextrose 110 ml @ 11 mls/hr Q10H IV 10/01/18 12:00 10/31/18 11:59 10/02/18 09:04 Heparin Sodium (Porcine) (Heparin 5000 units/ml) 5,000 units EVERY 12 HOURS SUBQ 09/30/18 21:00 10/30/18 20:59 10/02/18 09:06 Insulin Aspart (NovoLOG) BEFORE MEALS AND HS SUBQ 10/01/18 06:30 10/31/18 06:29 10/02/18 06:11 Morphine Sulfate (Morphine Sulfate) 2 mg Q4H PRN IVP Moderate Pain (Pain Scale 4-6) 09/30/18 14:45 10/07/18 14:44 Ondansetron HCl (Zofran) 4 mg Q6H PRN IVP Nausea & Vomiting 09/30/18 14:45 10/30/18 14:44 Phenazopyridine HCl (Pyridium) 100 mg DAILYPRN PRN ORAL dysuria 09/30/18 14:45 10/30/18 14:44 Polyethylene Glycol (Miralax) 17 gm DAILYPRN PRN ORAL Constipation 09/30/18 14:45 10/30/18 14:44 Temazepam (Restoril) 15 mg HSPRN PRN ORAL Insomnia 09/30/18 14:45 10/07/18 14:44 Venlafaxine HCl (Effexor) 225 mg DAILY ORAL 10/01/18 09:00 10/31/18 08:59 10/02/18 09:05 Assessment/Plan Problem List: (1) Acute respiratory failure ICD Codes: J96.00 - Acute respiratory failure, unspecified whether with hypoxia or hypercapnia SNOMED: 33748240 (2) Pulmonary edema ICD Codes: J81.1 - Chronic pulmonary edema SNOMED: 99533818 Qualifiers: Qualified Codes: J81.0 - Acute pulmonary edema (3) Heart failure, left, 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% ICD Codes: I50.1 - Left ventricular failure, unspecified SNOMED: 44120371 (4) CAD (coronary artery disease) ICD Codes: I25.10 - Atherosclerotic heart disease of [place] coronary artery without angina pectoris SNOMED: 66944425 (5) COPD (chronic obstructive pulmonary disease) ICD Codes: J44.9 - Chronic obstructive pulmonary disease, unspecified SNOMED: 42027079 Qualifiers: Qualified Codes: J44.9 - Chronic obstructive pulmonary disease, unspecified (6) Dementia ICD Codes: F03.90 - Unspecified dementia without behavioral disturbance SNOMED: 41673036 (7) Diabetes mellitus ICD Codes: E11.9 - Type 2 diabetes mellitus without complications SNOMED: 64744291 Assessment/Plan respiratory treatment echo optimize cardiac meds diuretics sliding scale measure intake and output dvt prophylaxis Reconsider Code status, because of recurrent admission, dementia, and CHF, poor quality of life social service consult Mariah Locke MD Oct 02, 2018 10:25
--- NOTE | 2018-10-02 10:27 | Pulmonology Progress Note ---
Assessment/Plan Problems: (1) Acute respiratory failure (2) Pulmonary edema (3) Heart failure, left, 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% (4) CAD (coronary artery disease) (5) COPD (chronic obstructive pulmonary disease) (6) Dementia (7) Diabetes mellitus Assessment/Plan diuresing well respiratory treatment echo optimize cardiac meds diuretics sliding scale measure intake and output dvt prophylaxis social service consult Subjective ROS Limited/Unobtainable: No Constitutional: Reports: no symptoms HEENT: Repors: no symptoms Respiratory: Reports: no symptoms Allergies: Coded Allergies: TAB INHIBITORS (Verified Allergy, Unknown, 06/29/18) Objective Last 24 Hour Vital Signs Date Time Temp Pulse Resp B/P (MAP) Pulse Ox O2 Delivery O2 Flow Rate FiO2 10/02/18 08:00 97.6 82 19 122/68 (86) 96 10/02/18 07:25 Nasal Cannula 2.0 28 10/02/18 07:25 91 18 Nasal Cannula 2.0 28 10/02/18 07:25 97 Nasal Cannula 2.0 28 10/02/18 04:00 97.3 87 20 125/68 (87) 95 10/02/18 04:00 86 10/02/18 00:00 97.0 79 20 142/86 (104) 99 10/02/18 00:00 104 10/01/18 21:00 Nasal Cannula 2.0 28 10/01/18 21:00 98 Nasal Cannula 2.0 28 10/01/18 21:00 Nasal Cannula 2.0 10/01/18 20:59 103 16 Nasal Cannula 2.0 28 10/01/18 20:00 84 10/01/18 20:00 97.5 88 20 112/59 (76) 100 10/01/18 16:00 97.0 89 20 119/55 (76) 99 10/01/18 16:00 85 10/01/18 12:00 97.5 89 20 123/50 (74) 100 10/01/18 12:00 83 Intake and Output 10/01/18 10/02/18 19:00 07:00 Intake Total 661.5 ml 126 ml Output Total 300 ml 1700 ml Balance 361.5 ml -1574 ml Intake Oral 480 ml IV Total 181.5 ml 126 ml Output Urine Total 300 ml 1700 ml # Voids 1 3 General Appearance: WD/WN HEENT: normocephalic, atraumatic Respiratory/Chest: chest wall non-tender, lungs clear Breasts: no masses Cardiovascular: normal peripheral pulses Abdomen: normal bowel sounds, soft, non tender, no scars Extremities: no cyanosis Neurologic/Psychiatric: no motor/sensory deficits Microbiology Date/Time Source Procedure Growth Status 09/30/18 13:05 Blood Blood Culture - Preliminary NO GROWTH AFTER 24 HOURS Resulted 09/30/18 12:50 Blood Blood Culture - Preliminary NO GROWTH AFTER 24 HOURS Resulted 09/30/18 13:30 Nasal Nares Influenza Types A,B Antigen (AAKASH) - Final Complete 10/01/18 06:30 Indwelling Cath Urine Culture - Preliminary NO GROWTH AFTER 24 HOURS Resulted 09/30/18 06:30 Urine,Clean Catch Urine Culture - Preliminary Gram Negative Bacillus 1 Resulted 09/30/18 13:30 Rectum - Preliminary Resulted Laboratory Tests 10/02/18 05:15: White Blood Count 7.4, Red Blood Count 5.00, Hemoglobin 15.1, Hematocrit 44.9, Mean Corpuscular Volume 90, Mean Corpuscular Hemoglobin 30.1, Mean Corpuscular Hemoglobin Concent 33.6, Red Cell Distribution Width 13.3, Platelet Count 229, Mean Platelet Volume 6.1L, Neutrophils (%) (Auto) 58.5, Lymphocytes (%) (Auto) 29.5, Monocytes (%) (Auto) 10.0, Eosinophils (%) (Auto) 1.0, Basophils (%) (Auto ) 1.0, Sodium Level 145, Potassium Level 3.5, Chloride Level 103, Carbon Dioxide Level 39H, Anion Gap 2L, Blood Urea Nitrogen 16, Creatinine 0.9, Estimat Glomerular Filtration Rate , Glucose Level 169H, Calcium Level 10.2H, Total Bilirubin 0.6, Aspartate Amino Transf (AST/SGOT) 15, Alanine Aminotransferase (ALT/SGPT) 18, Alkaline Phosphatase 83, Pro-B-Type Natriuretic Peptide 6707H, Total Protein 7.2, Albumin 3.1L, Globulin 4.1, Albumin/Globulin Ratio 0.8L Current Medications Medications (Trade) Dose Ordered Sig/Young Route PRN Reason Start Time Stop Time Status Last Admin Dose Admin Acetaminophen (Tylenol) 650 mg Q4H PRN ORAL fever 09/30/18 14:45 10/30/18 14:44 10/01/18 10:01 Albuterol/ Ipratropium (Albuterol/ Ipratropium) 3 ml Q4H PRN HHN Shortness of Breath 09/30/18 14:45 10/05/18 14:44 Cefepime HCl 1 gm/ Dextrose 55 ml @ 110 mls/hr Q24H IVPB 09/30/18 17:00 10/07/18 16:59 10/01/18 16:56 Dextrose (Dextrose 50%) 25 ml Q30M PRN IV Hypoglycemia 09/30/18 21:30 10/30/18 21:29 Dextrose (Dextrose 50%) 50 ml Q30M PRN IV Hypoglycemia 09/30/18 21:30 10/30/18 21:29 Furosemide 100 mg/ Dextrose 110 ml @ 11 mls/hr Q10H IV 10/01/18 12:00 10/31/18 11:59 10/02/18 09:04 Heparin Sodium (Porcine) (Heparin 5000 units/ml) 5,000 units EVERY 12 HOURS SUBQ 09/30/18 21:00 10/30/18 20:59 10/02/18 09:06 Insulin Aspart (NovoLOG) BEFORE MEALS AND HS SUBQ 10/01/18 06:30 10/31/18 06:29 10/02/18 06:11 Morphine Sulfate (Morphine Sulfate) 2 mg Q4H PRN IVP Moderate Pain (Pain Scale 4-6) 09/30/18 14:45 10/07/18 14:44 Ondansetron HCl (Zofran) 4 mg Q6H PRN IVP Nausea & Vomiting 09/30/18 14:45 10/30/18 14:44 Phenazopyridine HCl (Pyridium) 100 mg DAILYPRN PRN ORAL dysuria 09/30/18 14:45 10/30/18 14:44 Polyethylene Glycol (Miralax) 17 gm DAILYPRN PRN ORAL Constipation 09/30/18 14:45 10/30/18 14:44 Temazepam (Restoril) 15 mg HSPRN PRN ORAL Insomnia 09/30/18 14:45 10/07/18 14:44 Venlafaxine HCl (Effexor) 225 mg DAILY ORAL 10/01/18 09:00 10/31/18 08:59 10/02/18 09:05 Mariah Locke MD Oct 02, 2018 10:27
[2018-10-02] MEDS ORDERED: FUROSEMIDE40 MG ORAL (10:39)
--- NOTE | 2018-10-02 10:48 | Infectious Diseases Prog Note ---
Assessment/Plan Assessment/Plan ASSESSMENT: Shortness of breath/probable pneumonia CXR: Improved bilateral left greater than right pleural effusions and decreased interstitial congestion, over 2 days Bilateral pleural effusion. Influenza screen negative. UCx : 100K GNR Colonizer Hypertension CHF GERD. Dementia Seizure disorder Psych history (question exact nature of that). History of pleural effusion, status post thoracocentesis in June 2018 (no evidence of exudates, no evidence of infectious process) PLAN: Continue the patient on IV cefepime d# 3/ 7 09/30 Sp Vancomycin d# 1 Monitor CBC Monitor BMP Monitor cultures (blood, urine, sputum) Monitor CXR need for Thoracocentesis: defer to Pulmonology rewards consultant Subjective Allergies: Coded Allergies: TAB INHIBITORS (Verified Allergy, Unknown, 06/29/18) Subjective comfortable Objective Vital Signs Last 24 Hour Vital Signs Date Time Temp Pulse Resp B/P (MAP) Pulse Ox O2 Delivery O2 Flow Rate FiO2 10/02/18 08:00 97.6 82 19 122/68 (86) 96 10/02/18 07:25 Nasal Cannula 2.0 28 10/02/18 07:25 91 18 Nasal Cannula 2.0 28 10/02/18 07:25 97 Nasal Cannula 2.0 28 10/02/18 04:00 97.3 87 20 125/68 (87) 95 10/02/18 04:00 86 10/02/18 00:00 97.0 79 20 142/86 (104) 99 10/02/18 00:00 104 10/01/18 21:00 Nasal Cannula 2.0 28 10/01/18 21:00 98 Nasal Cannula 2.0 28 10/01/18 21:00 Nasal Cannula 2.0 10/01/18 20:59 103 16 Nasal Cannula 2.0 28 10/01/18 20:00 84 10/01/18 20:00 97.5 88 20 112/59 (76) 100 10/01/18 16:00 97.0 89 20 119/55 (76) 99 10/01/18 16:00 85 10/01/18 12:00 97.5 89 20 123/50 (74) 100 10/01/18 12:00 83 Height (Feet): 5 Height (Inches): 4.00 Weight (Pounds): 170 HEENT: anicteric Respiratory/Chest: no accessory muscle use Cardiovascular: regularly irregular Abdomen: no organomegaly Microbiology Date/Time Source Procedure Growth Status 09/30/18 13:05 Blood Blood Culture - Preliminary NO GROWTH AFTER 24 HOURS Resulted 09/30/18 12:50 Blood Blood Culture - Preliminary NO GROWTH AFTER 24 HOURS Resulted 09/30/18 13:30 Nasal Nares Influenza Types A,B Antigen (AAKASH) - Final Complete 10/01/18 06:30 Indwelling Cath Urine Culture - Preliminary NO GROWTH AFTER 24 HOURS Resulted 09/30/18 06:30 Urine,Clean Catch Urine Culture - Preliminary Gram Negative Bacillus 1 Resulted 09/30/18 13:30 Rectum - Preliminary Resulted Laboratory Tests Test 10/02/18 05:15 White Blood Count 7.4 K/UL (4.8-10.8) Red Blood Count 5.00 M/UL (4.20-5.40) Hemoglobin 15.1 G/DL (12.0-16.0) Hematocrit 44.9 % (37.0-47.0) Mean Corpuscular Volume 90 FL (80-99) Mean Corpuscular Hemoglobin 30.1 PG (27.0-31.0) Mean Corpuscular Hemoglobin Concent 33.6 G/DL (32.0-36.0) Red Cell Distribution Width 13.3 % (11.6-14.8) Platelet Count 229 K/UL (150-450) Mean Platelet Volume 6.1 FL (6.5-10.1) L Neutrophils (%) (Auto) 58.5 % (45.0-75.0) Lymphocytes (%) (Auto) 29.5 % (20.0-45.0) Monocytes (%) (Auto) 10.0 % (1.0-10.0) Eosinophils (%) (Auto) 1.0 % (0.0-3.0) Basophils (%) (Auto) 1.0 % (0.0-2.0) Sodium Level 145 MMOL/L (136-145) Potassium Level 3.5 MMOL/L (3.5-5.1) Chloride Level 103 MMOL/L (98-107) Carbon Dioxide Level 39 MMOL/L (21-32) H Anion Gap 2 mmol/L (5-15) L Blood Urea Nitrogen 16 mg/dL (7-18) Creatinine 0.9 MG/DL (0.55-1.30) Estimat Glomerular Filtration Rate mL/min (>60) Glucose Level 169 MG/DL (74-106) H Calcium Level 10.2 MG/DL (8.5-10.1) H Total Bilirubin 0.6 MG/DL (0.2-1.0) Aspartate Amino Transf (AST/SGOT) 15 U/L (15-37) Alanine Aminotransferase (ALT/SGPT) 18 U/L (12-78) Alkaline Phosphatase 83 U/L (46-116) Pro-B-Type Natriuretic Peptide 6707 pg/mL (0-125) H Total Protein 7.2 G/DL (6.4-8.2) Albumin 3.1 G/DL (3.4-5.0) L Globulin 4.1 g/dL Albumin/Globulin Ratio 0.8 (1.0-2.7) L Current Medications Medications (Trade) Dose Ordered Sig/Young Route PRN Reason Start Time Stop Time Status Last Admin Dose Admin Acetaminophen (Tylenol) 650 mg Q4H PRN ORAL fever 09/30/18 14:45 10/30/18 14:44 10/01/18 10:01 Albuterol/ Ipratropium (Albuterol/ Ipratropium) 3 ml Q4H PRN HHN Shortness of Breath 09/30/18 14:45 10/05/18 14:44 Cefepime HCl 1 gm/ Dextrose 55 ml @ 110 mls/hr Q24H IVPB 09/30/18 17:00 10/07/18 16:59 10/01/18 16:56 Dextrose (Dextrose 50%) 25 ml Q30M PRN IV Hypoglycemia 09/30/18 21:30 10/30/18 21:29 Dextrose (Dextrose 50%) 50 ml Q30M PRN IV Hypoglycemia 09/30/18 21:30 10/30/18 21:29 Furosemide 100 mg/ Dextrose 110 ml @ 11 mls/hr Q10H IV 10/01/18 12:00 10/31/18 11:59 10/02/18 09:04 Heparin Sodium (Porcine) (Heparin 5000 units/ml) 5,000 units EVERY 12 HOURS SUBQ 09/30/18 21:00 10/30/18 20:59 10/02/18 09:06 Insulin Aspart (NovoLOG) BEFORE MEALS AND HS SUBQ 10/01/18 06:30 10/31/18 06:29 10/02/18 06:11 Morphine Sulfate (Morphine Sulfate) 2 mg Q4H PRN IVP Moderate Pain (Pain Scale 4-6) 09/30/18 14:45 10/07/18 14:44 Ondansetron HCl (Zofran) 4 mg Q6H PRN IVP Nausea & Vomiting 09/30/18 14:45 10/30/18 14:44 Phenazopyridine HCl (Pyridium) 100 mg DAILYPRN PRN ORAL dysuria 09/30/18 14:45 10/30/18 14:44 Polyethylene Glycol (Miralax) 17 gm DAILYPRN PRN ORAL Constipation 09/30/18 14:45 10/30/18 14:44 Temazepam (Restoril) 15 mg HSPRN PRN ORAL Insomnia 09/30/18 14:45 10/07/18 14:44 Venlafaxine HCl (Effexor) 225 mg DAILY ORAL 10/01/18 09:00 10/31/18 08:59 10/02/18 09:05 Jose Manuel Dong MD Oct 02, 2018 10:48
--- NOTE | 2018-10-02 10:53 | General Progress Note ---
Assessment/Plan Problem List: (1) Dementia ICD Codes: F03.90 - Unspecified dementia without behavioral disturbance SNOMED: 15068255 (2) Major depression ICD Codes: F32.9 - Major depressive disorder, single episode, unspecified SNOMED: 944557139 Status: stable, progressing Assessment/Plan venlafaxine 225mg qam. dc the qid Subjective Neurologic/Psychiatric: Reports: anxiety, depressed Allergies: Coded Allergies: TAB INHIBITORS (Verified Allergy, Unknown, 06/29/18) Objective Last 24 Hour Vital Signs Date Time Temp Pulse Resp B/P (MAP) Pulse Ox O2 Delivery O2 Flow Rate FiO2 10/02/18 08:00 97.6 82 19 122/68 (86) 96 10/02/18 07:25 Nasal Cannula 2.0 28 10/02/18 07:25 91 18 Nasal Cannula 2.0 28 10/02/18 07:25 97 Nasal Cannula 2.0 28 10/02/18 04:00 97.3 87 20 125/68 (87) 95 10/02/18 04:00 86 10/02/18 00:00 97.0 79 20 142/86 (104) 99 10/02/18 00:00 104 10/01/18 21:00 Nasal Cannula 2.0 28 10/01/18 21:00 98 Nasal Cannula 2.0 28 10/01/18 21:00 Nasal Cannula 2.0 10/01/18 20:59 103 16 Nasal Cannula 2.0 28 10/01/18 20:00 84 10/01/18 20:00 97.5 88 20 112/59 (76) 100 10/01/18 16:00 97.0 89 20 119/55 (76) 99 10/01/18 16:00 85 10/01/18 12:00 97.5 89 20 123/50 (74) 100 10/01/18 12:00 83 Intake and Output 10/01/18 10/02/18 19:00 07:00 Intake Total 661.5 ml 126 ml Output Total 300 ml 1700 ml Balance 361.5 ml -1574 ml Intake Oral 480 ml IV Total 181.5 ml 126 ml Output Urine Total 300 ml 1700 ml # Voids 1 3 Laboratory Tests 10/02/18 05:15: White Blood Count 7.4, Red Blood Count 5.00, Hemoglobin 15.1, Hematocrit 44.9, Mean Corpuscular Volume 90, Mean Corpuscular Hemoglobin 30.1, Mean Corpuscular Hemoglobin Concent 33.6, Red Cell Distribution Width 13.3, Platelet Count 229, Mean Platelet Volume 6.1L, Neutrophils (%) (Auto) 58.5, Lymphocytes (%) (Auto) 29.5, Monocytes (%) (Auto) 10.0, Eosinophils (%) (Auto) 1.0, Basophils (%) (Auto ) 1.0, Sodium Level 145, Potassium Level 3.5, Chloride Level 103, Carbon Dioxide Level 39H, Anion Gap 2L, Blood Urea Nitrogen 16, Creatinine 0.9, Estimat Glomerular Filtration Rate , Glucose Level 169H, Calcium Level 10.2H, Total Bilirubin 0.6, Aspartate Amino Transf (AST/SGOT) 15, Alanine Aminotransferase (ALT/SGPT) 18, Alkaline Phosphatase 83, Pro-B-Type Natriuretic Peptide 6707H, Total Protein 7.2, Albumin 3.1L, Globulin 4.1, Albumin/Globulin Ratio 0.8L Height (Feet): 5 Height (Inches): 4.00 Weight (Pounds): 170 General Appearance: no apparent distress, alert, confused Milton Schultz MD Oct 02, 2018 10:53
[2018-10-02 12:00] VITALS: BP 125/72
[2018-10-02] MEDS ORDERED: CEFEPIME-D1 GM/50 ML IVPB (12:42)
[2018-10-02] MEDS ORDERED: NS 275ml ONE (15:34)
[2018-10-02] MEDS ORDERED: Tubing IV Secondary IV ONE (15:34)
--- NOTE | 2018-10-02 16:40 | Cardiology Report ---
APPROVED REPORT EKG Measurement Heart [id number] Normal sinus rhythm with sinus arrhythmia Left axis deviation Left bundle branch block Abnormal ECG
--- NOTE | 2018-10-05 08:50 | Discharge Summary ---
Discharge Summary Discharge Summary _ DATE OF ADMISSION: 09/30/2018 DATE OF DISCHARGE: 10/02/2018 REASON FOR ADMISSION: 78 years old female, resident of [facility] facility, with past medical history of congestive heart failure with ejection fraction of 40%, coronary artery disease, COPD, diabetes, dementia, presented to emergency department for shortness of breath. Patient started on breathing treatment and was placed on 100% non-rebreathing mask by paramedics. Patient denied fever, chills , chest pain . Upon evaluation patient was tachycardic, tachypneic and hypoxic. . ABG was done on 6 L oxygen via nasal cannula and revealed CO2 retention as well as O2 sat of 92% Troponin was negative. Pro BNP 7886. EKG revealed normal sinus rhythm with sinus arrhythmia. Left bundle branch block and left axis deviation , but no acute ischemic changes. Chest x-ray revealed pulmonary edema and pleural effusion. Patient was given breathing treatment, steroid, antibioti and admitted to telemetry floor for further management with diagnosis of acute respiratory failure. pulmonary edema, CHF, COPD. CONSULTANTS: ID specialist Dr. Dong psychiatrist [facility] COURSE: Patient admitted to telemetry floor. Patient started on Lasix drip with close monitoring of volumes and cardiorenal parameters. Supplemental oxygen provided as needed to keep pulse oximetry above 92%. Pulmonary toilet with bronchodilator provided. Patient was placed on DVT prophylaxis. Patient had ECHO done on previous admission, which revealed ejection fraction of 40% with anteroseptal wall akinesia and septal wall dyskinesia. At that time production illustrator seen the patient and anti-failure medication regimen was optimized. Follow-up chest x-ray revealed improvement over the 2 days. Pro BNP was trending down. Patient started on empiric antibiotic. Urine culture revealed Escherichia coli , sputum culture revealed MRSA . Blood culture were negative . Influenza screen test was negative. Per infectious disease specialist, urine culture was colonized. Patient had no urinary symptoms. Patient had a history of pleural effusion , status post thoracentesis in June 2018 without evidence of infectious process. Antibiotic continued as per infectious disease specialist recommendations. Patient was discharged on IV antibiotics to complete the course at the facility. Blood sugar was managed with sliding scale of insulin. Blood pressure was managed with calcium channel carmela and remained stable. Patient was able to be weaned down to oxygen 2 L via nasal cannula with stable saturation. No signs of respiratory distress upon discharge. Psychiatrist followed patient and diagnosed patient with dementia and major depression. Antidepressive regimen was optimized. Patient clinically improved and was stable for discharge to prison facility for continuation of care FINAL DIAGNOSES: Acute respiratory failure Pulmonary edema Congestive heart failure, left, with ejection fraction 40% Coronary artery disease COPD Diabetes mellitus Dementia Hypertension Pleural effusion with prior history of thoracentesis DISCHARGE MEDICATIONS: See Medication Reconciliation list. DISCHARGE INSTRUCTIONS: Patient was discharged to the prison facility. Follow up with medical doctor at the facility. I have been assigned to dictate discharge summary for this account. I was not involved in the patient's management. Kamryn Alcazar NP Oct 05, 2018 08:50
== END 2018-10-02 15:30 | DRG 193 ==
LOC: EDBD 12:49 → EDBEDREQ 13:08 → EMR 13:40 → 2E 13:57 → EDBEDREQ 14:44
DX: J18.9 Pneumonia, unspecified organism (principal); J96.00 Acute respiratory failure, unspecified whether with hypoxia or hypercapnia; I50.1 Left ventricular failure, unspecified; I11.0 Hypertensive heart disease with heart failure; I25.10 Atherosclerotic heart disease of native coronary artery without angina pectoris; J44.9 Chronic obstructive pulmonary disease, unspecified; E11.9 Type 2 diabetes mellitus without complications; F03.90 Unspecified dementia, unspecified severity, without behavioral disturbance, psychotic disturbance, mood disturbance, and anxiety; Z88.8 Allergy status to other drugs, medicaments and biological substances; K21.9 Gastro-esophageal reflux disease without esophagitis; Z87.891 Personal history of nicotine dependence; F32.9 Major depressive disorder, single episode, unspecified; I44.7 Left bundle-branch block, unspecified; Z79.4 Long term (current) use of insulin
CPT/HCPCS: 36415; 36600; 71045; 80053; 81001; 81003; 82550; 82553; 82803; 82962; 83880; 84484; 85025; 86140; 86710; 87040; 87070; 87081; 87086; 87181; 87205; 93005; 94640; 94664; 94760; 96374; 99285; J1815

== ENCOUNTER 2018-10-17 21:47 | Emergency (ER) | payer MEDICARE, OTHER ==
[~2018-10-17] VITALS: Ht 172.7 cm; Wt 81.6 kg
[~2018-10-17 21:47] MED LIST changes: +ASPIR 8181 MG ORAL; +ATROVENT HFA12.9 GM IH; +BISACODYL5 MG RECTAL; +CARVEDILOL12.5 MG ORAL; +CEFEPIME-D1 GM/50 ML IVPB; +CRANBERRY425 MG PO; +DOCUSATE SODIU100 MG ORAL; +FERROUS SULFAT325 MG ORAL; +FLEET ENEMA133 ML RECTAL; +FOLIC ACID1 MG ORAL; +FUROSEMIDE40 MG ORAL; +IPRATROPIU0.2 MG/1 M HHN; +LANTUS SOL100 UNIT/1 SUBQ; +LIPITOR20 MG ORAL; +LOSARTAN POTAS100 MG ORAL; +MILK OF MA400 MG/51 ORAL; +MIRALAX17 G2 ORAL; +VENLAFAXINE HCL25 MG ORAL; +ZINC SULFATE220 M1 ORAL
--- NOTE | 2018-10-17 21:55 | Emergency Room Report ---
History of Present Illness Present Illness HPI 78F SN[facility] patient d/c here two weeks ago after two day stay for CHF/pulm edema, CO2 retention. Completed full IV antibiotic course between hospital/SNF. Referred here for "sob" although only paperwork sent was old records. No report of fever, cough, lowered pulse ox. Pt. chronically on oxygen/COPD. DATE OF ADMISSION: 09/30/2018 DATE OF DISCHARGE: 10/02/2018 congestive heart failure with ejection fraction of 40%, coronary artery disease , COPD, diabetes, Upon evaluation patient was tachycardic, tachypneic and hypoxic. . ABG was done on 6 L oxygen via nasal cannula and revealed CO2 retention as well as O2 sat of 92% Troponin was negative. Pro BNP 7886. EKG revealed normal sinus rhythm with sinus arrhythmia. Left bundle branch block and left axis deviation , but no acute ischemic changes. Chest x-ray revealed pulmonary edema and pleural effusion. Patient was given breathing treatment, steroid, antibiotic and admitted to telemetry floor for further management with diagnosis of acute respiratory failure. pulmonary edema, CHF, COPD. CONSULTANTS: ID specialist Dr. Dong psychiatrist Allergies: Coded Allergies: TAB INHIBITORS (Verified Allergy, Unknown, 06/29/18) Patient History Limited by: age Nursing Documentation-PMH Hx Cardiac Problems: Yes - CHF Hx Hypertension: Yes - Thrombosis of left femoral vein Hx COPD: Yes Hx Diabetes: Yes Hx Cancer: No Hx Gastrointestinal Problems: Yes - GERD Hx Neurological Problems: Yes - Generalized muscle weakness, Dementia Hx Dementia: Yes Hx Seizures: Yes Hx Neurologic Surgery: No Review of Systems All Other Systems: limited Physical Exam General Appearance: no apparent distress Head: normocephalic, atraumatic ENT: normal voice, moist mucus membranes Neck: supple Respiratory: no respiratory distress Cardiovascular #1: regular rate, rhythm Gastrointestinal: normal bowel sounds, non tender, soft Musculoskeletal: other - no edema Neurologic: other - dementia; johnston spont, nonverbal Psychiatric: other - cannot evaluate Skin: no rash Medical Decision Making Diagnostic Impression: Primary Impression: Pleural effusion Additional Impression: Dementia ER Course large left effusion; probably unchanged from prior (worse technique tonight) but could be somewhat increased. however clinically no distress. not hypoxic, not tachycardic, not tachypneic, no cough, no fever. pt. is 98%-99% on 2 liters (baseline) labs unremarkable (lactic 2 unremarkable) EKG unchanged recently finished full course IV antibiotics EKG Diagnostic Results EKG Time: 23:15 EP Interpretation: NSR 97; LAD, LBBB Rate: normal Rhythm: NSR ST Segments: no acute changes Rhythm Strip Diag. Results Rhythm Strip Time: 23:16 EP Interpretation: yes Rhythm: NSR Chest X-Ray Diagnostic Results Chest X-Ray Diagnostic Results : Chest X-Ray Ordered: Yes # of Views/Limited/Complete: 1 View Indication: Shortness of Breath EP Interpretation: Yes Interpretation: no pneumothorax, other - large left pleural effusion, smaller right effusion Impression: Other Status: unchanged Disposition: HOME, SELF-CARE Condition: Stable Patient Instructions: Shortness of Breath, [id number] Saravanan Moses M.D. Oct 17, 2018 21:55
[2018-10-17 22:00] VITALS: BP 146/86
[2018-10-17 22:20] LABS: BASOPHILS % (AUTO) 0.8 % (0.0-2.0); EOSINOPHILS % (AUTO) 1.8 % (0.0-3.0); HEMATOCRIT 43.8 % (37.0-47.0); LYMPHOCYTES % (AUTO) 18.1 % (20.0-45.0); MEAN CORPUSCULAR VOLUME 90 FL (80-99); MONOCYTES % (AUTO) 6.9 % (1.0-10.0); NEUTROPHILS % (AUTO) 72.5 % (45.0-75.0); PLATELET COUNT 234 K/UL (150-450); RED BLOOD COUNT 4.87 M/UL (4.20-5.40); RED CELL DISTRIBUTION WIDTH 13.4 % (11.6-14.8); WHITE BLOOD COUNT 7.9 K/UL (4.8-10.8)
[2018-10-17 22:33] LABS: ANION GAP 6 mmol/L (5-15); BLOOD UREA NITROGEN 23 mg/dL (7-18); CARBON DIOXIDE 35 MMOL/L (21-32); CHLORIDE 98 MMOL/L (98-107); CREATININE 0.9 MG/DL (0.55-1.30); POTASSIUM 4.3 MMOL/L (3.5-5.1); SODIUM 138 MMOL/L (136-145)
[2018-10-17 22:37] LABS: ALANINE AMINOTRANSFERASE 23 U/L (12-78); ALBUMIN 3.1 G/DL (3.4-5.0); ALBUMIN/GLOBULIN RATIO 0.7 (1.0-2.7); ALKALINE PHOSPHATASE 113 U/L (46-116); ASPARTATE AMINO TRANSFERASE 18 U/L (15-37); BILIRUBIN,TOTAL 0.6 MG/DL (0.2-1.0); CREATINE KINASE 11 U/L (26-308)
--- NOTE | 2018-10-17 23:32 | Diagnostic Imaging Report ---
EXAM: XR Chest, 1 View CLINICAL HISTORY: CP TECHNIQUE: Frontal view of the chest. COMPARISON: 10/02/18. FINDINGS: Lungs: Mild increased hazy opacities in the lungs suggestive of edema and/or infiltrate. Pleural space: Left-sided pleural effusion with adjacent atelectasis versus infiltrate. This appears worse compared to the prior exam. Probable small right-sided pleural effusion which appears more prominent compared to the prior exam. No definite plain film evidence for pneumothorax. Heart: Question of prominence of the cardiac silhouette. Mediastinum: Unremarkable. Bones/joints: Multiple metallic densities are projected over the lower cervical spine. Degenerative changes of the thoracic spine. IMPRESSION: 1. Left-sided pleural effusion with adjacent atelectasis versus infiltrate. This appears worse compared to the prior exam. 2. Probable small right-sided pleural effusion which appears more prominent compared to the prior exam. 3. Mild increased hazy opacities in the lungs suggestive of edema and/or infiltrate.
[2018-10-18 00:30] VITALS: BP 146/86
== END 2018-10-18 00:30 | disposition home or self-care (01) ==
LOC: EDBD 21:47 → EMR 22:30
DX: J90 Pleural effusion, not elsewhere classified (principal); F03.90 Unspecified dementia, unspecified severity, without behavioral disturbance, psychotic disturbance, mood disturbance, and anxiety; I11.0 Hypertensive heart disease with heart failure; I50.9 Heart failure, unspecified; J44.9 Chronic obstructive pulmonary disease, unspecified; E11.9 Type 2 diabetes mellitus without complications; K21.9 Gastro-esophageal reflux disease without esophagitis; I44.7 Left bundle-branch block, unspecified; I25.10 Atherosclerotic heart disease of native coronary artery without angina pectoris; Z99.81 Dependence on supplemental oxygen
CPT/HCPCS: 36415; 71045; 80053; 82550; 83605; 84484; 85025; 87040; 99284